=== PATIENT | male | born 1945 | race Caucasian/White ===

== ENCOUNTER 2016-09-03 12:14 | Inpatient (IN) | payer MEDICARE ==
[~2016-09-03] VITALS: Ht 185.4 cm; Wt 96.7 kg
--- NOTE | ~2016-09-03 | CON ---
[place], [place] REPORT OF CONSULTATION NAME: JOHAN SETH UNIT #: [id number] ROOM: 410 DOCTOR: KALPANA STRONG MD BIRTHDATE: [birth year] DOS: 09/04/2016 This is a consultation note on this patient. HISTORY OF PRESENT ILLNESS: The patient had a takedown colostomy in month of July actually and he was last seen in my office almost 2 weeks ago or 3 weeks ago and that time, he had no symptoms whatsoever. However, he was followed by Dr. Rivera who is his primary physician and he did some lab workup there was a dropped in his hemoglobin and hematocrit and that is why he is admitted. He already had 1 unit of transfusion packed cells. He denies any upper GI bleed, lower GI bleed or any blood in the urine or any sputum or any abdominal pain, any nausea or vomiting. He is eating okay. He is making urine and he is having good bowel movement without any obvious blood or anything. He has multiple medical issues on multiple medications and has history of atrial fibrillation. PHYSICAL EXAMINATION: GENERAL: He is absolutely symptomless actually, in the artificial light cannot determine whether he is anemic or not, but he looks pale otherwise. ABDOMEN: Soft, nontender. Incision is healed up very well. There are no signs of erythema, ecchymosis, any hematoma, any hernia or any hepatosplenomegaly. EXTREMITIES: Show no pedal edema. Pulsation 4+ equal bilaterally. There is no pedal edema, no tenderness. There is no sign of any blood anywhere. RECTAL: Not done. LABORATORY DATA: His urine looks clear. His hemoglobin was 5.2 last night and after transfusion it is up to 6.5. IMPRESSION: Obvious microcytic anemia, etiology at this time is unknown at least grossly speaking radiologically, with CAT scan and clinically there is no sign of any obvious bleeding from or orifice or any retroperitoneum hematoma or any epistaxis or anything else. Status post takedown colostomy. Surgically speaking, there is no sign of any problem that I should be healing with. I will sign off on him and if needed for anything, I could be consulted again and I did talk to the patient and explained the same fact and he agrees. Kalpana Strong MD CM:CONSTR:REPORT OF CONSULTATION 1043 09/05/16 0007 interface
[~2016-09-03 12:14] MED LIST: ACETAMINOPHEN-H1 TA2 PO; ACYCLOVIR800 MG PO; ADALAT PO; AMLODIPINE BESYL5 MG PO; ANUSOL-HC25 MG R; ASPIR LOW81 MG PO; ASPIR-LOW81 MG PO; ASPIRIN FOR AR325 MG PO; ASPIRIN325 MG PO; ATOXIMETIN-B1 CAP PO; BACTRIM DS 8001 TA1 PO; CENTRUM1 TAB PO; CIPRO250 MG PO; CIPRO500 MG PO; COUMADIN10 M1 PO; COUMADIN5 M2 PO; COUMADIN5 MG PO; COUMADIN7.5 M1 PO; DAYPRO600 M1 PO; EES400 MG PO; EPA/GLA1 SGL; EPA1000 MG PO; FISH OIL; FISH OIL EC 1,1 EACH PO; FISH OIL1 IU PO; FLAGYL500 MG PO; HYDR12.5C PO; HYDR25T PO; IBU-8800 MG PO; K-TAB20 MEQ PO; KEFLEX500 MG PO; LEVOFLOXACIN500 MG PO; LIDEX 0.05% CRE15 GM T; LISINOPRIL20 MG PO; LISINOPRIL40 MG PO; LOPRESSOR25 MG PO; LOVAZA1 GM PO; METOPROLOL TART50 M1 PO; MOBIC15 MG PO; NIFEDIPINE10 MG PO; ORPHENADRINE100 MG PO; PLAVIX75 MG PO; PREVACID15 MG PO; PROCARDIA10 MG PO; SIMVASTATIN80 MG PO; STOOL SOFTENER100 M1; TOPROL XL100 MG PO; VIBRAMYCIN100 MG PO; VICODIN 5/500 505 MG PO; VITAMIN D; VITAMIN D31000 IU PO; VITAMIN D32000 I1 PO; VOLTAREN50 M1 PO; ZITHROMAX Z PA250 MG PO
[2016-09-03 12:26] LABS: HEMATOCRIT 22.9 % (42.0-52.0); HEMOGLOBIN 6.4 g/dl (14.0-18.0)
[2016-09-03 12:42] LABS: IRON 13 ug/dL (65-175); IRON SATURATION 3 %; UIBC 355 ug/dL (110-410)
[2016-09-03 19:10] VITALS: BP 147/73
[2016-09-03 19:12] VITALS: BP 147/73
[2016-09-03] MEDS ORDERED: COUMADIN10 M1 PO (20:05)
[2016-09-03] MEDS ORDERED: COUMADIN7.5 M1 PO (20:06)
[2016-09-03 20:44] LABS: HEMATOCRIT 20.7 % (42.0-52.0); MEAN CELL VOLUME 72.1 fl (80.0-94.0); MEAN CORPUSCULAR HGB 20.6 pg (27.0-31.0); MEAN CORPUSCULAR HGB CONC 28.5 g/dl (33.0-37.0); MEAN PLATELET VOLUME 9.1 fl (9.6-12.3); PLATELET COUNT AUTOMATED 239 10*3/uL (130-400); RED BLOOD COUNT 2.87 10*6/uL (4.50-5.90); RED CELL DISTRI WIDTH 17.7 % (0-14.5); WHITE BLOOD COUNT 6.3 10*3/uL (4.8-10.8)
[2016-09-03 20:48] LABS: HEMOGLOBIN 5.9 g/dl (14.0-18.0)
[2016-09-03 20:56] LABS: INTERNATIONAL NORM RATIO 1.6 (2.0-3.5); PROTHROMBIN TIME 17.2 SECONDS (9.0-12.4)
[2016-09-03 21:00] LABS: ALBUMIN 2.9 gm/dl (3.1-4.5); BILIRUBIN, TOTAL 0.2 mg/dl (0.2-1.0); POTASSIUM 3.8 mmol/L (3.5-5.1); TOTAL PROTEIN 6.6 gm/dL (6.4-8.2)
[2016-09-03 21:11] LABS: EOSINOPHIL # 0.3 10*3/uL (0-0.4); EOSINOPHILS 4 % (1-4); LYMPHOCYTE # 2.1 10*3/uL (1.3-4.4); MONOCYTE # 0.3 10*3/uL (0.1-1.0); NEUTROPHIL # 3.6 10*3/uL (2.3-7.9); NEUTROPHILS 57 % (47-73); PLATELET SUFFICIENCY NORMAL (NORMAL); POLYCHROMASIA SLIGHT; TOTAL CELLS COUNTED 100 #CELLS
[2016-09-03 21:13] LABS: BURR CELLS FEW; HYPOCHROMIA MODERATE; OVALOCYTES FEW
[2016-09-03 21:14] LABS: TARGET CELLS FEW
[2016-09-03 21:17] LABS: MICROCYTOSIS MODERATE
[2016-09-04] VITALS (23 sets, daily range): BP systolic 139–170; BP diastolic 53–92
[2016-09-04 00:35] LABS: CKMB 0.9 ng/ml (0.5-3.6); CPK 49 U/L (39-308); TROPONIN I < 0.015 ng/ml (<0.5)
[2016-09-04 01:39] LABS: BILIRUBIN NEGATIVE (NEGATIVE); BLOOD NEGATIVE (NEGATIVE); CLARITY CLEAR (CLEAR); COLOR YELLOW (YELLOW); GLUCOSE NEGATIVE (NEGATIVE); KETONE NEGATIVE (NEGATIVE); LEUKO ESTERASE NEGATIVE (NEGATIVE); NITRITE NEGATIVE (NEGATIVE); PROTEIN NEGATIVE (NEGATIVE); UROBILINOGEN 0.2 E.U./dl (0.2-1.0)
[2016-09-04 01:49] LABS: RBC 0-2 rbc/hpf (0-2)
[2016-09-04 03:51] LABS: HEMATOCRIT 25.7 % (42.0-52.0); HEMOGLOBIN 7.3 g/dl (14.0-18.0)
[2016-09-04 06:36] LABS: CKMB 0.6 ng/ml (0.5-3.6); CPK 44 U/L (39-308)
[2016-09-04 06:40] LABS: HEMOGLOBIN A1c 5.7 % (4.8-5.6)
[2016-09-04 06:41] LABS: TROPONIN I < 0.015 ng/ml (<0.5)
[2016-09-04 06:52] LABS: INTERNATIONAL NORM RATIO 1.5 (2.0-3.5); PROTHROMBIN TIME 16.6 SECONDS (9.0-12.4)
[2016-09-04 07:15] LABS: ALKALINE PHOSPHATASE 74 U/L (45-117); BILIRUBIN, TOTAL 0.9 mg/dl (0.2-1.0); BUN 16 mg/dl (7-24); CARBON DIOXIDE 28 mmol/L (21-32); CHLORIDE 106 mmol/L (98-107); CHOLESTEROL 128 mg/dL (<200); EST GLOM FILT AFRICAN AMERICAN > 60 ml/min; FREE T4 0.93 ng/dl (0.76-1.46); GLUCOSE 90 mg/dL (65-99); HDL CHOLESTEROL 37 mg/dl (40-60); LDL CHOLESTEROL 79 mg/dL (9-159); MAGNESIUM 2.2 mg/dL (1.5-2.1); PHOSPHOROUS 2.7 mg/dL (2.5-4.9); POTASSIUM 3.5 mmol/L (3.5-5.1); SGOT/AST 14 IU/L (3-35); SGPT/ALT 18 U/L (12-78); SODIUM 142 mmol/L (136-145); TOTAL PROTEIN 6.7 gm/dL (6.4-8.2); TRIGLYCERIDES 60 mg/dl (<150); VLDL CHOLESTEROL 12 mg/dL (6-40)
[2016-09-04 07:20] LABS: FOLIC ACID 19.44 ng/mL (>5.38)
[2016-09-04 07:26] LABS: BASO % 0.3 % (0.0-1.0); EOS # 0.2 10*3/uL (0.0-0.4); EOS % 2.5 % (1.0-4.0); HEMATOCRIT 25.5 % (42.0-52.0); HEMOGLOBIN 7.4 g/dl (14.0-18.0); LYMPH # 1.7 10*3/uL (1.3-4.4); LYMPH % 24.6 % (27.0-41.0); MEAN CELL VOLUME 73.5 fl (80.0-94.0); MEAN CORPUSCULAR HGB 21.3 pg (27.0-31.0); MONO # 0.6 10*3/uL (0.1-1.0); MONO % 8.2 % (3.0-9.0); NEUT # 4.4 10*3/uL (2.3-7.9); NEUT % 64.1 % (47.0-73.0); PLATELET COUNT AUTOMATED 269 10*3/uL (130-400); RED BLOOD COUNT 3.47 10*6/uL (4.50-5.90); RED CELL DISTRI WIDTH 18.7 % (0-14.5); WHITE BLOOD COUNT 6.8 10*3/uL (4.8-10.8)
[2016-09-04 12:07] LABS: HEMATOCRIT 27.5 % (42.0-52.0); HEMOGLOBIN 8.2 g/dl (14.0-18.0)
[2016-09-04 12:25] LABS: CPK 44 U/L (39-308)
[2016-09-04 12:26] LABS: CKMB < 0.5 ng/ml (0.5-3.6); TROPONIN I < 0.015 ng/ml (<0.5)
[2016-09-05] VITALS: BP 148/88
[2016-09-05 06:07] LABS: BASO % 0.2 % (0.0-1.0); EOS # 0.2 10*3/uL (0.0-0.4); EOS % 2.8 % (1.0-4.0); HEMOGLOBIN 9.4 g/dl (14.0-18.0); LYMPH # 2.6 10*3/uL (1.3-4.4); LYMPH % 30.8 % (27.0-41.0); MEAN CELL VOLUME 74.9 fl (80.0-94.0); MEAN CORPUSCULAR HGB 22.7 pg (27.0-31.0); MEAN CORPUSCULAR HGB CONC 30.3 g/dl (33.0-37.0); MEAN PLATELET VOLUME 10.4 fl (9.6-12.3); MONO # 0.8 10*3/uL (0.1-1.0); MONO % 9.8 % (3.0-9.0); NEUT # 4.8 10*3/uL (2.3-7.9); NUCLEATED RED BLOOD CELL 0.2 % (0.0-0.0); PLATELET COUNT AUTOMATED 300 10*3/uL (130-400); RED BLOOD COUNT 4.14 10*6/uL (4.50-5.90); RED CELL DISTRI WIDTH 19.8 % (0-14.5); WHITE BLOOD COUNT 8.5 10*3/uL (4.8-10.8)
[2016-09-05 06:52] LABS: INTERNATIONAL NORM RATIO 1.7 (2.0-3.5); PROTHROMBIN TIME 18.1 SECONDS (9.0-12.4)
[2016-09-05 08:00] VITALS: BP 160/80
[2016-09-05 12:00] VITALS: BP 153/78
[2016-09-05] MEDS ORDERED: FEROSUL325 MG PO (15:21)
== END 2016-09-05 15:42 | disposition home or self-care (01) | DRG 811 ==
LOC: ZRVPINT2 12:14 → 4E 18:48
PROVIDERS: Internal Medicine; Student in an Organized Health Care Education/Training Program
PROC: 30233N1 Transfusion of Nonautologous Red Blood Cells into Peripheral Vein, Percutaneous Approach (ICD-10-PCS; principal; 2016-09-03)
DX: D50.9 Iron deficiency anemia, unspecified (principal); N17.0 Acute kidney failure with tubular necrosis; E44.0 Moderate protein-calorie malnutrition; D68.59 Other primary thrombophilia; E83.51 Hypocalcemia; N30.90 Cystitis, unspecified without hematuria; I48.91 Unspecified atrial fibrillation; I10 Essential (primary) hypertension; E78.5 Hyperlipidemia, unspecified; R00.0 Tachycardia, unspecified; R73.9 Hyperglycemia, unspecified; I25.10 Atherosclerotic heart disease of native coronary artery without angina pectoris; M45.9 Ankylosing spondylitis of unspecified sites in spine; K57.90 Diverticulosis of intestine, part unspecified, without perforation or abscess without bleeding; Z79.01 Long term (current) use of anticoagulants; Z68.28 Body mass index [BMI] 28.0-28.9, adult

== ENCOUNTER → 2016-09-07 | Outpatient (CLI) | payer MEDICARE ==
[~2016-09-07] MED LIST changes: +FEROSUL325 MG PO; +NORVASC10 MG PO
[2016-09-07 10:58] LABS: BASO % 0.3 % (0.0-1.0); EOS # 0.1 10*3/uL (0.0-0.4); HEMATOCRIT 33.9 % (42.0-52.0); LYMPH # 1.7 10*3/uL (1.3-4.4); LYMPH % 23.8 % (27.0-41.0); MEAN CELL VOLUME 76.7 fl (80.0-94.0); MEAN CORPUSCULAR HGB 22.6 pg (27.0-31.0); MEAN CORPUSCULAR HGB CONC 29.5 g/dl (33.0-37.0); MEAN PLATELET VOLUME 9.7 fl (9.6-12.3); MONO # 0.5 10*3/uL (0.1-1.0); MONO % 6.7 % (3.0-9.0); NEUT # 4.7 10*3/uL (2.3-7.9); NEUT % 66.8 % (47.0-73.0); PLATELET COUNT AUTOMATED 300 10*3/uL (130-400); RED BLOOD COUNT 4.42 10*6/uL (4.50-5.90)
[2016-09-07 11:27] LABS: INTERNATIONAL NORM RATIO 1.9 (2.0-3.5); PROTHROMBIN TIME 21.1 SECONDS (9.0-12.4)
== END | disposition home or self-care (01) ==
LOC: LAB 10:03
PROVIDERS: Internal Medicine
DX: D50.9 Iron deficiency anemia, unspecified (principal)

== ENCOUNTER 2016-10-30 20:03 | Inpatient (IN) | payer MEDICARE ==
[~2016-10-30] VITALS: Ht 185.4 cm; Wt 91.3 kg
--- NOTE | ~2016-10-30 | PR ---
[place], [place] PROGRESS NOTE NAME: JOHAN SETH UNIT #: [id number] ROOM: 411 DOCTOR: MELISSA EPSTEIN MD BIRTHDATE: [birth year] DOS: 11/01/2016 CARDIOLOGY PROGRESS NOTE REASON FOR VISIT: Atrial fibrillation, coronary artery disease. HISTORY OF PRESENT ILLNESS: The patient is feeling better. Denies any chest pain or shortness of breath. His abdominal discomfort is almost resolved. No nausea, no vomiting. Denies any palpitations or dizziness, no fever, no chills. No orthopnea. REVIEW OF SYSTEMS: Review of the 8 systems negative except as mentioned above. RHYTHM STRIPS: The patient is in atrial fibrillation. PHYSICAL EXAMINATION: VITAL SIGNS: Blood pressure 177/92, pulse 73, respiratory rate was 14. GENERAL: Alert, comfortable, in no acute distress. HEENT: Pupils are round. No jaundice. Tongue was moist and pharynx was clear. NECK: Supple, no distended neck veins, no carotid bruit. CHEST: Symmetrical, nontender. LUNGS: Clear to auscultation bilaterally. HEART: Irregularly irregular. No S3. ABDOMEN: Bowel sounds normal, nontender. EXTREMITIES: Showed no edema. Distal pulses are palpable. MEDICATIONS: medications reviewed. LABORATORY DATA: Reviewed. IMPRESSION: 1. Chronic atrial fibrillation. 2. Coronary artery disease, status post stents about 10 years ago. 3. Hypertension. 4. Small-bowel obstruction, currently improving. RECOMMENDATIONS: 1. Denies any chest pain or shortness of breath. His cardiac medications and blood pressure medications are resumed today. 2. We will resume Coumadin tomorrow if he is stable. 3. No further cardiac testing. 4. Discussed with Dr. Bowers about resuming Coumadin tomorrow unless he needs surgical intervention. [place], [place] PROGRESS NOTE NAME: JOHAN SETH [place] UNIT #: [id number] ROOM: 411 DOCTOR: MELISSA EPSTEIN MD BIRTHDATE: [birth year] MELISSA EPSTEIN MD CM:ERASMOTRANS [id number] MELISSA EPSTEIN MD 11/02/16 0039 interface
--- NOTE | ~2016-10-30 | PR ---
[place], [place] PROGRESS NOTE NAME: JOHAN SETH UNIT #: [id number] ROOM: 411 DOCTOR: MELISSA EPSTEIN MD BIRTHDATE: [birth year] DOS: 11/03/2016 CARDIOLOGY PROGRESS NOTE REASON FOR VISIT: Atrial fibrillation and coronary artery disease. SUBJECTIVE: The patient is feeling better. He is tolerating his diet and p.o. medications. No abdominal pain. He is ambulating without any discomfort. He is anticipating discharge today. No chest pain or shortness of breath. No PND. No orthopnea. No edema. REVIEW OF SYSTEMS: Review of the 8 systems is negative. PHYSICAL EXAMINATION: VITAL SIGNS: Blood pressure 137/77, pulse 56, respiratory rate 18. GENERAL: Alert, comfortable, in no acute distress. NECK: Supple. No distended neck veins. No carotid bruit. CHEST: Symmetrical, nontender. LUNGS: Clear to auscultation bilaterally. HEART: Slightly irregular. No S3. ABDOMEN: Nontender. Bowel sounds normal. EXTREMITIES: Showed no edema. Distal pulses are palpable. DIAGNOSTIC TESTS: Review of the diagnostic test, INR is 1.4. IMPRESSION: 1. Chronic atrial fibrillation. 2. Coronary artery disease, status post stents long time ago. 3. Small bowel obstruction, resolved. 4. Hypertension, much better than yesterday. RECOMMENDATIONS: 1. Continue current medications. 2. Keep the INR 2 to 3. 3. If he goes home today, he needs to have his INR checked within a couple of days as well as early next week. 4. He will follow up with Dr. Painter in 2-3 weeks after discharge. [place], [place] PROGRESS NOTE NAME: JOHAN SETH UNIT #: [id number] ROOM: 411 DOCTOR: MELISSA EPSTEIN MD BIRTHDATE: [birth year] MELISSA EPSTEIN MD CM:PNTRANS [id number] 6 MELISSA EPSTEIN MD 11/05/16 05 interface
--- NOTE | ~2016-10-30 | PR ---
[place], [place] PROGRESS NOTE NAME: JOHAN SETH UNIT #: [id number] ROOM: 411 DOCTOR: MELISSA EPSTEIN MD BIRTHDATE: [birth year] DOS: 11/02/2016 REASON FOR VISIT: Atrial fibrillation and coronary artery disease. HISTORY OF PRESENT ILLNESS: The patient is feeling better and he is tolerating p.o. diet and medications. His abdominal discomfort has resolved. No chest pain, dizziness or palpitations. No nausea, no PND, no orthopnea. REVIEW OF SYSTEMS: Eight systems negative. RHYTHM STRIPS: The patient was in atrial fibrillation. PHYSICAL EXAMINATION: VITAL SIGNS: Blood pressure 170/98, pulse 69 and respiratory rate of 20. GENERAL: Alert, comfortable, in no acute distress. HEAD AND NECK: Neck is supple. No distended neck veins. No carotid bruits. CHEST: Symmetrical, nontender. LUNGS: Clear to auscultation bilaterally. HEART: Irregularly irregular, grade 1/6 systolic murmur. No S3, no palpable thrills. ABDOMEN: Benign, nontender. Bowel sounds normal. EXTREMITIES: Showed no edema. Distal pulses are palpable. SKIN: Warm and dry. No cyanosis, no clubbing. MEDICATIONS: Reviewed. IMPRESSION: 1. Chronic atrial fibrillation, rate controlled. 2. Coronary artery disease, status post stents over 10 years ago. 3. Hypertension, needs better control. 4. Small-bowel obstruction, currently resolving. RECOMMENDATIONS: 1. His blood pressure medications resumed. 2. Continue to watch his blood pressure and heart rates. 3. We will resume the Coumadin today and monitor his INR. 4. If he is stable, possible discharge tomorrow and he will get his protime done at Dr. Rivera's office. 5. Follow up with Dr. Painter in 2-3 weeks after discharge. [place], [place] PROGRESS NOTE NAME: ROLOJOHAN Batool UNIT #: [id number] ROOM: 411 DOCTOR: MELISSA EPSTEIN MD BIRTHDATE: [birth year] MELISSA EPSTEIN MD CM:PNTRANS [id number] MELISSA EPSTEIN MD 11/04/16 0120 interface
--- NOTE | ~2016-10-30 | CON ---
[place], [place] REPORT OF CONSULTATION NAME: JOHAN SETH UNIT #: [id number] ROOM: 411 DOCTOR: MELISSA EPSTEIN MD BIRTHDATE: [birth year] DOS: 10/31/2016 CARDIOLOGY CONSULTATION REPORT REASONS FOR CONSULTATION: Cardiac clearance for surgery and also coronary artery disease and atrial fibrillation. HISTORY OF PRESENT ILLNESS: The patient is a 71-year-old gentleman, known to Dr. Painter for his coronary artery disease and atrial fibrillation. He was admitted with abdominal discomfort and for small bowel obstruction and was admitted to the hospital and Dr. Bowers was consulted and he may require possible abdominal surgery and Cardiology was consulted for cardiac clearance for the surgery. He denied any chest pain, shortness of breath or palpitations. No dizziness, no edema, no orthopnea, no headache and no syncopal attacks. Only his complaint is abdominal pain with 1 episode of vomiting at home. History of multiple bowel surgeries in the past. REVIEW OF SYSTEMS: Review of the 8 systems negative, except as mentioned above. PAST MEDICAL HISTORY: 1. Coronary artery disease, status post history of stents over 10 years ago. 2. Chronic atrial fibrillation, on anticoagulation. 3. Dyslipidemia. 4. Hypertension. 5. History of transient ischemic attack about 20 years ago. 6. Arthritis. 7. Diverticulosis. 8. Ankylosing spondylitis. PAST SURGICAL HISTORY: 1. History of cholecystectomy. 2. History of colostomy. 3. Cardiac stents. 4. Colostomy, which is reversed. SOCIAL HISTORY: The patient does not drink or use illicit drugs and does not smoke. FAMILY HISTORY: 1. Father at the age of 65 from myocardial infarction, had hypertension. 2. Mother at the age around 60 years from aneurysm. 3. Sister has breast cancer. ALLERGIES: THE PATIENT IS ALLERGIC TO PENICILLIN, CAUSES HIVES AND REDNESS. HOME MEDICATIONS: Reviewed. PHYSICAL EXAMINATION: GENERAL: The patient is alert and oriented, in no acute distress. [place], [place] REPORT OF CONSULTATION NAME: JOHAN SETH UNIT #: [id number] ROOM: 411 DOCTOR: MELISSA EPSTEIN MD BIRTHDATE: [birth year] VITAL SIGNS: Blood pressure is 160/88, pulse 71 and respiratory rate is 14. HEAD AND NECK: Pupils are round and equal. No jaundice. Tongue was moist and pharynx was clear. Neck was supple. No distended veins and no carotid bruit. Thyroid not palpable. CHEST: Symmetrical, nontender. LUNGS: Clear to auscultation with good air entry. HEART: Irregular. Grade 1/6 systolic murmur. No S3 and no palpable thrills. ABDOMEN: Showed diminished bowel sounds, nontender. No palpable aorta. Previous scar from surgery. EXTREMITIES: Showed no edema. Distal pulses are palpable. SKIN: Warm and dry. No cyanosis and no clubbing. PSYCHIATRIC: The patient is alert, oriented. No focal neurologic deficits. GENITOURINARY: Examination deferred. RECTAL: Examination deferred. REVIEW OF THE DIAGNOSTIC TESTS: EKG showed atrial fibrillation with some inferolateral ST changes, nondiagnostic. CBC, chemistry and pertinent labs reviewed. CURRENT MEDICATIONS: Reviewed. IMPRESSION: 1. Small bowel obstruction. 2. History of chronic atrial fibrillation, rate is controlled. 3. Coronary artery disease, status post previous stents over 10 years ago. 4. Hypertension. 5. History of dyslipidemia. 6. History of multiple abdominal surgeries. 7. History of transient ischemic attack over 20 years ago. RECOMMENDATIONS: 1. Currently, he is n.p.o. 2. Denies any chest pain or shortness of breath at home. 3. Clinically, there are no signs of heart failure. 4. He will be cleared for his surgical procedure. From the cardiac-standpoint, has moderate cardiac risks and the patient is aware of the risks and is agreeable to proceed with the abdominal surgery if required. 5. Continue Lovenox while he is off Coumadin and Lovenox will be held prior to surgery and resumed postoperatively and also resume his Coumadin and aspirin postoperatively. 6. When he tolerates p.o. medications, resume his beta-blockers and statins. 7. There is no family at the bedside. The above treatment plan discussed with the patient and all questions answered. CONSULTING PHYSICIAN: Anne Moore DO. PRIMARY CARE PHYSICIAN: Colleen Rivera DO. [place], [place] REPORT OF CONSULTATION NAME: JOHAN SETH UNIT #: [id number] ROOM: 411 DOCTOR: TETE LINDER,MELISSA BIRTHDATE: [birth year] MELISSA EPSTEIN MD CM:CONSTR:REPORT OF CONSULTATION 1607 10/31/16 2357 interface
[~2016-10-30 20:03] MED LIST changes: -NORVASC10 MG PO
[2016-10-30 20:22] VITALS: BP 169/93
[2016-10-30 21:59] LABS: BASO % 0.2 % (0.0-1.0); EOS % 0.1 % (1.0-4.0); HEMATOCRIT 45.7 % (42.0-52.0); IG # 0.1 10*3/uL (0.0-0.1); LYMPH # 1.2 10*3/uL (1.3-4.4); LYMPH % 7.4 % (27.0-41.0); MEAN CELL VOLUME 80.2 fl (80.0-94.0); MEAN CORPUSCULAR HGB 26.3 pg (27.0-31.0); MEAN CORPUSCULAR HGB CONC 32.8 g/dl (33.0-37.0); MEAN PLATELET VOLUME 9.2 fl (9.6-12.3); MONO # 0.9 10*3/uL (0.1-1.0); MONO % 5.4 % (3.0-9.0); NEUT # 14.4 10*3/uL (2.3-7.9); NEUT % 86.5 % (47.0-73.0); PLATELET COUNT AUTOMATED 290 10*3/uL (130-400); RED CELL DISTRI WIDTH 20.3 % (0-14.5); WHITE BLOOD COUNT 16.6 10*3/uL (4.8-10.8)
[2016-10-30 22:20] LABS: ALBUMIN 3.8 gm/dl (3.1-4.5); ALKALINE PHOSPHATASE 88 U/L (45-117); BILIRUBIN, DIRECT 0.1 mg/dL (0.0-0.2); BILIRUBIN, TOTAL 0.5 mg/dl (0.2-1.0); BUN 19 mg/dl (7-24); CARBON DIOXIDE 27 mmol/L (21-32); CHLORIDE 102 mmol/L (98-107); EST GLOM FILT AFRICAN AMERICAN > 60 ml/min; GLUCOSE 140 mg/dL (65-99); POTASSIUM 3.4 mmol/L (3.5-5.1); SGOT/AST 29 IU/L (3-35); SGPT/ALT 41 U/L (12-78); SODIUM 141 mmol/L (136-145); TOTAL PROTEIN 8.3 gm/dL (6.4-8.2)
[2016-10-31 01:37] VITALS: BP 167/95
[2016-10-31 02:39] LABS: BILIRUBIN NEGATIVE (NEGATIVE); BLOOD NEGATIVE (NEGATIVE); CLARITY CLEAR (CLEAR); COLOR YELLOW (YELLOW); GLUCOSE NEGATIVE (NEGATIVE); KETONE NEGATIVE (NEGATIVE); LEUKO ESTERASE NEGATIVE (NEGATIVE); NITRITE NEGATIVE (NEGATIVE); PROTEIN 1+ (NEGATIVE); SPECIFIC GRAVITY 1.015 (1.005-1.030); UROBILINOGEN 0.2 E.U./dl (0.2-1.0)
[2016-10-31 02:45] VITALS: BP 157/77
[2016-10-31 03:07] LABS: URINE REFLEX COMMENT NO (NO)
[2016-10-31 06:40] LABS: BASO % 0.2 % (0.0-1.0); EOS # 0.1 10*3/uL (0.0-0.4); EOS % 0.4 % (1.0-4.0); HEMOGLOBIN 13.3 g/dl (14.0-18.0); LYMPH % 17.4 % (27.0-41.0); MEAN CELL VOLUME 81.6 fl (80.0-94.0); MEAN CORPUSCULAR HGB 25.8 pg (27.0-31.0); MEAN CORPUSCULAR HGB CONC 31.7 g/dl (33.0-37.0); MEAN PLATELET VOLUME 9.4 fl (9.6-12.3); MONO # 0.7 10*3/uL (0.1-1.0); MONO % 5.8 % (3.0-9.0); NEUT # 8.9 10*3/uL (2.3-7.9); NEUT % 75.9 % (47.0-73.0); PLATELET COUNT AUTOMATED 270 10*3/uL (130-400); RED BLOOD COUNT 5.15 10*6/uL (4.50-5.90); RED CELL DISTRI WIDTH 20.3 % (0-14.5); WHITE BLOOD COUNT 11.7 10*3/uL (4.8-10.8)
[2016-10-31 07:02] LABS: HEMOGLOBIN A1c 5.2 % (4.8-5.6)
[2016-10-31 07:11] LABS: BUN 18 mg/dl (7-24); CARBON DIOXIDE 31 mmol/L (21-32); CHLORIDE 104 mmol/L (98-107); CHOLESTEROL 159 mg/dL (<200); EST GLOM FILT AFRICAN AMERICAN > 60 ml/min; GLUCOSE 115 mg/dL (65-99); INTERNATIONAL NORM RATIO 1.9 (2.0-3.5); MAGNESIUM 2.5 mg/dL (1.5-2.1); POTASSIUM 3.6 mmol/L (3.5-5.1); PROTHROMBIN TIME 20.8 SECONDS (9.0-12.4); SODIUM 143 mmol/L (136-145)
[2016-10-31 07:23] LABS: HDL CHOLESTEROL 32 mg/dl (40-60); LDL CHOLESTEROL 104 mg/dL (9-159); PHOSPHOROUS 3.4 mg/dL (2.5-4.9); TRIGLYCERIDES 117 mg/dl (<150); VLDL CHOLESTEROL 23 mg/dL (6-40)
[2016-10-31 07:35] LABS: VITAMIN D, 25-HYDROXY 30.4 ng/mL (30-100)
[2016-10-31 07:43] LABS: FOLIC ACID > 24.00 ng/mL (>5.38)
[2016-10-31 08:00] VITALS: BP 162/86
[2016-10-31 12:00] VITALS: BP 168/84
[2016-10-31 16:00] VITALS: BP 164/78
[2016-10-31 20:00] VITALS: BP 148/74
[2016-11-01] VITALS: BP 160/80
[2016-11-01 06:14] LABS: BASO % 0.2 % (0.0-1.0); EOS # 0.1 10*3/uL (0.0-0.4); EOS % 0.6 % (1.0-4.0); HEMOGLOBIN 13.1 g/dl (14.0-18.0); LYMPH # 2.4 10*3/uL (1.3-4.4); LYMPH % 22.6 % (27.0-41.0); MEAN CELL VOLUME 81.8 fl (80.0-94.0); MEAN CORPUSCULAR HGB 26.1 pg (27.0-31.0); MONO # 0.8 10*3/uL (0.1-1.0); NEUT # 7.5 10*3/uL (2.3-7.9); NEUT % 69.4 % (47.0-73.0); PLATELET COUNT AUTOMATED 232 10*3/uL (130-400); RED BLOOD COUNT 5.01 10*6/uL (4.50-5.90); RED CELL DISTRI WIDTH 20.1 % (0-14.5); WHITE BLOOD COUNT 10.8 10*3/uL (4.8-10.8)
[2016-11-01 06:50] LABS: PROTHROMBIN TIME 22.1 SECONDS (9.0-12.4)
[2016-11-01 08:00] VITALS: BP 177/92
[2016-11-01 10:30] VITALS: BP 160/80
[2016-11-01 12:00] VITALS: BP 158/89
[2016-11-01 16:00] VITALS: BP 150/77
[2016-11-01 20:00] VITALS: BP 154/85
[2016-11-02] VITALS: BP 150/68
[2016-11-02 06:21] LABS: INTERNATIONAL NORM RATIO 1.7 (2.0-3.5); PROTHROMBIN TIME 18.2 SECONDS (9.0-12.4)
[2016-11-02 08:00] VITALS: BP 170/98
[2016-11-02 12:00] VITALS: BP 134/66
[2016-11-02 16:00] VITALS: BP 156/71
[2016-11-02 20:00] VITALS: BP 161/78
[2016-11-03] VITALS: BP 157/77
[2016-11-03 07:15] LABS: INTERNATIONAL NORM RATIO 1.4 (2.0-3.5)
[2016-11-03 08:00] VITALS: BP 178/92
[2016-11-03] MEDS ORDERED: NORVASC10 MG PO (09:54)
== END 2016-11-03 12:17 | disposition home or self-care (01) | DRG 389 ==
LOC: ED 20:03 → EDHOLD 23:41 → 4E 23:41
PROVIDERS: Emergency Medicine; Internal Medicine; Internal Medicine Hospice and Palliative Medicine
DX: K56.5 Intestinal adhesions [bands] with obstruction (postinfection) (principal); D68.59 Other primary thrombophilia; I48.2 Chronic atrial fibrillation; R73.9 Hyperglycemia, unspecified; I25.10 Atherosclerotic heart disease of native coronary artery without angina pectoris; M45.9 Ankylosing spondylitis of unspecified sites in spine; E87.6 Hypokalemia; M15.9 Polyosteoarthritis, unspecified; E78.5 Hyperlipidemia, unspecified; I10 Essential (primary) hypertension; Z86.73 Personal history of transient ischemic attack (TIA), and cerebral infarction without residual deficits; Z90.49 Acquired absence of other specified parts of digestive tract; Z95.5 Presence of coronary angioplasty implant and graft; Z93.3 Colostomy status; Z82.49 Family history of ischemic heart disease and other diseases of the circulatory system; Z80.3 Family history of malignant neoplasm of breast; Z88.0 Allergy status to penicillin; Z79.82 Long term (current) use of aspirin; Z79.01 Long term (current) use of anticoagulants; Z79.899 Other long term (current) drug therapy

== ENCOUNTER 2016-11-30 19:11 | Inpatient (IN) | payer MEDICARE ==
[~2016-11-30] VITALS: Ht 185.4 cm; Wt 94.9 kg
[~2016-11-30 19:11] MED LIST changes: +NORVASC10 MG PO
[2016-11-30 19:27] VITALS: BP 154/82
[2016-11-30 20:25] LABS: BASO % 0.2 % (0.0-1.0); EOS # 0.1 10*3/uL (0.0-0.4); EOS % 1.5 % (1.0-4.0); HEMATOCRIT 41.6 % (42.0-52.0); HEMOGLOBIN 13.9 g/dl (14.0-18.0); LYMPH % 23.5 % (27.0-41.0); MEAN CELL VOLUME 81.6 fl (80.0-94.0); MEAN CORPUSCULAR HGB 27.3 pg (27.0-31.0); MEAN CORPUSCULAR HGB CONC 33.4 g/dl (33.0-37.0); MEAN PLATELET VOLUME 9.7 fl (9.6-12.3); MONO # 0.7 10*3/uL (0.1-1.0); MONO % 7.5 % (3.0-9.0); NEUT # 5.8 10*3/uL (2.3-7.9); NEUT % 67.1 % (47.0-73.0); PLATELET COUNT AUTOMATED 231 10*3/uL (130-400); RED CELL DISTRI WIDTH 17.3 % (0-14.5); WHITE BLOOD COUNT 8.6 10*3/uL (4.8-10.8)
[2016-11-30 20:34] LABS: BILIRUBIN NEGATIVE (NEGATIVE); BLOOD TRACE-INTACT (NEGATIVE); CLARITY SL CLOUDY (CLEAR); COLOR YELLOW (YELLOW); GLUCOSE NEGATIVE (NEGATIVE); KETONE NEGATIVE (NEGATIVE); LEUKO ESTERASE NEGATIVE (NEGATIVE); NITRITE NEGATIVE (NEGATIVE); PH 6.5 (5.0-9.0); PROTEIN NEGATIVE (NEGATIVE); UROBILINOGEN 0.2 E.U./dl (0.2-1.0)
[2016-11-30 20:41] LABS: ALBUMIN 3.7 gm/dl (3.1-4.5); ALKALINE PHOSPHATASE 83 U/L (45-117); BILIRUBIN, TOTAL 0.4 mg/dl (0.2-1.0); BUN 16 mg/dl (7-24); C-REACTIVE PROTEIN 0.68 MG/DL (0-0.3); CARBON DIOXIDE 33 mmol/L (21-32); CHLORIDE 102 mmol/L (98-107); EST GLOM FILT AFRICAN AMERICAN > 60 ml/min; GLUCOSE 108 mg/dL (65-99); POTASSIUM 3.2 mmol/L (3.5-5.1); SGOT/AST 19 IU/L (3-35); SGPT/ALT 31 U/L (12-78); SODIUM 142 mmol/L (136-145); TOTAL PROTEIN 7.8 gm/dL (6.4-8.2)
[2016-11-30 20:47] LABS: BACTERIA 1+; EPITHELIAL CELLS 0-2; RBC 0-2 rbc/hpf (0-2); URINE REFLEX COMMENT NO (NO)
[2016-12-01] VITALS: BP 188/86
[2016-12-01 01:00] VITALS: BP 188/86
[2016-12-01 06:17] LABS: BASO % 0.1 % (0.0-1.0); EOS # 0.1 10*3/uL (0.0-0.4); EOS % 1.2 % (1.0-4.0); HEMATOCRIT 41.3 % (42.0-52.0); HEMOGLOBIN 13.4 g/dl (14.0-18.0); LYMPH % 21.9 % (27.0-41.0); MEAN CELL VOLUME 82.6 fl (80.0-94.0); MEAN CORPUSCULAR HGB 26.8 pg (27.0-31.0); MEAN CORPUSCULAR HGB CONC 32.4 g/dl (33.0-37.0); MONO # 0.8 10*3/uL (0.1-1.0); MONO % 8.3 % (3.0-9.0); NEUT # 6.4 10*3/uL (2.3-7.9); NEUT % 68.3 % (47.0-73.0); PLATELET COUNT AUTOMATED 243 10*3/uL (130-400); RED CELL DISTRI WIDTH 17.6 % (0-14.5); WHITE BLOOD COUNT 9.3 10*3/uL (4.8-10.8)
[2016-12-01 06:35] LABS: CKMB 0.6 ng/ml (0.5-3.6); CPK 60 U/L (39-308)
[2016-12-01 06:48] LABS: TROPONIN I < 0.015 ng/ml (<0.045)
[2016-12-01 06:59] LABS: CHLORIDE 103 mmol/L (98-107); POTASSIUM 3.4 mmol/L (3.5-5.1); SODIUM 142 mmol/L (136-145)
[2016-12-01 07:10] LABS: VITAMIN D, 25-HYDROXY 29.7 ng/mL (30-100)
[2016-12-01 07:12] LABS: FOLIC ACID > 24.00 ng/mL (>5.38)
[2016-12-01 07:13] LABS: ALBUMIN 3.4 gm/dl (3.1-4.5); ALKALINE PHOSPHATASE 90 U/L (45-117); BILIRUBIN, TOTAL 0.5 mg/dl (0.2-1.0); BUN 13 mg/dl (7-24); CARBON DIOXIDE 29 mmol/L (21-32); EST GLOM FILT AFRICAN AMERICAN > 60 ml/min; FREE T4 0.81 ng/dl (0.76-1.46); GLUCOSE 115 mg/dL (65-99); MAGNESIUM 2.3 mg/dL (1.5-2.1); PHOSPHOROUS 2.8 mg/dL (2.5-4.9); SGOT/AST 155 IU/L (3-35); SGPT/ALT 116 U/L (12-78); TOTAL PROTEIN 7.5 gm/dL (6.4-8.2)
[2016-12-01 07:15] LABS: PROTHROMBIN TIME 22.1 SECONDS (9.0-12.4)
[2016-12-01 08:00] VITALS: BP 146/64
[2016-12-01 12:00] VITALS: BP 140/64
[2016-12-01 12:09] LABS: CPK 63 U/L (39-308)
[2016-12-01 12:10] LABS: CKMB 0.6 ng/ml (0.5-3.6)
[2016-12-01 12:11] LABS: TROPONIN I < 0.015 ng/ml (<0.045)
[2016-12-01 16:00] VITALS: BP 155/73
[2016-12-01 18:27] LABS: CPK 66 U/L (39-308)
[2016-12-01 18:28] LABS: CKMB < 0.5 ng/ml (0.5-3.6); TROPONIN I < 0.015 ng/ml (<0.045)
[2016-12-01 20:00] VITALS: BP 172/86
[2016-12-02] VITALS: BP 153/59
[2016-12-02 07:28] LABS: INTERNATIONAL NORM RATIO 2.1 (2.0-3.5); PROTHROMBIN TIME 23.4 SECONDS (9.0-12.4)
[2016-12-02 07:30] LABS: ALBUMIN 3.4 gm/dl (3.1-4.5); ALKALINE PHOSPHATASE 86 U/L (45-117); BILIRUBIN, TOTAL 0.4 mg/dl (0.2-1.0); BUN 14 mg/dl (7-24); CARBON DIOXIDE 29 mmol/L (21-32); CHLORIDE 106 mmol/L (98-107); EST GLOM FILT AFRICAN AMERICAN > 60 ml/min; GLUCOSE 95 mg/dL (65-99); POTASSIUM 3.7 mmol/L (3.5-5.1); SGOT/AST 44 IU/L (3-35); SGPT/ALT 69 U/L (12-78); SODIUM 145 mmol/L (136-145)
[2016-12-02 08:00] VITALS: BP 120/86
[2016-12-02] MEDS ORDERED: NAPROXEN375 MG PO (09:34)
== END 2016-12-02 10:46 | disposition home or self-care (01) | DRG 372 ==
LOC: ED 19:11 → 4E 23:35 → EDHOLD 23:35 → 4E 23:42
PROVIDERS: Emergency Medicine Emergency Medical Services; Internal Medicine; Internal Medicine Hospice and Palliative Medicine
DX: A04.9 Bacterial intestinal infection, unspecified (principal); K56.60 Unspecified intestinal obstruction; E44.0 Moderate protein-calorie malnutrition; D68.59 Other primary thrombophilia; I48.2 Chronic atrial fibrillation; D64.9 Anemia, unspecified; I10 Essential (primary) hypertension; E78.5 Hyperlipidemia, unspecified; E87.6 Hypokalemia; R31.29 Other microscopic hematuria; R82.71 Bacteriuria; R73.9 Hyperglycemia, unspecified; I25.10 Atherosclerotic heart disease of native coronary artery without angina pectoris; M19.90 Unspecified osteoarthritis, unspecified site; M45.9 Ankylosing spondylitis of unspecified sites in spine; R74.0 Nonspecific elevation of levels of transaminase and lactic acid dehydrogenase [LDH]; K57.90 Diverticulosis of intestine, part unspecified, without perforation or abscess without bleeding; Z86.73 Personal history of transient ischemic attack (TIA), and cerebral infarction without residual deficits; Z68.29 Body mass index [BMI] 29.0-29.9, adult; Z90.49 Acquired absence of other specified parts of digestive tract; Z82.49 Family history of ischemic heart disease and other diseases of the circulatory system; Z80.3 Family history of malignant neoplasm of breast; Z84.89 Family history of other specified conditions; Z95.818 Presence of other cardiac implants and grafts; Z88.0 Allergy status to penicillin; Z79.82 Long term (current) use of aspirin; Z79.899 Other long term (current) drug therapy

== ENCOUNTER 2016-12-19 16:05 | Emergency (ER) | payer MEDICARE ==
[~2016-12-19] VITALS: Ht 185.4 cm; Wt 97.5 kg
--- NOTE | ~2016-12-19 | EKG ---
[place], [place] ELECTROCARDIOGRAM REPORT NAME: JOHAN SETH UNIT #: [id number] ROOM: DOCTOR: RODRIGUE ANTUNEZ MD BIRTHDATE: [birth year] DOS: 12/19/2016 TIME: 1755 hours. Atrial fibrillation with slow ventricular response. Abnormal electrocardiogram. RODRIGUE ANTUNEZ MD CM:EKGRPT:ELECTROCARDIOGRAM REPORT 1224 1614 RODRIGUE ANTUNEZ MD
[~2016-12-19 16:05] MED LIST changes: +NAPROXEN375 MG PO
[2016-12-19 17:15] LABS: BASO % 0.2 % (0.0-1.0); EOS % 0.4 % (1.0-4.0); HEMATOCRIT 33.5 % (42.0-52.0); HEMOGLOBIN 11.1 g/dl (14.0-18.0); LYMPH % 20.3 % (27.0-41.0); MEAN CELL VOLUME 84.4 fl (80.0-94.0); MEAN CORPUSCULAR HGB CONC 33.1 g/dl (33.0-37.0); MONO # 0.5 10*3/uL (0.1-1.0); MONO % 4.9 % (3.0-9.0); NEUT # 7.4 10*3/uL (2.3-7.9); NEUT % 73.9 % (47.0-73.0); PLATELET COUNT AUTOMATED 236 10*3/uL (130-400); RED BLOOD COUNT 3.97 10*6/uL (4.50-5.90); RED CELL DISTRI WIDTH 16.6 % (0-14.5)
[2016-12-19 17:31] LABS: ALBUMIN 3.3 gm/dl (3.1-4.5); ALKALINE PHOSPHATASE 69 U/L (45-117); BILIRUBIN, TOTAL 0.3 mg/dl (0.2-1.0); BUN 21 mg/dl (7-24); CARBON DIOXIDE 27 mmol/L (21-32); CHLORIDE 102 mmol/L (98-107); EST GLOM FILT AFRICAN AMERICAN > 60 ml/min; GLUCOSE 112 mg/dL (65-99); POTASSIUM 3.8 mmol/L (3.5-5.1); SGOT/AST 26 IU/L (3-35); SGPT/ALT 31 U/L (12-78); SODIUM 137 mmol/L (136-145); TOTAL PROTEIN 6.7 gm/dL (6.4-8.2)
[2016-12-19 17:35] LABS: INTERNATIONAL NORM RATIO 2.6 (2.0-3.5)
[2016-12-19 20:23] VITALS: BP 120/78
== END 2016-12-19 20:47 | disposition other institution (70) ==
LOC: ED 16:05
PROVIDERS: Emergency Medicine
DX: K92.2 Gastrointestinal hemorrhage, unspecified (principal); R10.32 Left lower quadrant pain; I48.91 Unspecified atrial fibrillation; I25.10 Atherosclerotic heart disease of native coronary artery without angina pectoris; E78.5 Hyperlipidemia, unspecified; D64.9 Anemia, unspecified; M19.90 Unspecified osteoarthritis, unspecified site; Z86.73 Personal history of transient ischemic attack (TIA), and cerebral infarction without residual deficits; Z90.49 Acquired absence of other specified parts of digestive tract; Z95.5 Presence of coronary angioplasty implant and graft; Z79.82 Long term (current) use of aspirin; Z79.01 Long term (current) use of anticoagulants; Z88.0 Allergy status to penicillin

== ENCOUNTER → 2017-06-09 | Outpatient (CLI) | payer MEDICARE | END | disposition home or self-care (01) | LOC: RAD 11:13 | DX: M25.511 Pain in right shoulder (principal) ==

== ENCOUNTER 2017-08-28 17:36 | Inpatient (IN) | payer MEDICARE ==
[~2017-08-28] VITALS: Ht 185.4 cm; Wt 106.4 kg
[2017-08-28] VITALS (9 sets, daily range): BP systolic 121–159; BP diastolic 64–83
--- NOTE | ~2017-08-28 | O ---
[place], [place] OPERATIVE NOTE NAME: JOHAN SETH UNIT #: [id number] ROOM: 521 DOCTOR: CHARLES LINDERZULEMA BIRTHDATE: [birth year] DOS: 08/29/2017 INDICATIONS: The patient has presented with lower GI bleed. The patient has been on aspirin and Coumadin. The patient continues to have bleeding after 3 units of packed cells and fresh frozen plasma and vitamin K. PROCEDURE: Today's procedure part of investigation is panendoscopy and colonoscopy. PREMEDICATION: Versed and Diprivan. SCOPE: Olympus forward-viewing gastroscope Q10 video. REPORT: After putting the patient in left lateral position and application of lubricant to the scope, the scope was introduced; thereafter, under direct visualization, advanced through the length of esophagus without difficulty. Gastric pouch was entered. Duodenal bulb, second and third part within normal limits. Mild gastritis seen. The patient extubated, tolerated procedure well. IMPRESSION: Mild gastritis. No GI bleed activity. No upper GI tract. We are going to proceed with colonoscopy. GASTROENDOSCOPIC REPORT The patient has presented with GI bleed on Sandostatin and status post transfusions, undergoing investigation. PROCEDURE: Today's procedure part of investigation is colonoscopy. PREMEDICATION: Versed and Diprivan. SCOPE: Olympus folding colonoscope 10L video. REPORT: After putting the patient in left lateral position and application of lubricant to the scope, the scope was introduced. Thereafter, under direct visualization, advanced through the length of colon with difficulty. Colon is full of fresh and old blood, 100 cm of the scope was introduced. No point of the colon can be observed clearly due to the presence of blood and debris. The patient extubated, tolerated procedure well. IMPRESSION: Lower gastrointestinal bleed, source unknown. PLAN AND DISCUSSION: I am going to organize a bleeding scan in the morning. I am going to give him one 6-pack units of platelets also, in case there is thrombocytopathy secondary to aspirin on board as well fresh frozen plasma and vitamin K has been already given, reassessment of CBC and blood counts in the morning and hopefully if spontaneously the bleeding is going to respond stopped, otherwise, we are investigating with a bleeding scan in a.m. anyways. We are going to keep him n.p.o. otherwise clinical reassessment. [place], [place] OPERATIVE NOTE NAME: JOHAN SETH UNIT #: [id number] ROOM: 521 DOCTOR: CHARLES LINDER,ZULEMA BIRTHDATE: [birth year] ZULEMA SOTO MD CM:OPRECORD:OPERATIVE NOTE 184 20 ZULEMA SOTO MD 08/29/171919 interface
--- NOTE | ~2017-08-28 | CON ---
[place], [place] REPORT OF CONSULTATION NAME: JOHAN SETH UNIT #: [id number] ROOM: 521 DOCTOR: ZULEMA SOTO MD BIRTHDATE: [birth year] DOS: 08/29/2017 HISTORY OF PRESENT ILLNESS: The patient is a 72-year-old, who has presented with active GI bleed. He has been transfused and he continues to have bloody BM. His latest H and H is 9 and 28 after 3 units of packed cell transfusion. His admitting H and H was 13.5 and 39. The patient has been on aspirin and Coumadin, both on hold. His platelet count is 252. Urinalysis is unremarkable. INR was 3.6, PT of 41 and PTT of 41. He received fresh frozen plasma and vitamin K and his latest H and H today in the morning was 1.9 and PT/PTT of 21 and 32. His troponin was negative. His comprehensive metabolic panel balanced, phosphorus and magnesium within normal limit. Liver function test normal. Tricyclic 158. PAST MEDICAL HISTORY: Associated with atrial fibrillation, diverticulosis, ankylosing spondylitis, osteoarthritis, hypertension, hypercoagulable state history. PAST SURGICAL HISTORY: Colostomy and reversal due to past bleeding, cholecystectomy. SOCIAL HISTORY: Social alcohol consumer, nonsmoker. FAMILY HISTORY: Noncontributory. ALLERGIES: PENICILLIN. MEDICATIONS: List has been reviewed including ferrous sulfate, aspirin, omega, fish oil and warfarin. All are going to be placed on hold for the next few days. REVIEW OF SYSTEMS: HEENT: Denies double vision, blurred vision. RESPIRATORY: Denies acute shortness of breath. CARDIOVASCULAR: Denies acute chest pain. DIGESTIVE SYSTEM: Melanotic stool and hematochezia. PHYSICAL EXAMINATION: VITAL SIGNS: Stable. HEENT: Head is normocephalic, nontraumatic. Eyes, pupils round and reactive. Sclerae nonicteric. Conjunctivae pink. Nose nonobstructed, nondeviated. Mouth free of aphthae ulcer or thrush. NECK: Supple. No thyromegaly. No cervical lymphadenopathy. CHEST: Symmetric anatomy, equal expansion. No wheeze, no rhonchi. HEART: No gallop. No murmur. ABDOMEN: Soft. No hepato-organomegaly. Bowel sounds present. EXTREMITIES: No cyanosis. 1+ pedal edema noticed. NEUROLOGIC: Alert and oriented to time, place, person. IMPRESSION: Gastrointestinal bleed, on aspirin; Coumadin; and fish oil. [place], [place] REPORT OF CONSULTATION NAME: JOHAN SETH UNIT #: [id number] ROOM: 521 DOCTOR: CHARLES LINDER,ZULEMA BIRTHDATE: [birth year] (The report ends at this point). ADDENDUM IMPRESSION: Gastrointestinal bleed. The patient on aspirin, Coumadin, and fish oil. We are going to have all 3 on hold. Reversal of anticoagulation has been done. INR has been partially corrected. The patient continued with GI bleed despite 3 units of packed cells and 2 units of fresh frozen plasma and vitamin K and therefore warrants an urgent endoscopy of upper and lower GI tract. Arrangement has been made to the operating room. His labs and records have been reviewed. His CT scan shows wall thickening descending colon, suspected to be secondary to colitis. Otherwise, his initial H and H was 13 and 39. His last H and H post-transfusion of 3 units, 9, 8 and 28 and continues with active bleeding. Labs reviewed, records reviewed. Consult dictated. ZULEMA SOTO MD CM:CONSTR:REPORT OF CONSULTATION 1825 08/30/17 8187 interface
--- NOTE | ~2017-08-28 | CON ---
[place], [place] REPORT OF CONSULTATION NAME: JOHAN SETH UNIT #: [id number] ROOM: 521 DOCTOR: CHARLES LINDERZULEMA BIRTHDATE: [birth year] DOS: 08/31/2017 HISTORY OF PRESENT ILLNESS: The patient has presented with chief complaint of GI bleed. The patient endoscopically was assessed, was found to have gastritis and lower GI tract and colonoscopy was performed. Colon was full of fresh blood. Very difficult to assess. The patient was sent for a bleeding scan. Of course, this was done a day and half later after the order was given and obviously the patient was on Sandostatin prior to that and the bleeding had stopped and did not show leaking site. The patient has been status post multi-transfusion, the last H and H 10 and 29. His basic metabolic panel was potassium of 3.1. Potassium is going to be supplemented. PAST MEDICAL HISTORY: Hypercoagulable state, hypertension, TIA, coronary artery disease, atrial fibrillation, diverticulosis, which could be the cause of his lower GI bleed as diverticular bleed. REVIEW OF SYSTEMS: No hematemesis, no hematochezia anymore. He has not had bowel movements for past 2 days, signifying the bleeding has stopped. RESPIRATORY: No shortness of breath. CARDIOVASCULAR: No chest pain. DIGESTIVE SYSTEM: As above. Not nauseated. PHYSICAL EXAMINATION: GENERAL: Comfortable. VITAL SIGNS: Stable. HEENT: Head normocephalic, nontraumatic. Mouth and buccal mucosa benign. NECK: Supple, no thyromegaly, no cervical lymphadenopathy. CHEST: Symmetric anatomy, equal expansion. No wheeze, no rhonchi. HEART: Normal sinus rhythm, no gallop, no murmur. ABDOMEN: Soft. No hepato-organomegaly. Bowel sounds present, not hyperactive. EXTREMITIES: Benign. NEUROLOGIC: Alert and oriented. IMPRESSION: Lower gastrointestinal bleed, most likely diverticular bleed, status post Sandostatin therapy. PLAN AND DISCUSSION: We are going to proceed with feeding the patient and evaluating H and H tomorrow. Potassium has already been supplemented. Workup in progress. Sandostatin is going to be tapered down to 25 mcg per hour from 50 mcg and clinical reassessment. [place], [place] REPORT OF CONSULTATION NAME: JOHAN SETH UNIT #: [id number] ROOM: 521 DOCTOR: CHARLES LINDER,ZULEMA BIRTHDATE: [birth year] ZULEMA SOTO MD CM:CONSTR:REPORT OF CONSULTATION 1905 09/01/17 0330 interface
--- NOTE | ~2017-08-28 | CON ---
[place], [place] REPORT OF CONSULTATION NAME: JOHAN SETH UNIT #: [id number] ROOM: 521 DOCTOR: CHARLES LINDER,ZULEMA BIRTHDATE: [birth year] DOS: 08/29/2017 ADDENDUM IMPRESSION: Gastrointestinal bleed. The patient on aspirin, Coumadin, and fish oil. We are going to have all 3 on hold. Reversal of anticoagulation has been done. INR has been partially corrected. The patient continued with GI bleed despite 3 units of packed cells and 2 units of fresh frozen plasma and vitamin K and therefore warrants an urgent endoscopy of upper and lower GI tract. Arrangement has been made to the operating room. His labs and records have been reviewed. His CT scan shows wall thickening descending colon, suspected to be secondary to colitis. Otherwise, his initial H and H was 13 and 39. His last H and H post-transfusion of 3 units, 9, 8 and 28 and continues with active bleeding. Labs reviewed, records reviewed. Consult dictated. The patient has presented to Emergency Room with GI bleed. PAST MEDICAL HISTORY: Atrial fibrillation, coronary artery disease and stent, diverticulosis, hypercoagulable state, hypertension, TIA. PAST SURGICAL HISTORY: Cholecystectomy, colostomy reversal. SOCIAL HISTORY: Alcohol consumer, nonsmoker. FAMILY HISTORY: Noncontributory. ALLERGIES: PENICILLIN. MEDICATIONS: List has been reviewed. REVIEW OF SYSTEMS: No hematemesis, no shortness of breath, no chest pain. DIGESTIVE SYSTEM: Hematochezia. PHYSICAL EXAMINATION: VITAL SIGNS: Stable. HEENT: Benign. NECK: Supple. LUNGS: Vesicular. No wheeze, no rhonchi. HEART: Normal sinus rhythm, no gallop, no murmur. ABDOMEN: Soft. No hepato-organomegaly. Bowel sounds present. EXTREMITIES: No cyanosis, pedal edema 1+. NEUROLOGIC: Alert, oriented to time, place, and person. IMPRESSION AND PLAN: 1. Gastrointestinal bleed, source unknown. Endoscopy of upper and lower tract urgently is going to be organized 2. Atrial fibrillation history and warfarin and coronary artery stents ____. TRANSCRIBE THIS AGAIN IN CASE THE FIRST PART DID NOT GO THROUGH IN THE FIRST DICTATION [place], [place] REPORT OF CONSULTATION NAME: JOHAN SETH UNIT #: [id number] ROOM: 521 DOCTOR: ZULEMA SOTO MD BIRTHDATE: [birth year] ZULEMA SOTO MD CM:CONSTR:REPORT OF CONSULTATION 1829 08/30/17 1739 interface
[2017-08-28 18:07] LABS: BILIRUBIN NEGATIVE (NEGATIVE); BLOOD TRACE-INTACT (NEGATIVE); CLARITY CLEAR (CLEAR); COLOR YELLOW (YELLOW); GLUCOSE NEGATIVE (NEGATIVE); KETONE NEGATIVE (NEGATIVE); LEUKO ESTERASE NEGATIVE (NEGATIVE); NITRITE NEGATIVE (NEGATIVE); PH 5.5 (5.0-9.0); SPECIFIC GRAVITY <= 1.005 (1.005-1.030); UROBILINOGEN 0.2 E.U./dl (0.2-1.0)
[2017-08-28 18:08] LABS: BASO % 0.2 % (0.0-1.0); EOS # 0.1 10*3/uL (0.0-0.4); EOS % 1.4 % (1.0-4.0); HEMATOCRIT 39.5 % (42.0-52.0); HEMOGLOBIN 13.5 g/dl (14.0-18.0); LYMPH # 3.2 10*3/uL (1.3-4.4); LYMPH % 32.9 % (27.0-41.0); MEAN CELL VOLUME 87.4 fl (80.0-94.0); MEAN CORPUSCULAR HGB 29.9 pg (27.0-31.0); MEAN CORPUSCULAR HGB CONC 34.2 g/dl (33.0-37.0); MEAN PLATELET VOLUME 10.3 fl (9.6-12.3); MONO # 0.7 10*3/uL (0.1-1.0); MONO % 6.8 % (3.0-9.0); NEUT # 5.6 10*3/uL (2.3-7.9); NEUT % 58.1 % (47.0-73.0); PLATELET COUNT AUTOMATED 252 10*3/uL (130-400); RED BLOOD COUNT 4.52 10*6/uL (4.50-5.90); RED CELL DISTRI WIDTH 14.5 % (0-14.5); WHITE BLOOD COUNT 9.6 10*3/uL (4.8-10.8)
[2017-08-28 18:12] LABS: BACTERIA TRACE; EPITHELIAL CELLS 0-2; WBC 0-2 wbc/hpf (0-5)
[2017-08-28 18:19] LABS: ACT PARTIAL THROMBO TIME 41.9 SECONDS (20.8-31.5); INTERNATIONAL NORM RATIO 3.6 (2.0-3.5)
[2017-08-28 18:26] LABS: ALBUMIN 3.7 gm/dl (3.1-4.5); ALKALINE PHOSPHATASE 88 U/L (45-117); BUN 18 mg/dl (7-24); CHLORIDE 98 mmol/L (98-107); CREATININE 1.14 mg/dL (0.70-1.30); POTASSIUM 3.6 mmol/L (3.5-5.1); SGOT/AST 29 IU/L (3-35); SGPT/ALT 40 U/L (12-78); SODIUM 139 mmol/L (136-145); TOTAL PROTEIN 7.8 gm/dL (6.4-8.2)
[2017-08-28 18:27] LABS: TROPONIN I < 0.015 ng/ml (<0.045)
[2017-08-28 21:23] LABS: BASO % 0.4 % (0.0-1.0); EOS # 0.1 10*3/uL (0.0-0.4); EOS % 1.7 % (1.0-4.0); HEMATOCRIT 32.1 % (42.0-52.0); HEMOGLOBIN 10.9 g/dl (14.0-18.0); LYMPH # 2.8 10*3/uL (1.3-4.4); LYMPH % 33.9 % (27.0-41.0); MEAN CELL VOLUME 87.9 fl (80.0-94.0); MEAN CORPUSCULAR HGB 29.9 pg (27.0-31.0); MEAN PLATELET VOLUME 10.3 fl (9.6-12.3); MONO # 0.7 10*3/uL (0.1-1.0); MONO % 8.2 % (3.0-9.0); NEUT # 4.5 10*3/uL (2.3-7.9); NEUT % 55.3 % (47.0-73.0); PLATELET COUNT AUTOMATED 221 10*3/uL (130-400); RED BLOOD COUNT 3.65 10*6/uL (4.50-5.90); RED CELL DISTRI WIDTH 14.6 % (0-14.5); WHITE BLOOD COUNT 8.1 10*3/uL (4.8-10.8)
[2017-08-29] VITALS (24 sets, daily range): BP systolic 114–152; BP diastolic 62–86
[2017-08-29 00:05] LABS: BASO % 0.2 % (0.0-1.0); EOS # 0.1 10*3/uL (0.0-0.4); EOS % 0.8 % (1.0-4.0); HEMATOCRIT 29.1 % (42.0-52.0); HEMOGLOBIN 9.9 g/dl (14.0-18.0); LYMPH % 17.7 % (27.0-41.0); MEAN CELL VOLUME 88.7 fl (80.0-94.0); MEAN CORPUSCULAR HGB 30.2 pg (27.0-31.0); MEAN PLATELET VOLUME 10.6 fl (9.6-12.3); MONO # 0.5 10*3/uL (0.1-1.0); MONO % 4.7 % (3.0-9.0); NEUT # 8.6 10*3/uL (2.3-7.9); PLATELET COUNT AUTOMATED 209 10*3/uL (130-400); RED BLOOD COUNT 3.28 10*6/uL (4.50-5.90); RED CELL DISTRI WIDTH 14.6 % (0-14.5); WHITE BLOOD COUNT 11.4 10*3/uL (4.8-10.8)
[2017-08-29 06:40] LABS: BASO % 0.3 % (0.0-1.0); EOS % 0.2 % (1.0-4.0); HEMATOCRIT 29.7 % (42.0-52.0); HEMOGLOBIN 10.4 g/dl (14.0-18.0); LYMPH # 1.9 10*3/uL (1.3-4.4); LYMPH % 17.2 % (27.0-41.0); MEAN CELL VOLUME 87.6 fl (80.0-94.0); MEAN CORPUSCULAR HGB 30.7 pg (27.0-31.0); MEAN PLATELET VOLUME 10.3 fl (9.6-12.3); MONO # 0.5 10*3/uL (0.1-1.0); MONO % 4.7 % (3.0-9.0); NEUT # 8.3 10*3/uL (2.3-7.9); NEUT % 77.1 % (47.0-73.0); PLATELET COUNT AUTOMATED 192 10*3/uL (130-400); RED BLOOD COUNT 3.39 10*6/uL (4.50-5.90); RED CELL DISTRI WIDTH 14.4 % (0-14.5); WHITE BLOOD COUNT 10.8 10*3/uL (4.8-10.8)
[2017-08-29 06:51] LABS: ACT PARTIAL THROMBO TIME 32.3 SECONDS (20.8-31.5); INTERNATIONAL NORM RATIO 1.9 (2.0-3.5)
[2017-08-29 07:11] LABS: ALBUMIN 2.8 gm/dl (3.1-4.5); ALKALINE PHOSPHATASE 58 U/L (45-117); BUN 19 mg/dl (7-24); CHLORIDE 106 mmol/L (98-107); CHOLESTEROL 129 mg/dL (<200); CREATININE 1.03 mg/dL (0.70-1.30); FREE T4 0.77 ng/dl (0.76-1.46); HDL CHOLESTEROL 21 mg/dl (40-60); LDL CHOLESTEROL 76 mg/dL (9-159); PHOSPHOROUS 2.8 mg/dL (2.5-4.9); POTASSIUM 3.8 mmol/L (3.5-5.1); SGOT/AST 22 IU/L (3-35); SGPT/ALT 27 U/L (12-78); SODIUM 142 mmol/L (136-145); TOTAL PROTEIN 5.5 gm/dL (6.4-8.2); TRIGLYCERIDES 158 mg/dl (<150); VLDL CHOLESTEROL 32 mg/dL (6-40)
[2017-08-29 08:08] LABS: VITAMIN D, 25-HYDROXY 23.8 ng/mL (30-100)
[2017-08-29 11:58] LABS: HEMOGLOBIN 9.8 g/dl (14.0-18.0)
[2017-08-30] VITALS (11 sets, daily range): BP systolic 124–164; BP diastolic 68–85
[2017-08-30 07:13] LABS: BASO % 0.3 % (0.0-1.0); EOS # 0.1 10*3/uL (0.0-0.4); EOS % 2.1 % (1.0-4.0); HEMATOCRIT 22.4 % (42.0-52.0); HEMOGLOBIN 7.9 g/dl (14.0-18.0); LYMPH # 2.7 10*3/uL (1.3-4.4); LYMPH % 39.1 % (27.0-41.0); MEAN CELL VOLUME 89.6 fl (80.0-94.0); MEAN CORPUSCULAR HGB 31.6 pg (27.0-31.0); MEAN CORPUSCULAR HGB CONC 35.3 g/dl (33.0-37.0); MEAN PLATELET VOLUME 10.4 fl (9.6-12.3); MONO # 0.6 10*3/uL (0.1-1.0); MONO % 8.1 % (3.0-9.0); NEUT # 3.4 10*3/uL (2.3-7.9); PLATELET COUNT AUTOMATED 206 10*3/uL (130-400); RED CELL DISTRI WIDTH 15.3 % (0-14.5); WHITE BLOOD COUNT 6.8 10*3/uL (4.8-10.8)
[2017-08-30 07:29] LABS: ALBUMIN 2.9 gm/dl (3.1-4.5); BUN 19 mg/dl (7-24); CHLORIDE 107 mmol/L (98-107); CREATININE 1.19 mg/dL (0.70-1.30); INTERNATIONAL NORM RATIO 1.2 (2.0-3.5); POTASSIUM 3.3 mmol/L (3.5-5.1); SGOT/AST 31 IU/L (3-35); SODIUM 143 mmol/L (136-145); TOTAL PROTEIN 5.8 gm/dL (6.4-8.2)
[2017-08-30 07:30] LABS: ALKALINE PHOSPHATASE 58 U/L (45-117); SGPT/ALT 37 U/L (12-78)
[2017-08-31] VITALS: BP 152/82
[2017-08-31 07:52] LABS: BASO % 0.4 % (0.0-1.0); EOS # 0.2 10*3/uL (0.0-0.4); EOS % 2.7 % (1.0-4.0); LYMPH # 2.6 10*3/uL (1.3-4.4); LYMPH % 34.6 % (27.0-41.0); MEAN CELL VOLUME 89.8 fl (80.0-94.0); MEAN CORPUSCULAR HGB 30.8 pg (27.0-31.0); MEAN CORPUSCULAR HGB CONC 34.2 g/dl (33.0-37.0); MEAN PLATELET VOLUME 9.9 fl (9.6-12.3); MONO # 0.6 10*3/uL (0.1-1.0); MONO % 8.3 % (3.0-9.0); NEUT % 52.7 % (47.0-73.0); NUCLEATED RED BLOOD CELL 0.5 % (0.0-0.0); PLATELET COUNT AUTOMATED 241 10*3/uL (130-400); RED BLOOD COUNT 3.25 10*6/uL (4.50-5.90); RED CELL DISTRI WIDTH 15.6 % (0-14.5); WHITE BLOOD COUNT 7.5 10*3/uL (4.8-10.8)
[2017-08-31 08:00] VITALS: BP 150/64
[2017-08-31 08:02] LABS: HEMATOCRIT 29.2 % (42.0-52.0)
[2017-08-31 08:18] LABS: BUN 10 mg/dl (7-24); CHLORIDE 103 mmol/L (98-107); CREATININE 1.12 mg/dL (0.70-1.30); POTASSIUM 3.1 mmol/L (3.5-5.1); SODIUM 141 mmol/L (136-145)
[2017-08-31 12:00] VITALS: BP 156/82
[2017-08-31 16:00] VITALS: BP 129/70
[2017-08-31 20:00] VITALS: BP 150/74
[2017-09-01] VITALS: BP 141/84
[2017-09-01 07:04] LABS: BASO % 0.3 % (0.0-1.0); EOS # 0.1 10*3/uL (0.0-0.4); EOS % 2.2 % (1.0-4.0); HEMATOCRIT 27.3 % (42.0-52.0); HEMOGLOBIN 9.4 g/dl (14.0-18.0); LYMPH # 2.1 10*3/uL (1.3-4.4); LYMPH % 32.3 % (27.0-41.0); MEAN CELL VOLUME 89.5 fl (80.0-94.0); MEAN CORPUSCULAR HGB 30.8 pg (27.0-31.0); MEAN CORPUSCULAR HGB CONC 34.4 g/dl (33.0-37.0); MEAN PLATELET VOLUME 10.1 fl (9.6-12.3); MONO # 0.5 10*3/uL (0.1-1.0); NEUT # 3.6 10*3/uL (2.3-7.9); NEUT % 56.3 % (47.0-73.0); NUCLEATED RED BLOOD CELL 0.5 % (0.0-0.0); PLATELET COUNT AUTOMATED 225 10*3/uL (130-400); RED BLOOD COUNT 3.05 10*6/uL (4.50-5.90); RED CELL DISTRI WIDTH 15.4 % (0-14.5); WHITE BLOOD COUNT 6.4 10*3/uL (4.8-10.8)
[2017-09-01 07:20] LABS: ALBUMIN 3.4 gm/dl (3.1-4.5); ALKALINE PHOSPHATASE 63 U/L (45-117); BUN 11 mg/dl (7-24); CHLORIDE 104 mmol/L (98-107); CREATININE 1.14 mg/dL (0.70-1.30); SGOT/AST 37 IU/L (3-35); SGPT/ALT 42 U/L (12-78); SODIUM 141 mmol/L (136-145); TOTAL PROTEIN 6.7 gm/dL (6.4-8.2)
[2017-09-01 08:00] VITALS: BP 154/78
[2017-09-01 12:00] VITALS: BP 152/70
[2017-09-01 16:00] VITALS: BP 146/78
[2017-09-01 16:24] LABS: HEMATOCRIT 27.7 % (42.0-52.0); HEMOGLOBIN 9.5 g/dl (14.0-18.0)
[2017-09-01 20:00] VITALS: BP 129/57
[2017-09-02] VITALS: BP 123/71
[2017-09-02 06:49] LABS: BASO % 0.3 % (0.0-1.0); EOS # 0.2 10*3/uL (0.0-0.4); EOS % 2.7 % (1.0-4.0); HEMOGLOBIN 9.9 g/dl (14.0-18.0); LYMPH # 2.2 10*3/uL (1.3-4.4); MEAN CELL VOLUME 90.9 fl (80.0-94.0); MEAN CORPUSCULAR HGB CONC 34.1 g/dl (33.0-37.0); MONO # 0.5 10*3/uL (0.1-1.0); MONO % 7.5 % (3.0-9.0); NEUT # 3.5 10*3/uL (2.3-7.9); PLATELET COUNT AUTOMATED 246 10*3/uL (130-400); RED BLOOD COUNT 3.19 10*6/uL (4.50-5.90); RED CELL DISTRI WIDTH 15.8 % (0-14.5); WHITE BLOOD COUNT 6.4 10*3/uL (4.8-10.8)
[2017-09-02 07:12] LABS: BUN 13 mg/dl (7-24); CHLORIDE 104 mmol/L (98-107); CREATININE 1.09 mg/dL (0.70-1.30); POTASSIUM 3.3 mmol/L (3.5-5.1); SODIUM 140 mmol/L (136-145)
[2017-09-02 08:00] VITALS: BP 132/76
[2017-09-02 12:00] VITALS: BP 130/72
[2017-09-02 16:00] VITALS: BP 107/53
[2017-09-02 20:00] VITALS: BP 141/71
[2017-09-03] VITALS: BP 107/59
[2017-09-03 07:22] LABS: BASO % 0.4 % (0.0-1.0); EOS # 0.2 10*3/uL (0.0-0.4); EOS % 2.5 % (1.0-4.0); HEMATOCRIT 28.3 % (42.0-52.0); HEMOGLOBIN 9.5 g/dl (14.0-18.0); LYMPH # 2.2 10*3/uL (1.3-4.4); LYMPH % 29.9 % (27.0-41.0); MEAN CORPUSCULAR HGB 30.5 pg (27.0-31.0); MEAN CORPUSCULAR HGB CONC 33.6 g/dl (33.0-37.0); MEAN PLATELET VOLUME 10.2 fl (9.6-12.3); MONO # 0.5 10*3/uL (0.1-1.0); MONO % 7.3 % (3.0-9.0); NEUT # 4.3 10*3/uL (2.3-7.9); NEUT % 59.2 % (47.0-73.0); PLATELET COUNT AUTOMATED 256 10*3/uL (130-400); RED BLOOD COUNT 3.11 10*6/uL (4.50-5.90); RED CELL DISTRI WIDTH 16.2 % (0-14.5); WHITE BLOOD COUNT 7.3 10*3/uL (4.8-10.8)
[2017-09-03 07:51] LABS: BUN 17 mg/dl (7-24); CHLORIDE 105 mmol/L (98-107); CREATININE 1.12 mg/dL (0.70-1.30); POTASSIUM 3.5 mmol/L (3.5-5.1); SODIUM 142 mmol/L (136-145)
[2017-09-03 08:00] VITALS: BP 132/68
[2017-09-03 12:00] VITALS: BP 120/68
[2017-09-03 16:00] VITALS: BP 135/73
[2017-09-03] MEDS ORDERED: COUMADIN7.5 M1 PO (16:37)
[2017-09-03] MEDS ORDERED: PROTONIX40 MG PO (16:55)
== END 2017-09-03 18:26 | disposition home or self-care (01) | DRG 377 ==
LOC: ED 17:36 → EDHOLD 18:38 → 5E 18:38
PROVIDERS: Emergency Medicine; Hospitalist; Internal Medicine; Internal Medicine Gastroenterology; Internal Medicine Hospice and Palliative Medicine; Nurse Practitioner Family
PROC: 0DJD8ZZ Inspection of Lower Intestinal Tract, Via Natural or Artificial Opening Endoscopic (ICD-10-PCS; principal; 2017-08-29)
PROC: 30233R1 Transfusion of Nonautologous Platelets into Peripheral Vein, Percutaneous Approach (ICD-10-PCS; principal; 2017-08-29)
PROC: 0DJ08ZZ Inspection of Upper Intestinal Tract, Via Natural or Artificial Opening Endoscopic (ICD-10-PCS; principal; 2017-08-29)
PROC: 30233N1 Transfusion of Nonautologous Red Blood Cells into Peripheral Vein, Percutaneous Approach (ICD-10-PCS; principal; 2017-08-29)
PROC: 5A09357 Assistance with Respiratory Ventilation, Less than 24 Consecutive Hours, Continuous Positive Airway Pressure (ICD-10-PCS; 2017-09-01)
PROC: 5A09357 Assistance with Respiratory Ventilation, Less than 24 Consecutive Hours, Continuous Positive Airway Pressure (ICD-10-PCS; 2017-09-03)
DX: K29.71 Gastritis, unspecified, with bleeding (principal); E43 Unspecified severe protein-calorie malnutrition; J90 Pleural effusion, not elsewhere classified; D68.59 Other primary thrombophilia; D68.9 Coagulation defect, unspecified; I48.2 Chronic atrial fibrillation; D62 Acute posthemorrhagic anemia; K57.31 Diverticulosis of large intestine without perforation or abscess with bleeding; M45.9 Ankylosing spondylitis of unspecified sites in spine; K52.9 Noninfective gastroenteritis and colitis, unspecified; M19.011 Primary osteoarthritis, right shoulder; I25.10 Atherosclerotic heart disease of native coronary artery without angina pectoris; E78.5 Hyperlipidemia, unspecified; I10 Essential (primary) hypertension; R73.9 Hyperglycemia, unspecified; R31.29 Other microscopic hematuria; E80.6 Other disorders of bilirubin metabolism; E55.9 Vitamin D deficiency, unspecified; T45.515A Adverse effect of anticoagulants, initial encounter; D72.810 Lymphocytopenia; R00.1 Bradycardia, unspecified; Z88.0 Allergy status to penicillin; Z79.899 Other long term (current) drug therapy; Z79.82 Long term (current) use of aspirin; Z79.01 Long term (current) use of anticoagulants; Z86.73 Personal history of transient ischemic attack (TIA), and cerebral infarction without residual deficits; Z90.49 Acquired absence of other specified parts of digestive tract; Z98.61 Coronary angioplasty status; Z93.3 Colostomy status; Z82.49 Family history of ischemic heart disease and other diseases of the circulatory system; Z83.3 Family history of diabetes mellitus; Z83.6 Family history of other diseases of the respiratory system; Y92.89 Other specified places as the place of occurrence of the external cause; Z68.30 Body mass index [BMI] 30.0-30.9, adult

== ENCOUNTER → 2017-09-06 | Outpatient (CLI) | payer MEDICARE ==
[~2017-09-06] MED LIST changes: +PROTONIX40 MG PO
[2017-09-06 11:09] LABS: INTERNATIONAL NORM RATIO 1.1 (2.0-3.5)
== END | disposition home or self-care (01) ==
LOC: LAB 09:56
PROVIDERS: Internal Medicine Hospice and Palliative Medicine
DX: K92.2 Gastrointestinal hemorrhage, unspecified (principal); R79.1 Abnormal coagulation profile

== ENCOUNTER → 2017-09-08 | Day surgery (SDC) | payer MEDICARE ==
[~2017-09-08] VITALS: Ht 185.4 cm; Wt 108.9 kg
--- NOTE | ~2017-09-08 | O ---
[place], [place] OPERATIVE NOTE NAME: JOHAN SETH UNIT #: [id number] ROOM: DOCTOR: ZULEMA SOTO MD BIRTHDATE: [birth year] DOS: 09/08/2017 GASTROENDOSCOPIC REPORT HISTORY OF PRESENT ILLNESS: A 72-year-old patient who has presented with chief complaint of history of colonic bleed. The patient has been on aspirin and Coumadin, both have been placed on hold, undergoing investigation. ALLERGIES: PENICILLIN. PAST MEDICAL HISTORY: Associated hypertension, diabetes mellitus, hypercholesterolemia, and previous GI bleed. PAST SURGICAL HISTORY: Cardiac stents, cholecystectomy, partial sigmoid colectomy resection. PROCEDURE: Today's procedure part of investigation is colonoscopy plus snare polypectomy. PREMEDICATION: Versed and Diprivan. SCOPE: Olympus folding colonoscope 10L video. REPORT: After putting the patient in left lateral position and application of lubricant to the scope, the scope was introduced. Thereafter, under direct visualization, I advanced through the length of colon without difficulty. Base of the cecum explored, appendiceal orifice identified, and ileocecal valve was defined. Severe diverticulosis was identified. Scope was withdrawn back to the sigmoid colon ____ site of anastomosis was inspected. A polypoid lesion in this area with a snare was polypectomized. Sample recovered. Site was coagulated. The patient extubated and tolerated procedure well. IMPRESSION: Diverticulosis, colonic polyp, status post snare polypectomy. PLAN AND DISCUSSION: Withholding aspirin and Plavix for another 3 days and high fiber diet. Most likely the source of his GI bleed has been secondary to diverticular bleed. This is retrospectively addressed. As identified above, follow up as outpatient in GI clinic in 2 weeks. [place], [place] OPERATIVE NOTE NAME: JOHAN SETH UNIT #: [id number] ROOM: DOCTOR: ZULEMA SOTO MD BIRTHDATE: [birth year] ZULEMA SOTO MD CM:OPRECORD:OPERATIVE NOTE [id number] ZULEMA SOTO MD 09/08/17 7331 interface
[2017-09-08 11:15] VITALS: BP 132/71
[2017-09-08 12:58] VITALS: BP 116/68
[2017-09-08 13:13] VITALS: BP 120/63
[2017-09-08 13:26] VITALS: BP 135/77
== END ==
LOC: SDC 09-07 12:30
DX: K62.1 Rectal polyp (principal); K57.30 Diverticulosis of large intestine without perforation or abscess without bleeding; I10 Essential (primary) hypertension; I25.10 Atherosclerotic heart disease of native coronary artery without angina pectoris; M19.90 Unspecified osteoarthritis, unspecified site; E78.00 Pure hypercholesterolemia, unspecified; I48.0 Paroxysmal atrial fibrillation; E11.9 Type 2 diabetes mellitus without complications; Z88.0 Allergy status to penicillin; Z90.49 Acquired absence of other specified parts of digestive tract; F17.200 Nicotine dependence, unspecified, uncomplicated; Z95.5 Presence of coronary angioplasty implant and graft; Z79.899 Other long term (current) drug therapy; Z82.49 Family history of ischemic heart disease and other diseases of the circulatory system

== ENCOUNTER → 2017-10-08 | Day surgery (SDC) | payer MEDICARE ==
[~2017-10-08] VITALS: Ht 185.4 cm; Wt 108.9 kg
--- NOTE | ~2017-10-08 | O ---
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 The patient is status post reversal colostomy for previous diverticular bleed with segmental resection in the past. ALLERGIES: PENICILLIN. SOCIAL HISTORY: Past records have been reviewed. PROCEDURE: Today's procedure part of investigation is colonoscopy plus biopsy. PREMEDICATION: Versed and Diprivan. SCOPE: Olympus forward-viewing colonoscope 10L video. REPORT: After putting the patient in left lateral position and application of lubricant to the scope, the scope was introduced. Thereafter, under direct visualization advanced through the length of colon without difficulty. Anastomotic site at sigmoid colon was identified which is irritated and small ulceration of the site was seen. Therefore, biopsied. Rectal pouch was targeted and carefully scanned and multiple biopsy from proximal rectal pouch and distal rectal pouch was obtained. Attention was paid to assure that if there is any irregularity in the pattern of the tissue that area was biopsied. No gross pathology identified. The patient extubated and tolerated the procedure well. IMPRESSION: Status post reversal colostomy with irritation of anastomotic site, status post biopsy, status post multiple rectal pouch biopsies then diverticulosis. PLAN AND DISCUSSION: Resumption of all orders and anticoagulants and clinical reassessment as an outpatient. Awaiting second set of biopsy results. Thank you very much. [place], [place] OPERATIVE NOTE NAME: JOHAN SETH UNIT #: [id number] ROOM: DOCTOR: ZULEMA SOTO MD BIRTHDATE: [birth year] ZULEMA SOTO MD CM:OPRECORD:OPERATIVE NOTE [id number] SHARA LEVIN MD 10/08/17 1440 interface
[2017-10-08 10:52] VITALS: BP 136/85
[2017-10-08 12:11] VITALS: BP 144/71
[2017-10-08 12:25] VITALS: BP 170/89
[2017-10-08 12:41] VITALS: BP 160/91
== END | disposition home or self-care (01) ==
LOC: SDC 10-07 10:15
DX: K62.1 Rectal polyp (principal); K57.30 Diverticulosis of large intestine without perforation or abscess without bleeding; F17.210 Nicotine dependence, cigarettes, uncomplicated; I10 Essential (primary) hypertension; I25.10 Atherosclerotic heart disease of native coronary artery without angina pectoris; M19.90 Unspecified osteoarthritis, unspecified site; Z86.73 Personal history of transient ischemic attack (TIA), and cerebral infarction without residual deficits; E78.00 Pure hypercholesterolemia, unspecified; I48.91 Unspecified atrial fibrillation; Z88.0 Allergy status to penicillin; Z98.890 Other specified postprocedural states; Z90.49 Acquired absence of other specified parts of digestive tract; Z82.49 Family history of ischemic heart disease and other diseases of the circulatory system

== ENCOUNTER → 2017-10-12 | Outpatient (CLI) | payer MEDICARE | END | disposition home or self-care (01) | LOC: LAB 09:37 | DX: C18.9 Malignant neoplasm of colon, unspecified (principal) ==

== ENCOUNTER → 2018-01-04 | Outpatient (CLI) | payer MEDICARE ==
[2018-01-04 10:58] LABS: INTERNATIONAL NORM RATIO 1.5 (2.0-3.5)
== END | disposition home or self-care (01) ==
LOC: LAB 10:00
PROVIDERS: Internal Medicine
DX: I48.0 Paroxysmal atrial fibrillation (principal)

== ENCOUNTER 2018-02-18 16:24 | Emergency (ER) | payer MEDICARE ==
[~2018-02-18] VITALS: Ht 185.4 cm; Wt 108.9 kg
[2018-02-18 16:28] VITALS: BP 153/76
[2018-02-18] MEDS ORDERED: CLINDAMYCIN HC300 MG PO (18:30)
[2018-02-19] MEDS ORDERED: Bactroban Oint22 GM T (10:36)
== END 2018-02-18 18:35 | disposition home or self-care (01) ==
LOC: ED 16:24
DX: S61.212A Laceration without foreign body of right middle finger without damage to nail, initial encounter (principal); I48.91 Unspecified atrial fibrillation; I25.10 Atherosclerotic heart disease of native coronary artery without angina pectoris; I10 Essential (primary) hypertension; M19.90 Unspecified osteoarthritis, unspecified site; Z88.0 Allergy status to penicillin; Z79.899 Other long term (current) drug therapy; Z79.82 Long term (current) use of aspirin; Z86.73 Personal history of transient ischemic attack (TIA), and cerebral infarction without residual deficits; W45.8XXA Other foreign body or object entering through skin, initial encounter; Y93.01 Activity, walking, marching and hiking; Y92.89 Other specified places as the place of occurrence of the external cause; Y99.8 Other external cause status

== ENCOUNTER 2018-02-19 10:19 | Emergency (ER) | payer MEDICARE ==
[~2018-02-19] VITALS: Ht 185.4 cm; Wt 108.9 kg
[~2018-02-19 10:19] MED LIST changes: +CLINDAMYCIN HC300 MG PO
[2018-02-19 10:22] VITALS: BP 107/77
[2018-02-19] MEDS ORDERED: Bactroban Oint22 GM T (10:36)
== END 2018-02-19 10:48 | disposition home or self-care (01) ==
LOC: ED 10:19
DX: T81.31XA Disruption of external operation (surgical) wound, not elsewhere classified, initial encounter (principal); F17.200 Nicotine dependence, unspecified, uncomplicated; Z90.49 Acquired absence of other specified parts of digestive tract; Z95.5 Presence of coronary angioplasty implant and graft; Z93.3 Colostomy status; Z79.899 Other long term (current) drug therapy; Z79.82 Long term (current) use of aspirin; Z79.01 Long term (current) use of anticoagulants; Z88.0 Allergy status to penicillin; Y92.9 Unspecified place or not applicable

== ENCOUNTER → 2018-05-12 | Outpatient (CLI) | payer MEDICARE ==
[~2018-05-12] MED LIST changes: +Bactroban Oint22 GM T
[2018-05-12 12:21] LABS: BASO % 0.3 % (0.0-1.0); EOS # 0.1 10*3/uL (0.0-0.4); EOS % 1.2 % (1.0-4.0); HEMOGLOBIN 14.1 g/dl (14.0-18.0); LYMPH # 2.5 10*3/uL (1.3-4.4); LYMPH % 32.7 % (27.0-41.0); MEAN CELL VOLUME 87.9 fl (80.0-94.0); MEAN CORPUSCULAR HGB 29.5 pg (27.0-31.0); MEAN CORPUSCULAR HGB CONC 33.6 g/dl (33.0-37.0); MEAN PLATELET VOLUME 10.4 fl (9.6-12.3); MONO # 0.6 10*3/uL (0.1-1.0); MONO % 7.3 % (3.0-9.0); NEUT # 4.5 10*3/uL (2.3-7.9); NEUT % 58.1 % (47.0-73.0); PLATELET COUNT AUTOMATED 242 10*3/uL (130-400); RED BLOOD COUNT 4.78 10*6/uL (4.50-5.90); RED CELL DISTRI WIDTH 15.4 % (0-14.5); WHITE BLOOD COUNT 7.8 10*3/uL (4.8-10.8)
[2018-05-12 12:44] LABS: ALBUMIN 3.7 gm/dl (3.1-4.5); ALKALINE PHOSPHATASE 73 U/L (45-117); BUN 17 mg/dl (7-24); CHLORIDE 100 mmol/L (98-107); CHOLESTEROL 163 mg/dL (<200); HDL CHOLESTEROL 27 mg/dl (40-60); LDL CHOLESTEROL 94 mg/dL (9-159); POTASSIUM 3.5 mmol/L (3.5-5.1); SGOT/AST 39 IU/L (3-35); SGPT/ALT 56 U/L (12-78); SODIUM 136 mmol/L (136-145); TRIGLYCERIDES 208 mg/dl (<150); VLDL CHOLESTEROL 42 mg/dL (6-40)
== END | disposition home or self-care (01) ==
LOC: LAB 10:49
PROVIDERS: Nurse Practitioner Family
DX: I48.0 Paroxysmal atrial fibrillation (principal); I10 Essential (primary) hypertension; D50.8 Other iron deficiency anemias; E78.00 Pure hypercholesterolemia, unspecified; M25.511 Pain in right shoulder

== ENCOUNTER → 2018-05-31 | Outpatient (CLI) | payer MEDICARE | END | disposition home or self-care (01) | LOC: ORTHO 01:02 | DX: M25.511 Pain in right shoulder (principal) ==

== ENCOUNTER → 2018-06-06 | Outpatient (CLI) | payer MEDICARE | END | disposition home or self-care (01) | LOC: RAD 15:28 | DX: R06.2 Wheezing (principal); R05 Cough; I10 Essential (primary) hypertension; Z95.5 Presence of coronary angioplasty implant and graft ==

== ENCOUNTER → 2018-08-22 | Outpatient (CLI) | payer MEDICARE ==
[~2018-08-22] MED LIST changes: +COUMADIN1 M1 PO; +COUMADIN4 M2 PO; +ZOFRAN4 MG PO
== END | disposition home or self-care (01) ==
LOC: MRI 10:43
DX: M75.101 Unspecified rotator cuff tear or rupture of right shoulder, not specified as traumatic (principal); M25.511 Pain in right shoulder

== ENCOUNTER 2018-10-07 15:27 | Inpatient (IN) | payer MEDICARE ==
[~2018-10-07] VITALS: Ht 185.4 cm; Wt 106.8 kg
--- NOTE | ~2018-10-07 | EKG ---
[place], [place] ELECTROCARDIOGRAM REPORT NAME: JOHAN SETH UNIT #: [id number] ROOM: 511 DOCTOR: HANNAH DRAFT REPORT BIRTHDATE: [birth year] [facility] Test Date: 2018-10-07 Test Time: 16:29:13 Pat Name: JOHAN SETH Department: Room: 511 Gender: M Rest Room Maid: Mita Alarcon : 1945 Requested By: KHUSHBU CHRISTIAN Order Number: [id number] Reading MD: Louise Fernandez MD Measurements Intervals [place] Rate: 82 P: [place]: QRS: 13 QRSD: 104 T: -7 QT: 423 QTc: 494 Interpretive Statements Atrial fibrillation Borderline repolarization abnormality Borderline prolonged QT interval Baseline wander in lead(s) II,aVF No previous ECG available for comparison Electronically Signed On 10-08-2018 12:02:24 PST by Louise Fernandez MD CM:EKGRPT:ELECTROCARDIOGRAM REPORT [id number] KHUSHBU YOUNG DRAFT REPORT KHUSHBU CHRISTIAN MD
[~2018-10-07 15:27] MED LIST changes: -COUMADIN1 M1 PO; -COUMADIN4 M2 PO; -ZOFRAN4 MG PO
[2018-10-07 15:29] VITALS: BP 131/74
[2018-10-07 16:30] VITALS: BP 128/72
[2018-10-07 16:41] LABS: BASO % 0.3 % (0.0-1.0); EOS # 0.1 10*3/uL (0.0-0.4); EOS % 1.3 % (1.0-4.0); HEMATOCRIT 48.2 % (42.0-52.0); HEMOGLOBIN 16.4 g/dl (14.0-18.0); LYMPH % 27.2 % (27.0-41.0); MEAN CELL VOLUME 88.6 fl (80.0-94.0); MEAN CORPUSCULAR HGB 30.1 pg (27.0-31.0); MEAN PLATELET VOLUME 9.9 fl (9.6-12.3); MONO # 0.9 10*3/uL (0.1-1.0); MONO % 7.9 % (3.0-9.0); NEUT # 6.9 10*3/uL (2.3-7.9); NEUT % 62.8 % (47.0-73.0); PLATELET COUNT AUTOMATED 288 10*3/uL (130-400); RED BLOOD COUNT 5.44 10*6/uL (4.50-5.90); RED CELL DISTRI WIDTH 14.1 % (0-14.5); WHITE BLOOD COUNT 10.9 10*3/uL (4.8-10.8)
[2018-10-07 16:50] LABS: ACT PARTIAL THROMBO TIME 26.4 SECONDS (20.8-31.5); INTERNATIONAL NORM RATIO 1.5 (2.0-3.5)
[2018-10-07 17:13] LABS: ALBUMIN 3.8 gm/dl (3.1-4.5); ALKALINE PHOSPHATASE 83 U/L (45-117); BUN 28 mg/dl (7-24); CHLORIDE 98 mmol/L (98-107); CREATININE 1.62 mg/dL (0.70-1.30); LIPASE 123 U/L (73-393); SGOT/AST 50 IU/L (3-35); SGPT/ALT 81 U/L (12-78); SODIUM 136 mmol/L (136-145); TOTAL PROTEIN 8.7 gm/dL (6.4-8.2)
[2018-10-07 17:20] LABS: TROPONIN I < 0.015 ng/ml (<0.045)
[2018-10-07] MEDS ORDERED: ZOFRAN4 MG PO (18:21)
[2018-10-07 18:52] VITALS: BP 138/71
[2018-10-07 19:48] LABS: BILIRUBIN NEGATIVE (NEGATIVE); BLOOD NEGATIVE (NEGATIVE); CLARITY CLEAR (CLEAR); COLOR YELLOW (YELLOW); GLUCOSE NEGATIVE (NEGATIVE); KETONE NEGATIVE (NEGATIVE); LEUKO ESTERASE NEGATIVE (NEGATIVE); NITRITE NEGATIVE (NEGATIVE); PH 5.5 (5.0-9.0); SPECIFIC GRAVITY <= 1.005 (1.005-1.030); UROBILINOGEN 0.2 E.U./dl (0.2-1.0)
[2018-10-07 19:56] LABS: BACTERIA TRACE; EPITHELIAL CELLS 0-2; WBC 0-2 wbc/hpf (0-5)
[2018-10-07 20:08] VITALS: BP 141/73
--- NOTE | 2018-10-07 20:08 | NUR ---
A 73, admitted to 5E, under the services of JUANITO Billings DO with a diagnosis of TEJAL PARTIAL BOWEL OBSTRUCTION. Chief complaint is NAUSEA. Patient arrived via stretcher from ER. Monitor applied. Initial assessment completed. Vital signs taken and recorded. JUANITO BILLINGS DO notified of admission to the unit. Orders received. See assessment for past medical history, medications and allergies. Patient and/or family oriented to unit. [facility] FLO[facility] visitation policy reviewed. Clothing/patient valuable form completed. LARON OSORIO
[2018-10-07] MEDS ORDERED: COUMADIN7.5 M1 PO (20:38)
[2018-10-07] MEDS ORDERED: COUMADIN4 M2 PO (20:41)
[2018-10-08] VITALS: BP 119/76
[2018-10-08 06:42] LABS: BASO % 0.3 % (0.0-1.0); EOS # 0.1 10*3/uL (0.0-0.4); EOS % 1.3 % (1.0-4.0); HEMATOCRIT 44.5 % (42.0-52.0); HEMOGLOBIN 15.1 g/dl (14.0-18.0); LYMPH # 1.9 10*3/uL (1.3-4.4); LYMPH % 21.5 % (27.0-41.0); MEAN CELL VOLUME 88.6 fl (80.0-94.0); MEAN CORPUSCULAR HGB 30.1 pg (27.0-31.0); MEAN CORPUSCULAR HGB CONC 33.9 g/dl (33.0-37.0); MEAN PLATELET VOLUME 10.4 fl (9.6-12.3); MONO # 0.8 10*3/uL (0.1-1.0); MONO % 9.2 % (3.0-9.0); NEUT # 5.8 10*3/uL (2.3-7.9); NEUT % 67.1 % (47.0-73.0); PLATELET COUNT AUTOMATED 244 10*3/uL (130-400); RED BLOOD COUNT 5.02 10*6/uL (4.50-5.90); RED CELL DISTRI WIDTH 14.1 % (0-14.5); WHITE BLOOD COUNT 8.6 10*3/uL (4.8-10.8)
[2018-10-08 07:07] LABS: ALBUMIN 3.5 gm/dl (3.1-4.5); ALKALINE PHOSPHATASE 82 U/L (45-117); BUN 22 mg/dl (7-24); CHLORIDE 104 mmol/L (98-107); CHOLESTEROL 157 mg/dL (<200); CREATININE 1.28 mg/dL (0.70-1.30); FREE T4 0.96 ng/dl (0.76-1.46); HDL CHOLESTEROL 23 mg/dl (40-60); LDL CHOLESTEROL 96 mg/dL (9-159); PHOSPHOROUS 2.9 mg/dL (2.5-4.9); POTASSIUM 3.1 mmol/L (3.5-5.1); SGOT/AST 41 IU/L (3-35); SGPT/ALT 71 U/L (12-78); SODIUM 141 mmol/L (136-145); TOTAL PROTEIN 7.9 gm/dL (6.4-8.2); TRIGLYCERIDES 192 mg/dl (<150); VLDL CHOLESTEROL 38 mg/dL (6-40)
[2018-10-08 07:10] LABS: INTERNATIONAL NORM RATIO 1.4 (2.0-3.5)
[2018-10-08 07:59] LABS: VITAMIN D, 25-HYDROXY 25.1 ng/mL (30-100)
[2018-10-08 08:00] VITALS: BP 128/92
[2018-10-08 12:00] VITALS: BP 135/72
[2018-10-08 16:00] VITALS: BP 126/75
[2018-10-08 20:00] VITALS: BP 116/57
[2018-10-09] VITALS: BP 116/57
--- NOTE | 2018-10-09 05:37 | NUR ---
LYING AWAKE IN BED FOLLOWING MORNING LABS. TOLERATED PO MED WELL. CALL LIGHT IN REACH. NO COMPLAINTS AT THIS TIME.
[2018-10-09 06:50] LABS: INTERNATIONAL NORM RATIO 1.3 (2.0-3.5)
[2018-10-09 08:00] VITALS: BP 122/72
[2018-10-09 12:00] VITALS: BP 106/56; BP 124/70
[2018-10-09 12:16] LABS: ALBUMIN 3.6 gm/dl (3.1-4.5); CREATININE 1.42 mg/dL (0.70-1.30); POTASSIUM 3.5 mmol/L (3.5-5.1); TOTAL PROTEIN 8.1 gm/dL (6.4-8.2)
[2018-10-09 16:00] VITALS: BP 118/50
[2018-10-09 20:00] VITALS: BP 118/68
--- NOTE | 2018-10-09 23:29 | NUR ---
24HR CHART CHECK COMPLETED.
[2018-10-10] VITALS: BP 122/82
[2018-10-10 06:44] LABS: INTERNATIONAL NORM RATIO 1.6 (2.0-3.5)
--- NOTE | 2018-10-10 07:10 | NUR ---
BEDSIDE REPORT OOBTAINED FROM BEATRICE-RN. PATIENT IS AWAKE & ALERT, VOICED NO COMPLAINTS. NO S&S OF DISTRESS NOTED, RESP ARE ERND ON ROOM AIR. PATIENT IS SITTING UP IN RECLINER, LOCKED, RESTING COMFORTABLY. CALL LIGHT LEFT WITHIN REACH.
--- NOTE | 2018-10-10 07:43 | NUR ---
VITALS STABLE, HR 70 APPLICATION DEVELOPMENT PROJECT MANAGER, NO PAIN AT TIME OF ASSESSMENT, A&OX3 HEART SOUNDS IRREGULAR DUE TO A-FIB, LUNG SOUNDS CLEAR BILATERALLY, BOWELS SOUNDS ACTIVE X4, NONDISTENDED, SLIGHT TEMDERNESS, COLOSTOMY INTACT WITH GREENISH/BROWN SOFT STOOL, NO EDEMA NOTED, CAP REFILL <3 SECONDS, +PEDAL PULSES, SKIN INTACT P/W/D. LASHAE NEALCC
[2018-10-10 07:55] VITALS: BP 120/68
[2018-10-10 08:03] VITALS: BP 120/68
[2018-10-10] MEDS ORDERED: COUMADIN1 M1 PO (10:40)
--- NOTE | 2018-10-10 11:02 | NUR ---
24 HR chart check completed.
--- NOTE | 2018-10-10 11:05 | NUR ---
Discharge instructions reviewed with patient/family. Patient receptive and verbalizes understanding. Follow-up care arranged. Written instructions given to patient/family. HEP LOCK AND MONITOR REMOVED, REVIEWED MEDICATION LIST WITH HIM, DISCHARGED VIA WHEELCHAIR, CONDITION STABLE. LASHAE ROGEL COMPA PALMER
--- NOTE | 2018-10-10 12:06 | NUR ---
[employer] Advanced Operator Maintainer in to talk to patient. Patient states lives at HOME with . There are 10 steps in the home. Physician: Toi PEGUERO Pharmacy: [facility] [place] health services: NONE Patient's level of ADLs: INDEPENDENT Patient has working utilities: YES DME: C PAP Follow-up physician's appointment after d/c: WILL BE MADE BY HOSPITALIST NURSE DIRECTOR ON DISCHARGE Does patient want to access PORTAL?: NO Discharge plan PT STATES HE LIVES AT HOME WITH HIS AND IS INDEPENDENT IN CARE. DENIES ANY HOME NEEDS AT THIS TIME. WILL CONTINUE TO FOLLOW. PT STATES HE DROVE HIMSELF TO APPOINTMENT AT DR HERNANDEZ OFFICE AND WAS VOMITING SO SHE WANTED HIM TO GET CHECKED OUT BEFORE SCHEDULED SHOULDER SURGERY. PT STATES HE WILL DRIVE HIMSELF HOME ON DISCHARGE.. KALYANI VAUGHAN
[2018-10-27] MEDS ORDERED: FISH OIL CONC1000 M1 PO (10:44)
[2018-10-27] MEDS ORDERED: LOPRESSOR50 M1 PO (10:45)
[2018-11-03] MEDS ORDERED: ZOFRAN4 MG PO (08:54)
[2018-11-03] MEDS ORDERED: NORCO 5-325 TA1 EACH PO (08:55)
== END 2018-10-10 11:05 | disposition home or self-care (01) | DRG 388 ==
LOC: ED 15:27 → EDHOLD 18:42 → 5E 19:59
PROVIDERS: Emergency Medicine; Internal Medicine; Internal Medicine Nephrology; ADMIT Emergency Medicine
DX: K56.600 Partial intestinal obstruction, unspecified as to cause (principal); N17.0 Acute kidney failure with tubular necrosis; J90 Pleural effusion, not elsewhere classified; E87.6 Hypokalemia; D72.828 Other elevated white blood cell count; E83.41 Hypermagnesemia; R79.1 Abnormal coagulation profile; E86.0 Dehydration; I25.10 Atherosclerotic heart disease of native coronary artery without angina pectoris; E78.5 Hyperlipidemia, unspecified; K57.90 Diverticulosis of intestine, part unspecified, without perforation or abscess without bleeding; M19.90 Unspecified osteoarthritis, unspecified site; I48.2 Chronic atrial fibrillation; R74.0 Nonspecific elevation of levels of transaminase and lactic acid dehydrogenase [LDH]; Z93.3 Colostomy status; Z72.0 Tobacco use; Z71.6 Tobacco abuse counseling; Z79.01 Long term (current) use of anticoagulants; Z90.49 Acquired absence of other specified parts of digestive tract; Z88.0 Allergy status to penicillin; Z86.73 Personal history of transient ischemic attack (TIA), and cerebral infarction without residual deficits; Z95.5 Presence of coronary angioplasty implant and graft; Z82.49 Family history of ischemic heart disease and other diseases of the circulatory system; Z80.3 Family history of malignant neoplasm of breast; Z80.1 Family history of malignant neoplasm of trachea, bronchus and lung; Z83.3 Family history of diabetes mellitus; Z82.5 Family history of asthma and other chronic lower respiratory diseases; Z79.82 Long term (current) use of aspirin; Z79.899 Other long term (current) drug therapy

== ENCOUNTER → 2018-11-03 | Day surgery (SDC) | payer MEDICARE ==
[2018-10-27 10:43] VITALS: BP 127/66
[~2018-11-03] VITALS: Ht 185.4 cm; Wt 108.9 kg
[~2018-11-03] MED LIST changes: +COUMADIN1 M1 PO; +COUMADIN4 M2 PO; +FISH OIL CONC1000 M1 PO; +LOPRESSOR50 M1 PO; +NORCO 5-325 TA1 EACH PO; +ZOFRAN4 MG PO
[2018-11-03 07:10] VITALS: BP 136/76
[2018-11-03 07:11] LABS: INTERNATIONAL NORM RATIO 1.2 (2.0-3.5)
[2018-11-03 09:02] VITALS: BP 145/95
[2018-11-03 09:17] VITALS: BP 143/86
[2018-11-03 09:32] VITALS: BP 147/85
[2018-11-03 09:47] VITALS: BP 145/87
[2018-11-03 10:02] VITALS: BP 140/80
== END | disposition home or self-care (01) ==
LOC: SDC 10-27 10:15
PROVIDERS: Orthopaedic Surgery
DX: M19.011 Primary osteoarthritis, right shoulder (principal); I10 Essential (primary) hypertension; I25.10 Atherosclerotic heart disease of native coronary artery without angina pectoris; M19.90 Unspecified osteoarthritis, unspecified site; E78.00 Pure hypercholesterolemia, unspecified; I48.91 Unspecified atrial fibrillation; Z98.890 Other specified postprocedural states; Z86.73 Personal history of transient ischemic attack (TIA), and cerebral infarction without residual deficits; Z79.899 Other long term (current) drug therapy; Z83.3 Family history of diabetes mellitus; Z82.49 Family history of ischemic heart disease and other diseases of the circulatory system; Z90.49 Acquired absence of other specified parts of digestive tract; Z79.01 Long term (current) use of anticoagulants

== ENCOUNTER → 2018-11-09 | Outpatient (CLI) | payer MEDICARE | END | disposition home or self-care (01) | LOC: RAD 15:12 | DX: I48.0 Paroxysmal atrial fibrillation (principal); J15.9 Unspecified bacterial pneumonia; R53.83 Other fatigue; R05 Cough; J90 Pleural effusion, not elsewhere classified; I10 Essential (primary) hypertension; I25.10 Atherosclerotic heart disease of native coronary artery without angina pectoris ==

== ENCOUNTER → 2019-05-01 | Outpatient (CLI) | payer MEDICARE ==
[~2019-05-01] MED LIST changes: +DOXYCYCLINE100 M3 PO
[2019-05-01 08:50] LABS: BASO % 0.2 % (0.0-1.0); EOS # 0.1 10*3/uL (0.0-0.4); EOS % 1.5 % (1.0-4.0); HEMATOCRIT 44.2 % (42.0-52.0); HEMOGLOBIN 14.8 g/dl (14.0-18.0); LYMPH % 36.1 % (27.0-41.0); MEAN CELL VOLUME 87.7 fl (80.0-94.0); MEAN CORPUSCULAR HGB 29.4 pg (27.0-31.0); MEAN CORPUSCULAR HGB CONC 33.5 g/dl (33.0-37.0); MEAN PLATELET VOLUME 10.6 fl (9.6-12.3); MONO # 0.6 10*3/uL (0.1-1.0); MONO % 7.3 % (3.0-9.0); NEUT # 4.5 10*3/uL (2.3-7.9); NEUT % 54.7 % (47.0-73.0); PLATELET COUNT AUTOMATED 256 10*3/uL (130-400); RED BLOOD COUNT 5.04 10*6/uL (4.50-5.90); RED CELL DISTRI WIDTH 14.7 % (0-14.5); WHITE BLOOD COUNT 8.2 10*3/uL (4.8-10.8)
[2019-05-01 09:21] LABS: ALBUMIN 3.7 gm/dl (3.1-4.5); BUN 14 mg/dl (7-24); CHLORIDE 102 mmol/L (98-107); CHOLESTEROL 175 mg/dL (<200); CREATININE 1.13 mg/dL (0.70-1.30); POTASSIUM 3.4 mmol/L (3.5-5.1); SGOT/AST 36 IU/L (3-35); SGPT/ALT 52 U/L (12-78); SODIUM 137 mmol/L (136-145); TRIGLYCERIDES 250 mg/dl (<150); VLDL CHOLESTEROL 50 mg/dL (6-40)
[2019-05-01 09:23] LABS: ALKALINE PHOSPHATASE 90 U/L (45-117); HDL CHOLESTEROL 27 mg/dl (40-60); LDL CHOLESTEROL 98 mg/dL (9-159); TOTAL PROTEIN 8.1 gm/dL (6.4-8.2)
== END | disposition home or self-care (01) ==
LOC: LAB 07:56
PROVIDERS: Nurse Practitioner Family
DX: I48.0 Paroxysmal atrial fibrillation (principal); J15.9 Unspecified bacterial pneumonia; I10 Essential (primary) hypertension; E78.00 Pure hypercholesterolemia, unspecified; R05 Cough

== ENCOUNTER 2019-05-13 11:08 | Emergency (ER) | payer MEDICARE ==
[~2019-05-13] VITALS: Ht 185.4 cm; Wt 104.3 kg
[2019-05-13 12:10] LABS: BASO % 0.3 % (0.0-1.0); EOS # 0.1 10*3/uL (0.0-0.4); EOS % 1.1 % (1.0-4.0); HEMATOCRIT 41.8 % (42.0-52.0); HEMOGLOBIN 13.9 g/dl (14.0-18.0); LYMPH # 2.2 10*3/uL (1.3-4.4); LYMPH % 31.6 % (27.0-41.0); MEAN CELL VOLUME 88.4 fl (80.0-94.0); MEAN CORPUSCULAR HGB 29.4 pg (27.0-31.0); MEAN CORPUSCULAR HGB CONC 33.3 g/dl (33.0-37.0); MEAN PLATELET VOLUME 10.3 fl (9.6-12.3); MONO # 0.6 10*3/uL (0.1-1.0); MONO % 8.6 % (3.0-9.0); NEUT # 4.1 10*3/uL (2.3-7.9); NEUT % 58.1 % (47.0-73.0); PLATELET COUNT AUTOMATED 217 10*3/uL (130-400); RED BLOOD COUNT 4.73 10*6/uL (4.50-5.90); RED CELL DISTRI WIDTH 14.7 % (0-14.5)
[2019-05-13 12:26] LABS: ALBUMIN 3.3 gm/dl (3.1-4.5); CREATININE 1.47 mg/dL (0.70-1.30); POTASSIUM 3.6 mmol/L (3.5-5.1); TOTAL PROTEIN 7.3 gm/dL (6.4-8.2)
[2019-05-13 13:55] LABS: ACT PARTIAL THROMBO TIME 41.2 SECONDS (20.0-32.1); INTERNATIONAL NORM RATIO 1.8 (2.0-3.5)
[2019-05-13 15:00] VITALS: BP 126/71
== END 2019-05-13 15:01 | disposition home or self-care (01) ==
LOC: ED 11:08
PROVIDERS: Physician Assistant
DX: R23.3 Spontaneous ecchymoses (principal); F17.220 Nicotine dependence, chewing tobacco, uncomplicated; Z79.899 Other long term (current) drug therapy; Z98.2 Presence of cerebrospinal fluid drainage device; Z79.01 Long term (current) use of anticoagulants; Z88.0 Allergy status to penicillin

== ENCOUNTER → 2019-05-29 | Outpatient (CLI) | payer MEDICARE ==
[~2019-05-29] MED LIST changes: +CLEOCIN HCL300 MG PO
== END | disposition home or self-care (01) ==
LOC: RAD 09:08
DX: J15.9 Unspecified bacterial pneumonia (principal); I77.6 Arteritis, unspecified; D68.9 Coagulation defect, unspecified; I48.91 Unspecified atrial fibrillation

== ENCOUNTER → 2019-06-14 | Outpatient (CLI) | payer MEDICARE ==
[2019-06-14 15:06] LABS: CREATININE 1.18 mg/dL (0.70-1.30)
== END | disposition home or self-care (01) ==
LOC: LAB 14:21 → CT 15:00
PROVIDERS: Internal Medicine Critical Care Medicine
DX: J90 Pleural effusion, not elsewhere classified (principal); R91.8 Other nonspecific abnormal finding of lung field

== ENCOUNTER 2019-06-27 09:37 | Emergency (ER) | payer MEDICARE ==
[~2019-06-27] VITALS: Ht 185.4 cm; Wt 110.7 kg
[~2019-06-27 09:37] MED LIST changes: -CLEOCIN HCL300 MG PO
[2019-06-27 10:55] VITALS: BP 142/89
== END 2019-06-27 11:30 | disposition home or self-care (01) ==
LOC: ED 09:37
DX: S60.222A Contusion of left hand, initial encounter (principal); I10 Essential (primary) hypertension; I25.10 Atherosclerotic heart disease of native coronary artery without angina pectoris; E78.00 Pure hypercholesterolemia, unspecified; I48.91 Unspecified atrial fibrillation; F17.220 Nicotine dependence, chewing tobacco, uncomplicated; Z86.73 Personal history of transient ischemic attack (TIA), and cerebral infarction without residual deficits; Z79.01 Long term (current) use of anticoagulants; Z88.0 Allergy status to penicillin; Z79.899 Other long term (current) drug therapy; Z79.2 Long term (current) use of antibiotics; Z79.82 Long term (current) use of aspirin; W22.09XA Striking against other stationary object, initial encounter; Y93.K1 Activity, walking an animal; Y92.89 Other specified places as the place of occurrence of the external cause; Y99.8 Other external cause status

== ENCOUNTER 2019-07-04 08:05 | Emergency (ER) | payer MEDICARE ==
[~2019-07-04] VITALS: Ht 185.4 cm; Wt 108.9 kg
[2019-07-04 08:06] VITALS: BP 185/75
[2019-07-04] MEDS ORDERED: CLEOCIN HCL300 MG PO (08:44)
== END 2019-07-04 08:55 | disposition home or self-care (01) ==
LOC: ED 08:05
DX: L02.522 Furuncle left hand (principal); I48.91 Unspecified atrial fibrillation; I10 Essential (primary) hypertension; E78.00 Pure hypercholesterolemia, unspecified; I25.10 Atherosclerotic heart disease of native coronary artery without angina pectoris; E78.1 Pure hyperglyceridemia; Z88.0 Allergy status to penicillin; Z79.899 Other long term (current) drug therapy; Z79.2 Long term (current) use of antibiotics; Z79.82 Long term (current) use of aspirin; Z79.01 Long term (current) use of anticoagulants; Z86.73 Personal history of transient ischemic attack (TIA), and cerebral infarction without residual deficits

== ENCOUNTER 2019-07-14 09:20 | Inpatient (IN) | payer MEDICARE ==
[~2019-07-14] VITALS: Ht 185.4 cm; Wt 108.5 kg
[~2019-07-14 09:20] MED LIST changes: +CLEOCIN HCL300 MG PO
[2019-07-14 09:21] VITALS: BP 150/94
[2019-07-14 10:04] LABS: BASO % 0.4 % (0.0-1.0); EOS # 0.1 10*3/uL (0.0-0.4); EOS % 1.3 % (1.0-4.0); HEMATOCRIT 44.2 % (42.0-52.0); HEMOGLOBIN 14.7 g/dl (14.0-18.0); LYMPH # 2.2 10*3/uL (1.3-4.4); LYMPH % 31.4 % (27.0-41.0); MEAN CELL VOLUME 88.8 fl (80.0-94.0); MEAN CORPUSCULAR HGB 29.5 pg (27.0-31.0); MEAN CORPUSCULAR HGB CONC 33.3 g/dl (33.0-37.0); MEAN PLATELET VOLUME 10.3 fl (9.6-12.3); MONO # 0.4 10*3/uL (0.1-1.0); MONO % 5.9 % (3.0-9.0); NEUT # 4.3 10*3/uL (2.3-7.9); NEUT % 60.7 % (47.0-73.0); PLATELET COUNT AUTOMATED 243 10*3/uL (130-400); RED BLOOD COUNT 4.98 10*6/uL (4.50-5.90); RED CELL DISTRI WIDTH 14.7 % (0-14.5); WHITE BLOOD COUNT 7.1 10*3/uL (4.8-10.8)
[2019-07-14 10:14] LABS: ACT PARTIAL THROMBO TIME 40.2 SECONDS (20.0-32.1); INTERNATIONAL NORM RATIO 1.4 (2.0-3.5)
[2019-07-14 10:21] LABS: ALBUMIN 3.8 gm/dl (3.1-4.5); ALKALINE PHOSPHATASE 85 U/L (45-117); BUN 13 mg/dl (7-24); CHLORIDE 104 mmol/L (98-107); CREATININE 1.25 mg/dL (0.70-1.30); POTASSIUM 3.6 mmol/L (3.5-5.1); SGOT/AST 48 IU/L (3-35); SGPT/ALT 53 U/L (12-78); SODIUM 136 mmol/L (136-145); TOTAL PROTEIN 8.1 gm/dL (6.4-8.2)
[2019-07-14 10:21] LABS: BILIRUBIN NEGATIVE (NEGATIVE); BLOOD NEGATIVE (NEGATIVE); CLARITY CLEAR (CLEAR); COLOR YELLOW (YELLOW); GLUCOSE NEGATIVE (NEGATIVE); KETONE NEGATIVE (NEGATIVE); LEUKO ESTERASE NEGATIVE (NEGATIVE); NITRITE NEGATIVE (NEGATIVE); UROBILINOGEN 0.2 E.U./dl (0.2-1.0)
[2019-07-14 10:38] LABS: TROPONIN I < 0.015 ng/ml (<0.045)
[2019-07-14 10:50] LABS: BACTERIA TRACE; EPITHELIAL CELLS 0-2; WBC 0-2 wbc/hpf (0-5)
--- NOTE | 2019-07-14 11:00 | NUR ---
The assessment has been completed. MARIANO OWEN
--- NOTE | 2019-07-14 14:30 | NUR ---
DR. [place]ARA ANSWERING SERVICE NOTIFIED OF CONSULT.
--- NOTE | 2019-07-14 14:32 | NUR ---
DR. ALEMAN HERE AND HAS SEEN PATIENT.
--- NOTE | 2019-07-14 14:42 | NUR ---
MEDICATED WITH PRN NORCO PER ORDER AND REQUEST FOR L HAND PAIN.
--- NOTE | 2019-07-14 15:20 | NUR ---
Time: 1100 A 73 year old male admitted to 5E under services of MIKE GRACE DO, Pt. arrived via stretcher from ER. Chief complaint: left hand abcess. MARIANO OWEN
[2019-07-14 16:00] VITALS: BP 119/61
[2019-07-14 20:00] VITALS: BP 129/76
[2019-07-15] VITALS: BP 129/72
--- NOTE | 2019-07-15 03:50 | NUR ---
Shift chart check completed.
[2019-07-15 06:41] LABS: BASO % 0.4 % (0.0-1.0); EOS # 0.2 10*3/uL (0.0-0.4); EOS % 2.9 % (1.0-4.0); HEMATOCRIT 43.4 % (42.0-52.0); HEMOGLOBIN 14.3 g/dl (14.0-18.0); LYMPH % 28.3 % (27.0-41.0); MEAN CELL VOLUME 89.3 fl (80.0-94.0); MEAN CORPUSCULAR HGB 29.4 pg (27.0-31.0); MEAN CORPUSCULAR HGB CONC 32.9 g/dl (33.0-37.0); MEAN PLATELET VOLUME 10.6 fl (9.6-12.3); MONO # 0.6 10*3/uL (0.1-1.0); MONO % 8.8 % (3.0-9.0); NEUT # 4.1 10*3/uL (2.3-7.9); NEUT % 59.3 % (47.0-73.0); PLATELET COUNT AUTOMATED 247 10*3/uL (130-400); RED BLOOD COUNT 4.86 10*6/uL (4.50-5.90); RED CELL DISTRI WIDTH 14.7 % (0-14.5); WHITE BLOOD COUNT 6.9 10*3/uL (4.8-10.8)
[2019-07-15 06:57] LABS: BUN 12 mg/dl (7-24); CHLORIDE 108 mmol/L (98-107); CREATININE 1.24 mg/dL (0.70-1.30); PHOSPHOROUS 3.2 mg/dL (2.5-4.9); POTASSIUM 3.5 mmol/L (3.5-5.1); SODIUM 141 mmol/L (136-145)
[2019-07-15 07:25] LABS: INTERNATIONAL NORM RATIO 1.4 (2.0-3.5)
[2019-07-15 08:00] VITALS: BP 153/83
[2019-07-15 08:56] LABS: VITAMIN D, 25-HYDROXY 33.8 ng/mL (30-100)
--- NOTE | 2019-07-15 09:44 | NUR ---
DR ALEMAN ROUNDED AND SEEN PT. WOUND CULTURE COLLECTED AND DRESSING CHANGE COMPLETED BY DR ALEMAN.
--- NOTE | 2019-07-15 10:33 | NUR ---
NORCO 58/325 GIVEN FOR C/O LEFT HAND WOUND PAIN,01/23.
[2019-07-15 12:00] VITALS: BP 135/64
--- NOTE | 2019-07-15 14:24 | NUR ---
DR DINH ROUNDED AND ASSESSED PT.PT HAS BEEN CLEARED FOR D/C AND DR MARTINEZ NOTIFIED.
[2019-07-15] MEDS ORDERED: OMNICEF300 MG PO (14:27)
[2019-07-15] MEDS ORDERED: DOXYCYCLINE100 M3 PO (14:27)
[2019-07-15] MEDS ORDERED: COUMADIN7.5 M1 PO (14:53)
--- NOTE | 2019-07-15 15:20 | NUR ---
PT REFUSES D/C PHOTOS TO RIGHT HAND D/T ALREADY HAVING DRESSING APPLIED TWICE ALREADY TODAY.HEPLOCK D/C AT THIS TIME.
--- NOTE | 2019-07-15 15:45 | NUR ---
SPOKE TO PHARMACIST ,BALJINDER, REGARDING D/C MEDICATIONS. PHARMACY CLOSED AND UNABLE TO FILL ANTIBIOTICS. PER PT REQUEST ABX SENT TO [facility]. PT WILL RETURN WEDNESDAY DURING NORMAL BUSINESS HRS AND JAVA FRONT END WEB DEVELOPER COUMADIN AT [facility].
--- NOTE | 2019-07-15 15:55 | NUR ---
Discharge instructions reviewed with patient/family. Patient receptive and verbalizes understanding. Follow-up care arranged. Written instructions given to patient/family. PAULIE CHEEMA
== END 2019-07-15 16:01 | disposition home or self-care (01) | DRG 603 ==
LOC: ED 09:20 → EDHOLD 10:40 → 5E 10:54
PROVIDERS: Internal Medicine; Nurse Practitioner Family; ADMIT Internal Medicine
PROC: 0X9K0ZZ Drainage of Left Hand, Open Approach (ICD-10-PCS; principal; 2019-07-14)
DX: L03.114 Cellulitis of left upper limb (principal); L02.512 Cutaneous abscess of left hand; R73.9 Hyperglycemia, unspecified; I48.0 Paroxysmal atrial fibrillation; I10 Essential (primary) hypertension; E83.41 Hypermagnesemia; E78.5 Hyperlipidemia, unspecified; K57.90 Diverticulosis of intestine, part unspecified, without perforation or abscess without bleeding; I25.10 Atherosclerotic heart disease of native coronary artery without angina pectoris; M19.90 Unspecified osteoarthritis, unspecified site; G47.33 Obstructive sleep apnea (adult) (pediatric); S60.222A Contusion of left hand, initial encounter; X58.XXXA Exposure to other specified factors, initial encounter; Y92.89 Other specified places as the place of occurrence of the external cause; Y99.8 Other external cause status; Z79.01 Long term (current) use of anticoagulants; Y93.89 Activity, other specified; Z86.73 Personal history of transient ischemic attack (TIA), and cerebral infarction without residual deficits; Z95.5 Presence of coronary angioplasty implant and graft; Z88.0 Allergy status to penicillin; Z90.49 Acquired absence of other specified parts of digestive tract; Z82.49 Family history of ischemic heart disease and other diseases of the circulatory system; Z80.3 Family history of malignant neoplasm of breast; Z80.1 Family history of malignant neoplasm of trachea, bronchus and lung; Z83.3 Family history of diabetes mellitus; Z79.899 Other long term (current) drug therapy; Z79.82 Long term (current) use of aspirin

== ENCOUNTER → 2019-09-29 | Outpatient (CLI) | payer MEDICARE ==
[~2019-09-29] MED LIST changes: +OMNICEF300 MG PO
== END | disposition home or self-care (01) ==
LOC: CT 12:52
DX: J90 Pleural effusion, not elsewhere classified (principal); R91.8 Other nonspecific abnormal finding of lung field; J92.9 Pleural plaque without asbestos

== ENCOUNTER → 2019-10-06 | Outpatient (CLI) | payer MEDICARE ==
[2019-10-06 09:32] LABS: BASO % 0.4 % (0.0-1.0); EOS # 0.1 10*3/uL (0.0-0.4); EOS % 1.4 % (1.0-4.0); HEMATOCRIT 45.9 % (42.0-52.0); HEMOGLOBIN 14.7 g/dl (14.0-18.0); LYMPH # 2.2 10*3/uL (1.3-4.4); LYMPH % 25.9 % (27.0-41.0); MEAN CELL VOLUME 88.4 fl (80.0-94.0); MEAN CORPUSCULAR HGB 28.3 pg (27.0-31.0); MEAN PLATELET VOLUME 9.9 fl (9.6-12.3); MONO # 0.6 10*3/uL (0.1-1.0); MONO % 7.4 % (3.0-9.0); NEUT # 5.4 10*3/uL (2.3-7.9); NEUT % 64.7 % (47.0-73.0); PLATELET COUNT AUTOMATED 289 10*3/uL (130-400); RED BLOOD COUNT 5.19 10*6/uL (4.50-5.90); RED CELL DISTRI WIDTH 14.5 % (0-14.5); WHITE BLOOD COUNT 8.3 10*3/uL (4.8-10.8)
[2019-10-06 10:03] LABS: ALBUMIN 3.7 gm/dl (3.1-4.5); ALKALINE PHOSPHATASE 101 U/L (45-117); BUN 15 mg/dl (7-24); CHLORIDE 100 mmol/L (98-107); CREATININE 1.21 mg/dL (0.70-1.30); POTASSIUM 3.7 mmol/L (3.5-5.1); SGOT/AST 29 IU/L (3-35); SGPT/ALT 38 U/L (12-78); SODIUM 136 mmol/L (136-145); TOTAL PROTEIN 8.6 gm/dL (6.4-8.2)
[2019-10-07 08:07] LABS: PROSTATE SPECIFIC AG FREE 1.03 ng/mL; PROSTATE SPECIFIC AG, SERUM 7.5 ng/mL (0.0-4.0)
== END | disposition home or self-care (01) ==
LOC: LAB 09:03
PROVIDERS: Nurse Practitioner Family
DX: I10 Essential (primary) hypertension (principal); R97.20 Elevated prostate specific antigen [PSA]

== ENCOUNTER → 2019-10-12 | Outpatient (CLI) | payer MEDICARE | END | disposition home or self-care (01) | LOC: CT 13:00 | DX: M16.0 Bilateral primary osteoarthritis of hip (principal); K83.1 Obstruction of bile duct; J94.8 Other specified pleural conditions; Z90.49 Acquired absence of other specified parts of digestive tract ==

== ENCOUNTER → 2019-10-27 | Outpatient (CLI) | payer MEDICARE ==
[2019-10-27 07:58] LABS: BASO % 0.5 % (0.0-1.0); EOS # 0.2 10*3/uL (0.0-0.4); HEMATOCRIT 45.2 % (42.0-52.0); HEMOGLOBIN 14.6 g/dl (14.0-18.0); LYMPH # 2.5 10*3/uL (1.3-4.4); LYMPH % 28.5 % (27.0-41.0); MEAN CELL VOLUME 87.9 fl (80.0-94.0); MEAN CORPUSCULAR HGB 28.4 pg (27.0-31.0); MEAN CORPUSCULAR HGB CONC 32.3 g/dl (33.0-37.0); MEAN PLATELET VOLUME 10.4 fl (9.6-12.3); MONO # 0.7 10*3/uL (0.1-1.0); MONO % 7.8 % (3.0-9.0); NEUT # 5.3 10*3/uL (2.3-7.9); NEUT % 60.9 % (47.0-73.0); PLATELET COUNT AUTOMATED 268 10*3/uL (130-400); RED BLOOD COUNT 5.14 10*6/uL (4.50-5.90); RED CELL DISTRI WIDTH 14.9 % (0-14.5); WHITE BLOOD COUNT 8.7 10*3/uL (4.8-10.8)
[2019-10-27 08:16] LABS: ALBUMIN 3.5 gm/dl (3.1-4.5); ALKALINE PHOSPHATASE 87 U/L (45-117); BUN 14 mg/dl (7-24); CHLORIDE 104 mmol/L (98-107); CHOLESTEROL 173 mg/dL (<200); CREATININE 1.04 mg/dL (0.70-1.30); HDL CHOLESTEROL 27 mg/dl (40-60); LDL CHOLESTEROL 110 mg/dL (9-159); POTASSIUM 3.6 mmol/L (3.5-5.1); SGOT/AST 28 IU/L (3-35); SGPT/ALT 41 U/L (12-78); SODIUM 139 mmol/L (136-145); TRIGLYCERIDES 179 mg/dl (<150); VLDL CHOLESTEROL 36 mg/dL (6-40)
== END | disposition home or self-care (01) ==
LOC: LAB 07:09
PROVIDERS: Nurse Practitioner Family
DX: I25.10 Atherosclerotic heart disease of native coronary artery without angina pectoris (principal); I10 Essential (primary) hypertension; D64.9 Anemia, unspecified; Z79.899 Other long term (current) drug therapy

== ENCOUNTER 2019-12-14 11:39 | Emergency (ER) | payer MEDICARE ==
[~2019-12-14] VITALS: Ht 185.4 cm; Wt 104.3 kg
[2019-12-14 11:45] VITALS: BP 157/85
[2019-12-14] MEDS ORDERED: CLINDAMYCIN HC300 MG PO (12:03)
== END 2019-12-14 12:18 | disposition home or self-care (01) ==
LOC: ED 11:39
DX: S80.812A Abrasion, left lower leg, initial encounter (principal); E11.9 Type 2 diabetes mellitus without complications; I10 Essential (primary) hypertension; I25.10 Atherosclerotic heart disease of native coronary artery without angina pectoris; M19.90 Unspecified osteoarthritis, unspecified site; E78.00 Pure hypercholesterolemia, unspecified; I48.91 Unspecified atrial fibrillation; Z88.0 Allergy status to penicillin; Z79.899 Other long term (current) drug therapy; Z79.01 Long term (current) use of anticoagulants; Z79.2 Long term (current) use of antibiotics; Z79.82 Long term (current) use of aspirin; Z90.49 Acquired absence of other specified parts of digestive tract; Z86.73 Personal history of transient ischemic attack (TIA), and cerebral infarction without residual deficits; Z98.61 Coronary angioplasty status; W01.0XXA Fall on same level from slipping, tripping and stumbling without subsequent striking against object, initial encounter; Y93.01 Activity, walking, marching and hiking; Y92.89 Other specified places as the place of occurrence of the external cause; Y99.8 Other external cause status

== ENCOUNTER 2019-12-25 10:26 | Observation (INO) | payer MEDICARE ==
[~2019-12-25] VITALS: Ht 185.4 cm; Wt 103.9 kg
[2019-12-25 10:38] VITALS: BP 166/92
[2019-12-25 10:43] LABS: BASO % 0.3 % (0.0-1.0); EOS # 0.1 10*3/uL (0.0-0.4); HEMATOCRIT 45.5 % (42.0-52.0); LYMPH # 2.1 10*3/uL (1.3-4.4); LYMPH % 22.2 % (27.0-41.0); MEAN CELL VOLUME 85.8 fl (80.0-94.0); MEAN CORPUSCULAR HGB 27.7 pg (27.0-31.0); MEAN CORPUSCULAR HGB CONC 32.3 g/dl (33.0-37.0); MEAN PLATELET VOLUME 9.6 fl (9.6-12.3); MONO # 0.6 10*3/uL (0.1-1.0); MONO % 6.9 % (3.0-9.0); NEUT # 6.4 10*3/uL (2.3-7.9); NEUT % 69.3 % (47.0-73.0); PLATELET COUNT AUTOMATED 313 10*3/uL (130-400); RED CELL DISTRI WIDTH 15.2 % (0-14.5); WHITE BLOOD COUNT 9.2 10*3/uL (4.8-10.8)
[2019-12-25 10:53] LABS: ACT PARTIAL THROMBO TIME 43.3 SECONDS (20.0-32.1); INTERNATIONAL NORM RATIO 1.8 (2.0-3.5)
[2019-12-25 11:02] LABS: ALBUMIN 3.9 gm/dl (3.1-4.5); ALKALINE PHOSPHATASE 120 U/L (45-117); BUN 13 mg/dl (7-24); CHLORIDE 102 mmol/L (98-107); POTASSIUM 3.5 mmol/L (3.5-5.1); SGOT/AST 38 IU/L (3-35); SGPT/ALT 58 U/L (12-78); SODIUM 138 mmol/L (136-145)
[2019-12-25 11:03] LABS: TROPONIN I < 0.015 ng/ml (<0.045)
[2019-12-25 11:11] VITALS: BP 149/79
[2019-12-25 12:45] VITALS: BP 160/78
--- NOTE | 2019-12-25 12:45 | NUR ---
A 74 YO MALE, admitted to , under the services of NEIL Kaiser DO with a diagnosis of CHEST PAIN W/HIGH RISK ETIOLOGY. Chief complaint is CHEST HEAVINESS AND TIGHTNESS FOR PAST FEW DAYS. Patient arrived via stretcher from ER. Monitor applied. Initial assessment completed. Vital signs taken and recorded. NEIL KAISER DO notified of admission to the unit. Orders received. See assessment for past medical history, medications and allergies. Patient and/or family oriented to unit. [facility]. Clothing/patient valuable form completed. ETTA LEE
[2019-12-25] MEDS ORDERED: VALSARTAN80 MG PO (13:23)
--- NOTE | 2019-12-25 13:24 | NUR ---
MED REC UPDATED/CORRECTED USING INFORMATION PROVIDED BY [facility].
--- NOTE | 2019-12-25 13:46 | NUR ---
[facility] NOTIFIED OF CONSULT RE: CHEST PAIN.
[2019-12-25 16:00] VITALS: BP 155/77
--- NOTE | 2019-12-25 19:34 | NUR ---
PATIENT RESTING IN BED WATCHING TV. STATES HE IS HAVING SOME CHEST HEAVINESS BUT NOTHING MORE THAN HE HAS BEEN, STATES IT HAS EASED UP SOME. DENIES SHORTNESS OF BREATH AT REST. REMINDED OF STRESS TEST IN THE MORNING. BED IN LOWEST POSITION, CALL LIGHT IN REACH
[2019-12-25 20:00] VITALS: BP 126/72
--- NOTE | 2019-12-25 22:34 | NUR ---
BELL STAFF CALLED. PATIENT'S HEART RATE IN THE 40'S AT TIMES. 60'S NOW. PATIENT IS SLEEPING, ARROUSES EASILY. DENIES ANY NEEDS.
--- NOTE | 2019-12-25 23:27 | NUR ---
PATIENT RESTING IN BED WITH NO NEEDS MADE. DENIES CHEST PAIN AT THIS TIME. BED IN LOWEST POSITION, CALL LIGHT IN REACH
[2019-12-26] VITALS: BP 111/64
--- NOTE | 2019-12-26 03:04 | NUR ---
PATIENT RESTING IN BED WITH EYES CLOSED. ARROUSES EASILY. DENIES CHEST PAIN OR SHORTNESS OF BREATH. BED IN LOWEST POSITION,CALL LIGHT IN REACH
[2019-12-26 04:00] VITALS: BP 125/66
[2019-12-26 06:02] LABS: BASO % 0.3 % (0.0-1.0); EOS # 0.2 10*3/uL (0.0-0.4); HEMATOCRIT 40.2 % (42.0-52.0); LYMPH # 2.2 10*3/uL (1.3-4.4); LYMPH % 27.5 % (27.0-41.0); MEAN CELL VOLUME 86.1 fl (80.0-94.0); MEAN CORPUSCULAR HGB 27.2 pg (27.0-31.0); MEAN CORPUSCULAR HGB CONC 31.6 g/dl (33.0-37.0); MEAN PLATELET VOLUME 10.3 fl (9.6-12.3); MONO # 0.7 10*3/uL (0.1-1.0); MONO % 8.2 % (3.0-9.0); NEUT # 4.9 10*3/uL (2.3-7.9); NEUT % 61.9 % (47.0-73.0); PLATELET COUNT AUTOMATED 268 10*3/uL (130-400); RED BLOOD COUNT 4.67 10*6/uL (4.50-5.90); RED CELL DISTRI WIDTH 15.1 % (0-14.5); WHITE BLOOD COUNT 7.9 10*3/uL (4.8-10.8)
[2019-12-26 06:10] LABS: ALBUMIN 3.2 gm/dl (3.1-4.5); ALKALINE PHOSPHATASE 96 U/L (45-117); BUN 19 mg/dl (7-24); CHLORIDE 101 mmol/L (98-107); CHOLESTEROL 160 mg/dL (<200); CREATININE 1.23 mg/dL (0.70-1.30); HDL CHOLESTEROL 24 mg/dl (40-60); LDL CHOLESTEROL 109 mg/dL (9-159); POTASSIUM 3.4 mmol/L (3.5-5.1); SGOT/AST 25 IU/L (3-35); SGPT/ALT 41 U/L (12-78); SODIUM 138 mmol/L (136-145); TOTAL PROTEIN 7.2 gm/dL (6.4-8.2); TRIGLYCERIDES 135 mg/dl (<150); VLDL CHOLESTEROL 27 mg/dL (6-40)
[2019-12-26 06:21] LABS: INTERNATIONAL NORM RATIO 1.8 (2.0-3.5)
--- NOTE | 2019-12-26 10:05 | NUR ---
INFORMED CONSENT SIGNED FOR LEXISCAN STRESS TEST WITH DR. EPSTEIN. RESTING EKG AFIB, HR 67, BP 140/68. PULSE OX 94% AND LUNGS CLEAR BILATERALLY. COMPLETED ONE MINUTE OF LEXISCAN PROTOCOL RECEIVNG LEXISCAN 0.4MG OVER [address] CHANGES NOTED WITH NO ARRHYTHMIAS. PT C/O FUNNY FEELING IN CHEST. LAST RECOVERY HR 88, BP 132/64. WAITING NUCLEAR SCANNING IN STABLE CONDITION.
--- NOTE | 2019-12-26 11:10 | NUR ---
PHYSICAL THERAPY Pt admitted from home with c/o chest pain with pleural effusion and subtheraputic INR. PT forrest received attempted to see pt, upon entering room pt was up ambulating independently. Further discussion with pt he feels that he is at his baseline has been up amb in room going to with no issues or LOB. Pt states he is fine and "does not need or want any therapy at this time" for possible discharge today to home. Pt at baseline no issues no skilled PT needed at this time will discontinue order. Louann Greco PT
--- NOTE | 2019-12-26 12:32 | NUR ---
Brick Kiln Burner in to talk to patient. Patient states lives at HOME with AND SON. There are 14 steps in the home. Physician: Toi PEGUERO Pharmacy: [facility] Home health services: NONE Patient's level of ADLs: INDEPENDENT Patient has working utilities: YES DME: NONE Follow-up physician's appointment after d/c: WILL BE MADE BY HOSPITALIST NURSE DIRECTOR ON DISCHARGE Does patient want to access PORTAL?: NO Discharge plan PT LIVES AT HOME WITH AND SON, DENIES HE HAS NEEDS AFTER DISCHARGE. PLANS TO RETURN HOME WHEN MEDICALLY STABLE. WILL CONTINUE TO FOLLOW. STATES HE DROVE HIMSELF HERE AND HIS CAR IS IN PARKING LOT.. KALYANI VAUGHAN
[2019-12-26] MEDS ORDERED: XARELTO20 M1 PO (14:11)
--- NOTE | 2019-12-26 14:31 | NUR ---
Discharge instructions reviewed with patient/family. Patient receptive and verbalizes understanding. Follow-up care arranged. Written instructions given to patient/family. JANE ORONA
== END 2019-12-26 14:31 | disposition home or self-care (01) ==
LOC: ED 10:26 → 4E 11:15 → EDHOLD 11:15 → 4E 11:46
PROVIDERS: Emergency Medicine; Student in an Organized Health Care Education/Training Program; ADMIT Family Medicine
DX: R07.89 Other chest pain (principal); R79.1 Abnormal coagulation profile; E83.41 Hypermagnesemia; R73.9 Hyperglycemia, unspecified; J90 Pleural effusion, not elsewhere classified; I48.91 Unspecified atrial fibrillation; I25.10 Atherosclerotic heart disease of native coronary artery without angina pectoris; I10 Essential (primary) hypertension; E78.5 Hyperlipidemia, unspecified; E55.9 Vitamin D deficiency, unspecified; M54.9 Dorsalgia, unspecified; M19.90 Unspecified osteoarthritis, unspecified site; E66.9 Obesity, unspecified

== ENCOUNTER 2020-02-06 15:38 | Inpatient (IN) | payer MEDICARE ==
[~2020-02-06] VITALS: Ht 185.4 cm; Wt 99.4 kg
[~2020-02-06 15:38] MED LIST changes: +VALSARTAN80 MG PO; +XARELTO20 M1 PO
[2020-02-06 15:45] VITALS: BP 130/82
[2020-02-06 16:42] LABS: BASO % 0.3 % (0.0-1.0); EOS # 0.1 10*3/uL (0.0-0.4); EOS % 0.8 % (1.0-4.0); HEMATOCRIT 43.3 % (42.0-52.0); LYMPH # 1.5 10*3/uL (1.3-4.4); LYMPH % 20.3 % (27.0-41.0); MEAN CELL VOLUME 83.9 fl (80.0-94.0); MEAN CORPUSCULAR HGB 27.1 pg (27.0-31.0); MEAN CORPUSCULAR HGB CONC 32.3 g/dl (33.0-37.0); MEAN PLATELET VOLUME 10.3 fl (9.6-12.3); MONO # 0.9 10*3/uL (0.1-1.0); MONO % 12.2 % (3.0-9.0); NEUT # 4.7 10*3/uL (2.3-7.9); NEUT % 66.1 % (47.0-73.0); PLATELET COUNT AUTOMATED 243 10*3/uL (130-400); RED BLOOD COUNT 5.16 10*6/uL (4.50-5.90); RED CELL DISTRI WIDTH 15.1 % (0-14.5); WHITE BLOOD COUNT 7.1 10*3/uL (4.8-10.8)
[2020-02-06 16:58] LABS: ALBUMIN 3.7 gm/dl (3.1-4.5); CREATININE 2.45 mg/dL (0.70-1.30); POTASSIUM 3.3 mmol/L (3.5-5.1); TOTAL PROTEIN 8.5 gm/dL (6.4-8.2)
[2020-02-06 19:55] VITALS: BP 116/92; BP 116/96
[2020-02-07] VITALS: BP 128/74
[2020-02-07 06:37] LABS: BASO % 0.3 % (0.0-1.0); EOS # 0.1 10*3/uL (0.0-0.4); EOS % 1.6 % (1.0-4.0); HEMATOCRIT 44.4 % (42.0-52.0); LYMPH # 1.3 10*3/uL (1.3-4.4); LYMPH % 22.2 % (27.0-41.0); MEAN CELL VOLUME 83.9 fl (80.0-94.0); MEAN CORPUSCULAR HGB CONC 32.2 g/dl (33.0-37.0); MEAN PLATELET VOLUME 10.8 fl (9.6-12.3); MONO # 0.9 10*3/uL (0.1-1.0); MONO % 14.9 % (3.0-9.0); NEUT # 3.5 10*3/uL (2.3-7.9); NEUT % 60.7 % (47.0-73.0); PLATELET COUNT AUTOMATED 264 10*3/uL (130-400); RED BLOOD COUNT 5.29 10*6/uL (4.50-5.90); WHITE BLOOD COUNT 5.7 10*3/uL (4.8-10.8)
[2020-02-07 07:09] LABS: ALBUMIN 3.5 gm/dl (3.1-4.5); CREATININE 1.79 mg/dL (0.70-1.30); POTASSIUM 3.1 mmol/L (3.5-5.1); TOTAL PROTEIN 8.1 gm/dL (6.4-8.2)
[2020-02-07 08:00] VITALS: BP 132/76
[2020-02-07 12:00] VITALS: BP 133/79
[2020-02-07 16:00] VITALS: BP 116/71
[2020-02-07 20:00] VITALS: BP 126/70
[2020-02-08] VITALS: BP 123/73
[2020-02-08 06:15] LABS: BASO % 0.3 % (0.0-1.0); EOS # 0.1 10*3/uL (0.0-0.4); EOS % 1.4 % (1.0-4.0); LYMPH % 30.7 % (27.0-41.0); MEAN CELL VOLUME 83.5 fl (80.0-94.0); MEAN CORPUSCULAR HGB 26.8 pg (27.0-31.0); MEAN PLATELET VOLUME 10.7 fl (9.6-12.3); NEUT # 3.4 10*3/uL (2.3-7.9); NEUT % 51.3 % (47.0-73.0); PLATELET COUNT AUTOMATED 295 10*3/uL (130-400); RED BLOOD COUNT 5.27 10*6/uL (4.50-5.90); RED CELL DISTRI WIDTH 15.3 % (0-14.5); WHITE BLOOD COUNT 6.5 10*3/uL (4.8-10.8)
[2020-02-08 06:33] LABS: ALBUMIN 3.5 gm/dl (3.1-4.5); CREATININE 2.95 mg/dL (0.70-1.30); POTASSIUM 3.6 mmol/L (3.5-5.1); TOTAL PROTEIN 8.1 gm/dL (6.4-8.2)
[2020-02-08 08:00] VITALS: BP 124/71
[2020-02-08 12:00] VITALS: BP 108/68
[2020-02-08 16:00] VITALS: BP 124/75
[2020-02-08 20:00] VITALS: BP 111/63
[2020-02-09] VITALS: BP 129/76
[2020-02-09 06:46] LABS: BASO % 0.3 % (0.0-1.0); EOS # 0.1 10*3/uL (0.0-0.4); EOS % 1.4 % (1.0-4.0); LYMPH % 24.9 % (27.0-41.0); MEAN CELL VOLUME 84.9 fl (80.0-94.0); MEAN CORPUSCULAR HGB 27.1 pg (27.0-31.0); MEAN PLATELET VOLUME 10.6 fl (9.6-12.3); MONO # 0.8 10*3/uL (0.1-1.0); MONO % 10.1 % (3.0-9.0); PLATELET COUNT AUTOMATED 238 10*3/uL (130-400); RED BLOOD COUNT 4.83 10*6/uL (4.50-5.90); RED CELL DISTRI WIDTH 15.2 % (0-14.5); WHITE BLOOD COUNT 7.9 10*3/uL (4.8-10.8)
[2020-02-09 07:12] LABS: ALBUMIN 3.2 gm/dl (3.1-4.5); CREATININE 1.49 mg/dL (0.70-1.30); POTASSIUM 3.7 mmol/L (3.5-5.1); TOTAL PROTEIN 7.3 gm/dL (6.4-8.2)
[2020-02-09 08:00] VITALS: BP 140/80
[2020-02-09] MEDS ORDERED: NORCO 5-325 TA1 EACH PO (10:38)
[2020-02-09 13:29] LABS: BILIRUBIN NEGATIVE (NEGATIVE); BLOOD NEGATIVE (NEGATIVE); CLARITY SL CLOUDY (CLEAR); COLOR YELLOW (YELLOW); GLUCOSE NEGATIVE (NEGATIVE); KETONE NEGATIVE (NEGATIVE); SPECIFIC GRAVITY 1.015 (1.005-1.030)
[2020-02-09 13:30] LABS: BACTERIA 4+; LEUKO ESTERASE NEGATIVE (NEGATIVE); NITRITE NEGATIVE (NEGATIVE); URIC ACID CRYSTALS 3+; UROBILINOGEN 0.2 E.U./dl (0.2-1.0)
== END 2020-02-09 12:25 | disposition home or self-care (01) | DRG 388 ==
LOC: ED 15:38 → EDHOLD 18:35 → 4E 18:35
PROVIDERS: Internal Medicine; Nurse Practitioner Family; ADMIT Internal Medicine
DX: K56.600 Partial intestinal obstruction, unspecified as to cause (principal); N17.0 Acute kidney failure with tubular necrosis; E44.1 Mild protein-calorie malnutrition; E87.1 Hypo-osmolality and hyponatremia; Z68.28 Body mass index [BMI] 28.0-28.9, adult; E86.0 Dehydration; R19.7 Diarrhea, unspecified; E87.6 Hypokalemia; I10 Essential (primary) hypertension; I25.10 Atherosclerotic heart disease of native coronary artery without angina pectoris; M19.91 Primary osteoarthritis, unspecified site; M45.9 Ankylosing spondylitis of unspecified sites in spine; K57.90 Diverticulosis of intestine, part unspecified, without perforation or abscess without bleeding; F17.220 Nicotine dependence, chewing tobacco, uncomplicated; G47.33 Obstructive sleep apnea (adult) (pediatric); E66.9 Obesity, unspecified; E78.1 Pure hyperglyceridemia; D64.9 Anemia, unspecified; E83.41 Hypermagnesemia; R74.0 Nonspecific elevation of levels of transaminase and lactic acid dehydrogenase [LDH]; Z71.6 Tobacco abuse counseling; I48.91 Unspecified atrial fibrillation; Z86.73 Personal history of transient ischemic attack (TIA), and cerebral infarction without residual deficits; Z90.49 Acquired absence of other specified parts of digestive tract; Z95.5 Presence of coronary angioplasty implant and graft; Z82.49 Family history of ischemic heart disease and other diseases of the circulatory system; Z80.3 Family history of malignant neoplasm of breast; Z80.1 Family history of malignant neoplasm of trachea, bronchus and lung; Z79.82 Long term (current) use of aspirin; Z79.01 Long term (current) use of anticoagulants; Z79.899 Other long term (current) drug therapy; Z88.0 Allergy status to penicillin

== ENCOUNTER → 2020-02-12 | Outpatient (CLI) | payer MEDICARE ==
[2020-02-12 10:11] LABS: ALBUMIN 3.4 gm/dl (3.1-4.5); ALKALINE PHOSPHATASE 142 U/L (45-117); BUN 14 mg/dl (7-24); CHLORIDE 104 mmol/L (98-107); CREATININE 1.09 mg/dL (0.70-1.30); POTASSIUM 3.4 mmol/L (3.5-5.1); SGOT/AST 28 IU/L (3-35); SGPT/ALT 78 U/L (12-78); SODIUM 139 mmol/L (136-145); TOTAL PROTEIN 7.8 gm/dL (6.4-8.2)
== END | disposition home or self-care (01) ==
LOC: LAB 09:15
PROVIDERS: Internal Medicine
DX: N17.0 Acute kidney failure with tubular necrosis (principal); R79.89 Other specified abnormal findings of blood chemistry

== ENCOUNTER → 2020-05-21 | Outpatient (CLI) | payer MEDICARE | END | disposition home or self-care (01) | LOC: COVID19 09:19 | PROVIDERS: ATTEND Nurse Practitioner Family | DX: R05 Cough (principal); Z20.828 Contact with and (suspected) exposure to other viral communicable diseases; R09.81 Nasal congestion; G47.33 Obstructive sleep apnea (adult) (pediatric); J15.9 Unspecified bacterial pneumonia; J98.11 Atelectasis ==

== ENCOUNTER → 2020-07-15 | Outpatient (CLI) | payer MEDICARE ==
[~2020-07-15] MED LIST changes: +COLACE100 MG PO
== END | disposition home or self-care (01) ==
LOC: RAD 13:50
PROVIDERS: ATTEND Nurse Practitioner Family
DX: M19.012 Primary osteoarthritis, left shoulder (principal); M85.622 Other cyst of bone, left upper arm; N63.0 Unspecified lump in unspecified breast; I48.0 Paroxysmal atrial fibrillation; I10 Essential (primary) hypertension; Q83.9 Congenital malformation of breast, unspecified; G47.33 Obstructive sleep apnea (adult) (pediatric)

== ENCOUNTER → 2020-07-18 | Outpatient (CLI) | payer MEDICARE | END | disposition home or self-care (01) | LOC: MAMMO 03:12 | PROVIDERS: ATTEND Nurse Practitioner Family | DX: N63.0 Unspecified lump in unspecified breast (principal); Q83.9 Congenital malformation of breast, unspecified; I48.0 Paroxysmal atrial fibrillation; I10 Essential (primary) hypertension; G47.33 Obstructive sleep apnea (adult) (pediatric); N64.89 Other specified disorders of breast ==

== ENCOUNTER → 2020-07-22 | Outpatient (CLI) | payer MEDICARE ==
[2020-07-22 15:25] LABS: BASO % 0.3 % (0.0-1.0); EOS # 0.2 10*3/uL (0.0-0.4); EOS % 1.7 % (1.0-4.0); HEMATOCRIT 41.7 % (42.0-52.0); LYMPH # 2.6 10*3/uL (1.3-4.4); LYMPH % 28.7 % (27.0-41.0); MEAN CELL VOLUME 85.3 fl (80.0-94.0); MEAN CORPUSCULAR HGB 26.4 pg (27.0-31.0); MEAN CORPUSCULAR HGB CONC 30.9 g/dl (33.0-37.0); MEAN PLATELET VOLUME 9.6 fl (9.6-12.3); MONO # 0.7 10*3/uL (0.1-1.0); NEUT # 5.6 10*3/uL (2.3-7.9); NEUT % 61.1 % (47.0-73.0); PLATELET COUNT AUTOMATED 241 10*3/uL (130-400); RED BLOOD COUNT 4.89 10*6/uL (4.50-5.90); RED CELL DISTRI WIDTH 16.2 % (0-14.5); WHITE BLOOD COUNT 9.1 10*3/uL (4.8-10.8)
[2020-07-22 15:52] LABS: ALBUMIN 3.9 gm/dl (3.1-4.5); BUN 16 mg/dl (7-24); CHLORIDE 106 mmol/L (98-107); POTASSIUM 4.1 mmol/L (3.5-5.1); SODIUM 139 mmol/L (136-145)
[2020-07-22 15:57] LABS: ALKALINE PHOSPHATASE 109 U/L (45-117); CREATININE 1.29 mg/dL (0.70-1.30); SGOT/AST 27 IU/L (3-35); SGPT/ALT 45 U/L (12-78)
== END | disposition home or self-care (01) ==
LOC: LAB 14:57
PROVIDERS: ATTEND Surgery
DX: J92.9 Pleural plaque without asbestos (principal); N63.20 Unspecified lump in the left breast, unspecified quadrant; I10 Essential (primary) hypertension

== ENCOUNTER → 2020-07-24 | Outpatient (CLI) | payer MEDICARE | LOC: COVID19 13:36 | PROVIDERS: ATTEND Surgery | DX: Z01.812 Encounter for preprocedural laboratory examination (principal); Z20.828 Contact with and (suspected) exposure to other viral communicable diseases ==

== ENCOUNTER → 2020-07-29 | Day surgery (SDC) | payer MEDICARE ==
[2020-07-25 14:17] VITALS: BP 154/88
[~2020-07-29] VITALS: Ht 185.4 cm; Wt 108.9 kg
[2020-07-29 06:55] VITALS: BP 127/79
[2020-07-29 07:09] LABS: ACT PARTIAL THROMBO TIME 32.6 SECONDS (20.0-32.1)
[2020-07-29 09:30] VITALS: BP 148/78
[2020-07-29 09:45] VITALS: BP 145/76
[2020-07-29 10:00] VITALS: BP 149/95
[2020-07-29 10:15] VITALS: BP 156/91
[2020-07-29 10:30] VITALS: BP 154/79
== END ==
LOC: SDC 07-25 13:15
PROVIDERS: Nurse Anesthetist, Certified Registered; ATTEND Surgery
DX: C50.922 Malignant neoplasm of unspecified site of left male breast (principal); N63.20 Unspecified lump in the left breast, unspecified quadrant; I10 Essential (primary) hypertension; I25.10 Atherosclerotic heart disease of native coronary artery without angina pectoris; Z86.73 Personal history of transient ischemic attack (TIA), and cerebral infarction without residual deficits; J44.9 Chronic obstructive pulmonary disease, unspecified; Z95.5 Presence of coronary angioplasty implant and graft; M19.90 Unspecified osteoarthritis, unspecified site; Z79.01 Long term (current) use of anticoagulants; Z79.899 Other long term (current) drug therapy

== ENCOUNTER → 2020-08-19 | Outpatient (CLI) | payer MEDICARE ==
[2020-08-19 16:47] LABS: CREATININE 1.09 mg/dL (0.70-1.30)
== END | disposition home or self-care (01) ==
LOC: LAB 16:03
PROVIDERS: ATTEND Nurse Practitioner
DX: K57.93 Diverticulitis of intestine, part unspecified, without perforation or abscess with bleeding (principal)

== ENCOUNTER → 2020-08-20 | Outpatient (CLI) | payer MEDICARE | END | disposition home or self-care (01) | LOC: CT 00:10 | PROVIDERS: ATTEND Surgery | DX: K40.90 Unilateral inguinal hernia, without obstruction or gangrene, not specified as recurrent (principal); M62.08 Separation of muscle (nontraumatic), other site; J90 Pleural effusion, not elsewhere classified; N63.0 Unspecified lump in unspecified breast; Z90.49 Acquired absence of other specified parts of digestive tract; Z93.3 Colostomy status ==

== ENCOUNTER → 2020-09-03 | Outpatient (CLI) | payer MEDICARE | END | disposition home or self-care (01) | LOC: CT 14:43 | PROVIDERS: ATTEND Internal Medicine Hematology & Oncology | DX: J98.11 Atelectasis (principal); J91.8 Pleural effusion in other conditions classified elsewhere; C50.022 Malignant neoplasm of nipple and areola, left male breast; R59.1 Generalized enlarged lymph nodes; Z90.12 Acquired absence of left breast and nipple ==

== ENCOUNTER 2020-09-07 12:11 | Emergency (ER) | payer MEDICARE ==
[~2020-09-07] VITALS: Wt 111.1 kg
[2020-09-07 12:26] VITALS: BP 155/80
== END 2020-09-07 14:39 | disposition home or self-care (01) ==
LOC: ED 12:11
DX: S86.812A Strain of other muscle(s) and tendon(s) at lower leg level, left leg, initial encounter (principal); Z90.49 Acquired absence of other specified parts of digestive tract; Z98.890 Other specified postprocedural states; Z79.899 Other long term (current) drug therapy; Z79.82 Long term (current) use of aspirin; Z88.0 Allergy status to penicillin; X50.1XXA Overexertion from prolonged static or awkward postures, initial encounter; Y93.01 Activity, walking, marching and hiking; Y92.098 Other place in other non-institutional residence as the place of occurrence of the external cause; Y99.9 Unspecified external cause status

== ENCOUNTER 2020-09-14 11:02 | Emergency (ER) | payer MEDICARE ==
[~2020-09-14] VITALS: Ht 185.4 cm; Wt 110.2 kg
[2020-09-14 11:10] VITALS: BP 147/53
[2020-09-14 11:40] LABS: BASO % 0.4 % (0.0-1.0); EOS # 0.2 10*3/uL (0.0-0.4); EOS % 2.3 % (1.0-4.0); LYMPH # 1.7 10*3/uL (1.3-4.4); LYMPH % 21.1 % (27.0-41.0); MEAN CELL VOLUME 85.3 fl (80.0-94.0); MEAN CORPUSCULAR HGB 26.4 pg (27.0-31.0); MEAN PLATELET VOLUME 10.1 fl (9.6-12.3); MONO # 0.8 10*3/uL (0.1-1.0); MONO % 9.1 % (3.0-9.0); NEUT # 5.5 10*3/uL (2.3-7.9); NEUT % 66.9 % (47.0-73.0); PLATELET COUNT AUTOMATED 302 10*3/uL (130-400); RED BLOOD COUNT 4.69 10*6/uL (4.50-5.90); RED CELL DISTRI WIDTH 15.8 % (0-14.5); WHITE BLOOD COUNT 8.2 10*3/uL (4.8-10.8)
[2020-09-14 11:56] LABS: ALBUMIN 3.7 gm/dl (3.1-4.5); ALKALINE PHOSPHATASE 99 U/L (45-117); BUN 16 mg/dl (7-24); CHLORIDE 107 mmol/L (98-107); CREATININE 1.33 mg/dL (0.70-1.30); POTASSIUM 4.1 mmol/L (3.5-5.1); SGOT/AST 44 IU/L (3-35); SGPT/ALT 40 U/L (12-78); SODIUM 137 mmol/L (136-145); TOTAL PROTEIN 8.2 gm/dL (6.4-8.2)
[2020-09-14] MEDS ORDERED: CLINDAMYCIN HC300 MG PO (12:04)
== END 2020-09-14 12:20 | disposition home or self-care (01) ==
LOC: ED 11:02
PROVIDERS: Nurse Practitioner Family
DX: L03.116 Cellulitis of left lower limb (principal); I10 Essential (primary) hypertension; I25.10 Atherosclerotic heart disease of native coronary artery without angina pectoris; M19.90 Unspecified osteoarthritis, unspecified site; E78.00 Pure hypercholesterolemia, unspecified; I48.91 Unspecified atrial fibrillation; Z88.0 Allergy status to penicillin; Z91.048 Other nonmedicinal substance allergy status; Z79.899 Other long term (current) drug therapy; Z79.82 Long term (current) use of aspirin; Z90.49 Acquired absence of other specified parts of digestive tract; Z95.5 Presence of coronary angioplasty implant and graft; Z86.73 Personal history of transient ischemic attack (TIA), and cerebral infarction without residual deficits

== ENCOUNTER → 2020-09-23 | Outpatient (CLI) | payer MEDICARE | END | disposition home or self-care (01) | LOC: RESCLI 00:44 | PROVIDERS: ATTEND Internal Medicine Nephrology | DX: L03.116 Cellulitis of left lower limb (principal); S80.212D Abrasion, left knee, subsequent encounter; I48.91 Unspecified atrial fibrillation; E78.5 Hyperlipidemia, unspecified; I10 Essential (primary) hypertension; D64.9 Anemia, unspecified; Z12.5 Encounter for screening for malignant neoplasm of prostate; C50.022 Malignant neoplasm of nipple and areola, left male breast; R97.20 Elevated prostate specific antigen [PSA]; G47.00 Insomnia, unspecified; Z79.899 Other long term (current) drug therapy; Z98.890 Other specified postprocedural states; Z96.89 Presence of other specified functional implants; Z17.0 Estrogen receptor positive status [ER+]; X58.XXXD Exposure to other specified factors, subsequent encounter ==

== ENCOUNTER → 2020-09-30 | Outpatient (CLI) | payer MEDICARE | END | disposition home or self-care (01) | LOC: RESCLI 01:00 | PROVIDERS: ATTEND Internal Medicine Nephrology | DX: S80.212D Abrasion, left knee, subsequent encounter (principal); I48.91 Unspecified atrial fibrillation; I10 Essential (primary) hypertension; E78.5 Hyperlipidemia, unspecified; L03.116 Cellulitis of left lower limb; J44.9 Chronic obstructive pulmonary disease, unspecified; C50.922 Malignant neoplasm of unspecified site of left male breast; Z79.82 Long term (current) use of aspirin; Z79.899 Other long term (current) drug therapy; Z98.890 Other specified postprocedural states; Z88.0 Allergy status to penicillin; X58.XXXD Exposure to other specified factors, subsequent encounter ==

== ENCOUNTER → 2020-10-15 | Outpatient (CLI) | payer MEDICARE | END | disposition home or self-care (01) | LOC: RESCLI 01:45 | PROVIDERS: ATTEND Student in an Organized Health Care Education/Training Program | DX: L03.116 Cellulitis of left lower limb (principal); I10 Essential (primary) hypertension; I48.91 Unspecified atrial fibrillation; R73.09 Other abnormal glucose; S80.212D Abrasion, left knee, subsequent encounter; F17.220 Nicotine dependence, chewing tobacco, uncomplicated; Z71.6 Tobacco abuse counseling; Z79.899 Other long term (current) drug therapy; Z79.82 Long term (current) use of aspirin; Z95.828 Presence of other vascular implants and grafts; Z98.890 Other specified postprocedural states; Z88.0 Allergy status to penicillin ==

== ENCOUNTER → 2020-10-17 | Outpatient (CLI) | payer MEDICARE ==
[2020-10-17 10:06] LABS: BASO % 0.3 % (0.0-1.0); EOS # 0.1 10*3/uL (0.0-0.4); HEMATOCRIT 44.5 % (42.0-52.0); LYMPH # 1.8 10*3/uL (1.3-4.4); LYMPH % 25.6 % (27.0-41.0); MEAN CELL VOLUME 87.6 fl (80.0-94.0); MEAN CORPUSCULAR HGB 27.2 pg (27.0-31.0); MEAN PLATELET VOLUME 10.1 fl (9.6-12.3); MONO # 0.6 10*3/uL (0.1-1.0); MONO % 7.9 % (3.0-9.0); NEUT # 4.5 10*3/uL (2.3-7.9); NEUT % 63.9 % (47.0-73.0); PLATELET COUNT AUTOMATED 228 10*3/uL (130-400); RED BLOOD COUNT 5.08 10*6/uL (4.50-5.90); RED CELL DISTRI WIDTH 15.1 % (0-14.5)
[2020-10-17 10:31] LABS: ALBUMIN 3.5 gm/dl (3.1-4.5); ALKALINE PHOSPHATASE 86 U/L (45-117); BUN 15 mg/dl (7-24); CHLORIDE 107 mmol/L (98-107); CREATININE 1.32 mg/dL (0.70-1.30); POTASSIUM 3.7 mmol/L (3.5-5.1); SGOT/AST 29 IU/L (3-35); SGPT/ALT 42 U/L (12-78); SODIUM 139 mmol/L (136-145); TOTAL PROTEIN 7.9 gm/dL (6.4-8.2)
[2020-10-17 10:35] LABS: ACT PARTIAL THROMBO TIME 41.3 SECONDS (20.0-32.1); INTERNATIONAL NORM RATIO 1.2 (2.0-3.5)
== END | disposition home or self-care (01) ==
LOC: LAB 09:40
PROVIDERS: ATTEND Urology
DX: Z01.818 Encounter for other preprocedural examination (principal); J90 Pleural effusion, not elsewhere classified; J43.9 Emphysema, unspecified; I48.91 Unspecified atrial fibrillation; Z98.890 Other specified postprocedural states; Z79.01 Long term (current) use of anticoagulants

== ENCOUNTER → 2020-11-11 | Outpatient (CLI) | payer MEDICARE | END | disposition home or self-care (01) | LOC: CT 10:59 | PROVIDERS: ATTEND Urology | DX: R31.9 Hematuria, unspecified (principal); J90 Pleural effusion, not elsewhere classified; Z85.3 Personal history of malignant neoplasm of breast ==

== ENCOUNTER → 2020-11-27 | Outpatient (CLI) | payer MEDICARE ==
[2020-11-27 15:55] LABS: BASO % 0.4 % (0.0-1.0); EOS # 0.2 10*3/uL (0.0-0.4); HEMATOCRIT 43.7 % (42.0-52.0); LYMPH % 26.7 % (27.0-41.0); MEAN CELL VOLUME 87.1 fl (80.0-94.0); MEAN CORPUSCULAR HGB 27.1 pg (27.0-31.0); MEAN CORPUSCULAR HGB CONC 31.1 g/dl (33.0-37.0); MEAN PLATELET VOLUME 10.4 fl (9.6-12.3); MONO # 0.6 10*3/uL (0.1-1.0); MONO % 8.7 % (3.0-9.0); NEUT # 4.5 10*3/uL (2.3-7.9); NEUT % 61.8 % (47.0-73.0); PLATELET COUNT AUTOMATED 231 10*3/uL (130-400); RED BLOOD COUNT 5.02 10*6/uL (4.50-5.90); RED CELL DISTRI WIDTH 15.2 % (0-14.5); WHITE BLOOD COUNT 7.3 10*3/uL (4.8-10.8)
[2020-11-27 15:59] LABS: BILIRUBIN Negative (Negative); BLOOD Negative (Negative); CLARITY Clear (Clear); COLOR Yellow (Yellow); GLUCOSE Negative (Negative); KETONE Negative (Negative); LEUKO ESTERASE Negative (Negative); NITRITE Negative (Negative); UROBILINOGEN 0.2 E.U./dl (0.0-1.0)
[2020-11-27 16:25] LABS: ALBUMIN 3.9 gm/dl (3.1-4.5); ALKALINE PHOSPHATASE 76 U/L (45-117); BUN 21 mg/dl (7-24); CHLORIDE 105 mmol/L (98-107); CREATININE 1.29 mg/dL (0.70-1.30); POTASSIUM 3.9 mmol/L (3.5-5.1); SGOT/AST 28 IU/L (3-35); SGPT/ALT 43 U/L (12-78); SODIUM 139 mmol/L (136-145); TOTAL PROTEIN 8.1 gm/dL (6.4-8.2)
[2020-11-27 16:50] LABS: EPITHELIAL CELLS 0-2; RBC 0-2 rbc/hpf (0-2); WBC 0-2 wbc/hpf (0-5)
[2020-11-28 06:07] LABS: HEP B CORE AB, IGM Negative (Negative); HEPATITIS B SURFACE AG Negative (Negative); HEPATITIS C VIRUS ANTIBODY <0.1 s/co (0.0-0.9)
[2020-11-28 11:07] LABS: CREATININE,URINE 81.8 mg/dL (Not Estab.)
== END | disposition home or self-care (01) ==
LOC: RESCLI 14:28
PROVIDERS: Internal Medicine; ATTEND Internal Medicine Nephrology
DX: L03.116 Cellulitis of left lower limb (principal); I10 Essential (primary) hypertension; D69.2 Other nonthrombocytopenic purpura; E11.9 Type 2 diabetes mellitus without complications; Z72.89 Other problems related to lifestyle; Z79.899 Other long term (current) drug therapy

== ENCOUNTER → 2020-12-04 | Outpatient (CLI) | payer MEDICARE | LOC: RESCLI 00:51 | PROVIDERS: ATTEND Student in an Organized Health Care Education/Training Program | DX: I48.0 Paroxysmal atrial fibrillation (principal); I10 Essential (primary) hypertension; E11.9 Type 2 diabetes mellitus without complications; J44.9 Chronic obstructive pulmonary disease, unspecified; R60.0 Localized edema; E78.5 Hyperlipidemia, unspecified; G89.29 Other chronic pain; E66.9 Obesity, unspecified; G47.33 Obstructive sleep apnea (adult) (pediatric); C50.922 Malignant neoplasm of unspecified site of left male breast; L03.116 Cellulitis of left lower limb; S80.212D Abrasion, left knee, subsequent encounter; F17.220 Nicotine dependence, chewing tobacco, uncomplicated; Z79.01 Long term (current) use of anticoagulants; X58.XXXD Exposure to other specified factors, subsequent encounter ==

== ENCOUNTER → 2021-01-28 | Outpatient (CLI) | payer MEDICARE | END | disposition home or self-care (01) | LOC: RESCLI 00:56 | PROVIDERS: ATTEND Family Medicine | DX: I73.9 Peripheral vascular disease, unspecified (principal); L03.116 Cellulitis of left lower limb; I10 Essential (primary) hypertension; E78.5 Hyperlipidemia, unspecified; J44.9 Chronic obstructive pulmonary disease, unspecified; I48.91 Unspecified atrial fibrillation; C50.922 Malignant neoplasm of unspecified site of left male breast; G47.30 Sleep apnea, unspecified; R97.20 Elevated prostate specific antigen [PSA]; Z79.82 Long term (current) use of aspirin; Z79.899 Other long term (current) drug therapy; Z88.0 Allergy status to penicillin; Z72.89 Other problems related to lifestyle ==

== ENCOUNTER → 2021-02-03 | Outpatient (CLI) | payer MEDICARE ==
[2021-02-04 10:07] LABS: PROSTATE SPECIFIC AG FREE 0.56 ng/mL
== END | disposition home or self-care (01) ==
LOC: US 11:32
PROVIDERS: ATTEND Urology
DX: C61 Malignant neoplasm of prostate (principal)

== ENCOUNTER → 2021-02-06 | Outpatient (CLI) | payer MEDICARE | END | disposition home or self-care (01) | LOC: US 13:30 | PROVIDERS: ATTEND Internal Medicine | DX: I73.9 Peripheral vascular disease, unspecified (principal) ==

== ENCOUNTER 2021-03-01 18:00 | Emergency (ER) | payer MEDICARE ==
[~2021-03-01] VITALS: Ht 185.4 cm; Wt 108.9 kg
[2021-03-01 18:18] VITALS: BP 165/87
[2021-03-01] MEDS ORDERED: DOXYCYCLINE100 M3 PO (18:44)
== END 2021-03-01 18:56 | disposition home or self-care (01) ==
LOC: ED 18:00
DX: I83.029 Varicose veins of left lower extremity with ulcer of unspecified site (principal); L97.929 Non-pressure chronic ulcer of unspecified part of left lower leg with unspecified severity; L03.116 Cellulitis of left lower limb; I25.10 Atherosclerotic heart disease of native coronary artery without angina pectoris; I10 Essential (primary) hypertension; E78.5 Hyperlipidemia, unspecified; I48.91 Unspecified atrial fibrillation; I73.9 Peripheral vascular disease, unspecified; F17.220 Nicotine dependence, chewing tobacco, uncomplicated; Z86.73 Personal history of transient ischemic attack (TIA), and cerebral infarction without residual deficits; Z88.0 Allergy status to penicillin; Z91.048 Other nonmedicinal substance allergy status; Z79.899 Other long term (current) drug therapy; Z79.2 Long term (current) use of antibiotics; Z79.82 Long term (current) use of aspirin; Z90.49 Acquired absence of other specified parts of digestive tract; Z95.5 Presence of coronary angioplasty implant and graft

== ENCOUNTER → 2021-03-27 | Outpatient (CLI) | payer MEDICARE | END | disposition home or self-care (01) | LOC: RESCLI 00:43 | PROVIDERS: ATTEND Internal Medicine | DX: E11.9 Type 2 diabetes mellitus without complications (principal); I10 Essential (primary) hypertension; G89.29 Other chronic pain; I48.0 Paroxysmal atrial fibrillation; E66.9 Obesity, unspecified; E78.5 Hyperlipidemia, unspecified; F17.220 Nicotine dependence, chewing tobacco, uncomplicated; Z79.899 Other long term (current) drug therapy; Z88.0 Allergy status to penicillin; Z98.890 Other specified postprocedural states ==

== ENCOUNTER → 2021-04-16 | Day surgery (SDC) | payer MEDICARE ==
[~2021-04-16] VITALS: Ht 185.4 cm; Wt 108.9 kg
[2021-04-16 07:20] VITALS: BP 175/76
[2021-04-16 08:44] VITALS: BP 140/85
[2021-04-16 09:00] VITALS: BP 169/82
[2021-04-16 09:08] VITALS: BP 184/87
== END | disposition home or self-care (01) ==
LOC: SDC 04-11 11:00
PROVIDERS: ATTEND Ophthalmology
DX: H25.811 Combined forms of age-related cataract, right eye (principal); I10 Essential (primary) hypertension; I25.10 Atherosclerotic heart disease of native coronary artery without angina pectoris; M19.90 Unspecified osteoarthritis, unspecified site; I48.91 Unspecified atrial fibrillation; Z95.5 Presence of coronary angioplasty implant and graft; Z86.73 Personal history of transient ischemic attack (TIA), and cerebral infarction without residual deficits; Z85.3 Personal history of malignant neoplasm of breast; Z20.822 Contact with and (suspected) exposure to COVID-19; Z88.0 Allergy status to penicillin; Z79.82 Long term (current) use of aspirin; Z79.899 Other long term (current) drug therapy

== ENCOUNTER → 2021-04-25 | Outpatient (CLI) | payer MEDICARE | END | disposition home or self-care (01) | LOC: CT 04-23 09:00 | PROVIDERS: ATTEND Nurse Practitioner Adult Health | DX: C50.022 Malignant neoplasm of nipple and areola, left male breast (principal); R59.0 Localized enlarged lymph nodes; K76.0 Fatty (change of) liver, not elsewhere classified; I25.10 Atherosclerotic heart disease of native coronary artery without angina pectoris; Z90.12 Acquired absence of left breast and nipple ==

== ENCOUNTER → 2021-05-19 | Outpatient (CLI) | payer MEDICARE ==
[2021-05-19 12:02] LABS: BASO % 0.3 % (0.0-1.0); EOS # 0.1 10*3/uL (0.0-0.4); EOS % 1.2 % (1.0-4.0); HEMATOCRIT 42.4 % (42.0-52.0); LYMPH # 1.8 10*3/uL (1.3-4.4); LYMPH % 23.2 % (27.0-41.0); MEAN CELL VOLUME 90.8 fl (80.0-94.0); MEAN CORPUSCULAR HGB 28.9 pg (27.0-31.0); MEAN CORPUSCULAR HGB CONC 31.8 g/dl (33.0-37.0); MEAN PLATELET VOLUME 11.1 fl (9.6-12.3); MONO # 0.5 10*3/uL (0.1-1.0); MONO % 6.9 % (3.0-9.0); NEUT # 5.2 10*3/uL (2.3-7.9); PLATELET COUNT AUTOMATED 196 10*3/uL (130-400); RED BLOOD COUNT 4.67 10*6/uL (4.50-5.90); RED CELL DISTRI WIDTH 14.9 % (0-14.5); WHITE BLOOD COUNT 7.6 10*3/uL (4.8-10.8)
[2021-05-19 12:39] LABS: ALBUMIN 3.4 gm/dl (3.1-4.5); CREATININE 1.41 mg/dL (0.70-1.30); POTASSIUM 3.9 mmol/L (3.5-5.1); TOTAL PROTEIN 7.4 gm/dL (6.4-8.2)
[2021-05-19 12:44] LABS: CHOLESTEROL 92 mg/dL (<200); LDL CHOLESTEROL 37 mg/dL (9-159); TRIGLYCERIDES 151 mg/dl (<150)
== END | disposition home or self-care (01) ==
LOC: LAB 11:35
PROVIDERS: Student in an Organized Health Care Education/Training Program; ATTEND Urology
DX: C61 Malignant neoplasm of prostate (principal); I10 Essential (primary) hypertension; R53.83 Other fatigue; E11.9 Type 2 diabetes mellitus without complications; E78.5 Hyperlipidemia, unspecified

== ENCOUNTER → 2021-06-18 | Day surgery (SDC) | payer MEDICARE ==
[~2021-06-18] VITALS: Ht 185.4 cm; Wt 108.9 kg
[2021-06-18 08:43] VITALS: BP 172/102
[2021-06-18 09:41] VITALS: BP 176/61
[2021-06-18 09:55] VITALS: BP 179/99
[2021-06-18 10:09] VITALS: BP 170/88
== END | disposition home or self-care (01) ==
LOC: SDC 06-13 13:15
PROVIDERS: ATTEND Ophthalmology
DX: H25.812 Combined forms of age-related cataract, left eye (principal); I10 Essential (primary) hypertension; I25.10 Atherosclerotic heart disease of native coronary artery without angina pectoris; M19.90 Unspecified osteoarthritis, unspecified site; Z95.5 Presence of coronary angioplasty implant and graft; Z86.73 Personal history of transient ischemic attack (TIA), and cerebral infarction without residual deficits; Z99.89 Dependence on other enabling machines and devices; Z79.82 Long term (current) use of aspirin; Z79.01 Long term (current) use of anticoagulants; Z79.899 Other long term (current) drug therapy; Z88.0 Allergy status to penicillin; Z91.048 Other nonmedicinal substance allergy status

== ENCOUNTER 2021-07-01 22:12 | Inpatient (IN) | payer MEDICARE ==
[~2021-07-01] VITALS: Ht 185.4 cm; Wt 106.1 kg
[2021-07-01 22:14] VITALS: BP 168/81
[2021-07-01 22:31] LABS: BASO % 0.1 % (0.0-1.0); EOS # 0.1 10*3/uL (0.0-0.4); EOS % 1.1 % (1.0-4.0); HEMATOCRIT 36.9 % (42.0-52.0); LYMPH # 2.3 10*3/uL (1.3-4.4); LYMPH % 25.9 % (27.0-41.0); MEAN CELL VOLUME 89.6 fl (80.0-94.0); MEAN CORPUSCULAR HGB 29.6 pg (27.0-31.0); MEAN CORPUSCULAR HGB CONC 33.1 g/dl (33.0-37.0); MEAN PLATELET VOLUME 10.3 fl (9.6-12.3); MONO % 11.7 % (3.0-9.0); NEUT # 5.4 10*3/uL (2.3-7.9); NEUT % 60.9 % (47.0-73.0); PLATELET COUNT AUTOMATED 183 10*3/uL (130-400); RED BLOOD COUNT 4.12 10*6/uL (4.50-5.90); RED CELL DISTRI WIDTH 14.3 % (0-14.5); WHITE BLOOD COUNT 8.9 10*3/uL (4.8-10.8)
[2021-07-01 22:49] LABS: ALKALINE PHOSPHATASE 60 U/L (45-117); BUN 22 mg/dl (7-24); CHLORIDE 107 mmol/L (98-107); CREATININE 1.25 mg/dL (0.70-1.30); POTASSIUM 3.4 mmol/L (3.5-5.1); SGOT/AST 28 IU/L (3-35); SGPT/ALT 31 U/L (12-78); SODIUM 141 mmol/L (136-145); TOTAL PROTEIN 6.7 gm/dL (6.4-8.2)
[2021-07-01 22:53] LABS: BILIRUBIN Negative (Negative); BLOOD Negative (Negative); CLARITY Clear (Clear); COLOR Yellow (Yellow); GLUCOSE Negative (Negative); KETONE Trace (Negative); LEUKO ESTERASE 1+ (Negative); NITRITE Negative (Negative); SPECIFIC GRAVITY 1.025 (1.001-1.030)
[2021-07-01 23:01] LABS: CALCIUM OXALATE CRYSTALS Trace
[2021-07-02 01:10] VITALS: BP 166/95
[2021-07-02 02:32] VITALS: BP 149/99
[2021-07-02 04:15] VITALS: BP 145/84
[2021-07-02 04:16] LABS: BASO % 0.2 % (0.0-1.0); EOS # 0.1 10*3/uL (0.0-0.4); EOS % 0.7 % (1.0-4.0); HEMATOCRIT 38.7 % (42.0-52.0); LYMPH # 2.4 10*3/uL (1.3-4.4); MEAN CELL VOLUME 90.8 fl (80.0-94.0); MEAN CORPUSCULAR HGB 29.1 pg (27.0-31.0); MEAN PLATELET VOLUME 10.6 fl (9.6-12.3); MONO # 0.8 10*3/uL (0.1-1.0); MONO % 8.7 % (3.0-9.0); NEUT # 6.2 10*3/uL (2.3-7.9); NEUT % 64.9 % (47.0-73.0); PLATELET COUNT AUTOMATED 176 10*3/uL (130-400); RED BLOOD COUNT 4.26 10*6/uL (4.50-5.90); RED CELL DISTRI WIDTH 14.5 % (0-14.5); WHITE BLOOD COUNT 9.5 10*3/uL (4.8-10.8)
[2021-07-02 04:31] LABS: BUN 19 mg/dl (7-24); CHLORIDE 109 mmol/L (98-107); CREATININE 1.16 mg/dL (0.70-1.30); POTASSIUM 3.9 mmol/L (3.5-5.1); SODIUM 141 mmol/L (136-145)
== END 2021-07-02 04:08 | disposition short-term general hospital (02) | DRG 299 ==
LOC: ED 22:12 → EDHOLD 07-02 01:05
PROVIDERS: Internal Medicine; ADMIT Family Medicine; ATTEND Family Medicine
DX: I82.401 Acute embolism and thrombosis of unspecified deep veins of right lower extremity (principal); I61.9 Nontraumatic intracerebral hemorrhage, unspecified; E44.0 Moderate protein-calorie malnutrition; N30.00 Acute cystitis without hematuria; I25.10 Atherosclerotic heart disease of native coronary artery without angina pectoris; R73.9 Hyperglycemia, unspecified; E83.41 Hypermagnesemia; Z20.822 Contact with and (suspected) exposure to COVID-19; R29.6 Repeated falls; E87.6 Hypokalemia; Z68.31 Body mass index [BMI] 31.0-31.9, adult; Z90.49 Acquired absence of other specified parts of digestive tract; Z82.49 Family history of ischemic heart disease and other diseases of the circulatory system; Z80.3 Family history of malignant neoplasm of breast; Z80.1 Family history of malignant neoplasm of trachea, bronchus and lung; Z88.0 Allergy status to penicillin; Z88.8 Allergy status to other drugs, medicaments and biological substances; Z79.82 Long term (current) use of aspirin; Z79.899 Other long term (current) drug therapy; Z95.5 Presence of coronary angioplasty implant and graft

== ENCOUNTER → 2021-08-11 | Outpatient (CLI) | payer MEDICARE ==
[~2021-08-11] MED LIST changes: +ASMANEX220 MC4 IH; +COZAAR100 MG PO; +LIPITOR40 MG PO; +POTASSIUM CHLO10 MEQ PO; +TAMOXIFEN CITRA20 MG PO; +XARE20MG PO
== END | disposition home or self-care (01) ==
LOC: RESCLI 01:22
PROVIDERS: ATTEND Internal Medicine Nephrology
DX: Z23 Encounter for immunization (principal); Z09 Encounter for follow-up examination after completed treatment for conditions other than malignant neoplasm; I48.0 Paroxysmal atrial fibrillation; E78.5 Hyperlipidemia, unspecified; I10 Essential (primary) hypertension; Z86.73 Personal history of transient ischemic attack (TIA), and cerebral infarction without residual deficits; J44.9 Chronic obstructive pulmonary disease, unspecified; Z85.3 Personal history of malignant neoplasm of breast; Z79.899 Other long term (current) drug therapy; Z79.82 Long term (current) use of aspirin; Z95.5 Presence of coronary angioplasty implant and graft; Z98.890 Other specified postprocedural states

== ENCOUNTER 2021-10-14 15:24 | Emergency (ER) | payer MEDICARE ==
[2021-10-14 15:31] VITALS: BP 176/79
[2021-10-14 16:07] LABS: BASO % 0.2 % (0.0-1.0); EOS % 0.2 % (1.0-4.0); HEMATOCRIT 41.6 % (42.0-52.0); LYMPH # 1.1 10*3/uL (1.3-4.4); MEAN CELL VOLUME 89.3 fl (80.0-94.0); MEAN CORPUSCULAR HGB 29.4 pg (27.0-31.0); MEAN CORPUSCULAR HGB CONC 32.9 g/dl (33.0-37.0); MEAN PLATELET VOLUME 11.1 fl (9.6-12.3); MONO # 0.4 10*3/uL (0.1-1.0); MONO % 8.2 % (3.0-9.0); NEUT % 67.2 % (47.0-73.0); PLATELET COUNT AUTOMATED 141 10*3/uL (130-400); RED BLOOD COUNT 4.66 10*6/uL (4.50-5.90); RED CELL DISTRI WIDTH 14.6 % (0-14.5); WHITE BLOOD COUNT 4.4 10*3/uL (4.8-10.8)
[2021-10-14 16:24] LABS: ALKALINE PHOSPHATASE 58 U/L (45-117); BUN 16 mg/dl (7-24); CHLORIDE 98 mmol/L (98-107); CPK 96 U/L (39-308); CREATININE 1.53 mg/dL (0.70-1.30); POTASSIUM 3.4 mmol/L (3.5-5.1); SGOT/AST 38 IU/L (3-35); SGPT/ALT 35 U/L (12-78); SODIUM 133 mmol/L (136-145); TOTAL PROTEIN 7.4 gm/dL (6.4-8.2)
== END 2021-10-14 17:45 | disposition home or self-care (01) ==
LOC: ED 15:24
PROVIDERS: Emergency Medicine
DX: U07.1 COVID-19 (principal); I48.91 Unspecified atrial fibrillation; I25.10 Atherosclerotic heart disease of native coronary artery without angina pectoris; I10 Essential (primary) hypertension; M19.90 Unspecified osteoarthritis, unspecified site; Z86.73 Personal history of transient ischemic attack (TIA), and cerebral infarction without residual deficits; Z98.890 Other specified postprocedural states; F17.220 Nicotine dependence, chewing tobacco, uncomplicated; Z88.0 Allergy status to penicillin; Z79.899 Other long term (current) drug therapy

== ENCOUNTER 2022-03-11 13:41 | Emergency (ER) | payer MEDICARE ==
[2022-03-11] MEDS ORDERED: VIBRAMYCIN100 MG PO (19:02)
== END 2022-03-11 19:16 | disposition left against medical advice (07) ==
LOC: ED 13:41
DX: L08.89 Other specified local infections of the skin and subcutaneous tissue (principal); Z53.21 Procedure and treatment not carried out due to patient leaving prior to being seen by health care provider

== ENCOUNTER 2022-03-11 18:06 | Emergency (ER) | payer MEDICARE ==
[2022-03-11 18:22] VITALS: BP 160/78
[2022-03-11] MEDS ORDERED: VIBRAMYCIN100 MG PO (19:02)
== END 2022-03-11 19:16 | disposition home or self-care (01) ==
LOC: ED 18:06
DX: L08.89 Other specified local infections of the skin and subcutaneous tissue (principal); Z90.49 Acquired absence of other specified parts of digestive tract; Z79.899 Other long term (current) drug therapy; Z88.0 Allergy status to penicillin

== ENCOUNTER → 2022-03-25 | Outpatient (CLI) | payer MEDICARE ==
[2022-03-25 09:14] LABS: BASO % 0.3 % (0.0-1.0); EOS # 0.1 10*3/uL (0.0-0.4); EOS % 1.9 % (1.0-4.0); HEMATOCRIT 43.6 % (42.0-52.0); LYMPH # 1.7 10*3/uL (1.3-4.4); LYMPH % 22.5 % (27.0-41.0); MEAN CELL VOLUME 87.6 fl (80.0-94.0); MEAN CORPUSCULAR HGB 28.5 pg (27.0-31.0); MEAN CORPUSCULAR HGB CONC 32.6 g/dl (33.0-37.0); MEAN PLATELET VOLUME 10.4 fl (9.6-12.3); MONO # 0.6 10*3/uL (0.1-1.0); MONO % 7.7 % (3.0-9.0); NEUT % 67.2 % (47.0-73.0); PLATELET COUNT AUTOMATED 215 10*3/uL (130-400); RED BLOOD COUNT 4.98 10*6/uL (4.50-5.90); RED CELL DISTRI WIDTH 14.6 % (0-14.5); WHITE BLOOD COUNT 7.4 10*3/uL (4.8-10.8)
[2022-03-25 09:38] LABS: ALKALINE PHOSPHATASE 59 U/L (45-117); BUN 15 mg/dl (7-24); CHLORIDE 106 mmol/L (98-107); CHOLESTEROL 94 mg/dL (<200); CREATININE 1.26 mg/dL (0.70-1.30); LDL CHOLESTEROL 36 mg/dL (9-159); POTASSIUM 4.2 mmol/L (3.5-5.1); SGOT/AST 26 IU/L (3-35); SGPT/ALT 25 U/L (12-78); SODIUM 142 mmol/L (136-145); TOTAL PROTEIN 7.8 gm/dL (6.4-8.2); TRIGLYCERIDES 121 mg/dl (<150)
== END | disposition home or self-care (01) ==
LOC: RESCLI 08:16
PROVIDERS: Student in an Organized Health Care Education/Training Program; ATTEND Family Medicine
DX: I11.9 Hypertensive heart disease without heart failure (principal); I25.10 Atherosclerotic heart disease of native coronary artery without angina pectoris; I48.0 Paroxysmal atrial fibrillation; G47.33 Obstructive sleep apnea (adult) (pediatric); E78.00 Pure hypercholesterolemia, unspecified; N40.1 Benign prostatic hyperplasia with lower urinary tract symptoms; J44.9 Chronic obstructive pulmonary disease, unspecified; Z85.3 Personal history of malignant neoplasm of breast; Z86.73 Personal history of transient ischemic attack (TIA), and cerebral infarction without residual deficits; R73.09 Other abnormal glucose; E87.6 Hypokalemia; L03.116 Cellulitis of left lower limb; E78.5 Hyperlipidemia, unspecified; Z88.0 Allergy status to penicillin; Z79.899 Other long term (current) drug therapy; Z79.01 Long term (current) use of anticoagulants

== ENCOUNTER → 2022-05-06 | Outpatient (CLI) | payer MEDICARE | END | disposition home or self-care (01) | LOC: RESCLI 10:22 | PROVIDERS: ATTEND Student in an Organized Health Care Education/Training Program | DX: Z23 Encounter for immunization (principal); S81.802A Unspecified open wound, left lower leg, initial encounter; I10 Essential (primary) hypertension; I48.0 Paroxysmal atrial fibrillation; G47.33 Obstructive sleep apnea (adult) (pediatric); E11.51 Type 2 diabetes mellitus with diabetic peripheral angiopathy without gangrene; L03.116 Cellulitis of left lower limb; E87.6 Hypokalemia; J44.9 Chronic obstructive pulmonary disease, unspecified; E78.5 Hyperlipidemia, unspecified; Z85.3 Personal history of malignant neoplasm of breast; Z98.890 Other specified postprocedural states; Z88.0 Allergy status to penicillin; Z90.12 Acquired absence of left breast and nipple; Z72.89 Other problems related to lifestyle; Z79.899 Other long term (current) drug therapy; Z79.01 Long term (current) use of anticoagulants; Z95.5 Presence of coronary angioplasty implant and graft; X58.XXXA Exposure to other specified factors, initial encounter; Y93.89 Activity, other specified; Y92.89 Other specified places as the place of occurrence of the external cause; Y99.8 Other external cause status ==

== ENCOUNTER → 2022-05-07 | Outpatient (CLI) | payer MEDICARE | END | disposition home or self-care (01) | LOC: WOUNDCARE 05-06 17:53 → RESCLI 11:47 → WOUNDCARE 13:45 | PROVIDERS: ATTEND Nurse Practitioner Family | DX: S81.802A Unspecified open wound, left lower leg, initial encounter (principal); E11.51 Type 2 diabetes mellitus with diabetic peripheral angiopathy without gangrene; E66.9 Obesity, unspecified; E78.5 Hyperlipidemia, unspecified; G89.29 Other chronic pain; I48.0 Paroxysmal atrial fibrillation; I10 Essential (primary) hypertension; N40.0 Benign prostatic hyperplasia without lower urinary tract symptoms; I25.10 Atherosclerotic heart disease of native coronary artery without angina pectoris; J44.9 Chronic obstructive pulmonary disease, unspecified; Z85.3 Personal history of malignant neoplasm of breast; Z68.31 Body mass index [BMI] 31.0-31.9, adult; Z90.49 Acquired absence of other specified parts of digestive tract; Z95.5 Presence of coronary angioplasty implant and graft; Z93.3 Colostomy status; X58.XXXA Exposure to other specified factors, initial encounter; Y93.89 Activity, other specified; Y92.89 Other specified places as the place of occurrence of the external cause; Y99.8 Other external cause status ==

== ENCOUNTER → 2022-05-14 | Outpatient (CLI) | payer MEDICARE | END | disposition home or self-care (01) | LOC: WOUNDCARE 01:52 | PROVIDERS: ATTEND Nurse Practitioner Family | DX: S81.802D Unspecified open wound, left lower leg, subsequent encounter (principal); E11.51 Type 2 diabetes mellitus with diabetic peripheral angiopathy without gangrene; E66.9 Obesity, unspecified; E78.5 Hyperlipidemia, unspecified; G89.29 Other chronic pain; I48.0 Paroxysmal atrial fibrillation; I10 Essential (primary) hypertension; N40.0 Benign prostatic hyperplasia without lower urinary tract symptoms; I25.10 Atherosclerotic heart disease of native coronary artery without angina pectoris; J44.9 Chronic obstructive pulmonary disease, unspecified; M19.90 Unspecified osteoarthritis, unspecified site; Z85.3 Personal history of malignant neoplasm of breast; Z90.49 Acquired absence of other specified parts of digestive tract; Z95.5 Presence of coronary angioplasty implant and graft; Z93.3 Colostomy status; X58.XXXD Exposure to other specified factors, subsequent encounter ==

== ENCOUNTER → 2022-06-10 | Outpatient (CLI) | payer MEDICARE | END | disposition home or self-care (01) | LOC: RESCLI 01:02 | PROVIDERS: ATTEND Student in an Organized Health Care Education/Training Program | DX: Z23 Encounter for immunization (principal); I10 Essential (primary) hypertension; I48.0 Paroxysmal atrial fibrillation; G47.33 Obstructive sleep apnea (adult) (pediatric); E78.00 Pure hypercholesterolemia, unspecified; E78.5 Hyperlipidemia, unspecified; J44.9 Chronic obstructive pulmonary disease, unspecified; Z79.899 Other long term (current) drug therapy; Z93.3 Colostomy status; Z95.5 Presence of coronary angioplasty implant and graft; Z85.3 Personal history of malignant neoplasm of breast ==

== ENCOUNTER → 2022-07-01 | Outpatient (CLI) | payer MEDICARE | END | disposition home or self-care (01) | LOC: RESCLI 00:30 | PROVIDERS: ATTEND Internal Medicine | DX: I10 Essential (primary) hypertension (principal); I48.0 Paroxysmal atrial fibrillation; G47.33 Obstructive sleep apnea (adult) (pediatric); E78.00 Pure hypercholesterolemia, unspecified; N40.1 Benign prostatic hyperplasia with lower urinary tract symptoms; I73.9 Peripheral vascular disease, unspecified; E78.5 Hyperlipidemia, unspecified; J44.9 Chronic obstructive pulmonary disease, unspecified; Z82.49 Family history of ischemic heart disease and other diseases of the circulatory system; Z87.891 Personal history of nicotine dependence; Z85.3 Personal history of malignant neoplasm of breast; Z72.89 Other problems related to lifestyle; Z93.2 Ileostomy status; Z90.49 Acquired absence of other specified parts of digestive tract; Z98.890 Other specified postprocedural states; Z90.12 Acquired absence of left breast and nipple; Z88.0 Allergy status to penicillin; Z79.01 Long term (current) use of anticoagulants; Z79.899 Other long term (current) drug therapy ==

== ENCOUNTER → 2022-07-30 | Outpatient (CLI) | payer MEDICARE ==
[2022-07-30 10:40] LABS: BUN 17 mg/dl (9-23); CHLORIDE 99 mmol/L (98-107); CREATININE 1.21 mg/dL (0.70-1.30); POTASSIUM 3.7 mmol/L (3.4-5.1); SODIUM 136 mmol/L (136-145)
== END | disposition home or self-care (01) ==
LOC: LAB 10:01
PROVIDERS: ATTEND Student in an Organized Health Care Education/Training Program
DX: E87.6 Hypokalemia (principal)

== ENCOUNTER → 2022-10-21 | Outpatient (CLI) | payer MEDICARE | END | disposition home or self-care (01) | LOC: RESCLI 00:42 | PROVIDERS: ATTEND Internal Medicine | DX: M54.9 Dorsalgia, unspecified (principal) ==

== ENCOUNTER → 2022-12-10 | Outpatient (CLI) | payer MEDICARE | END | disposition home or self-care (01) | LOC: WOUNDCARE 13:11 | PROVIDERS: ATTEND Nurse Practitioner Family | DX: S81.801A Unspecified open wound, right lower leg, initial encounter (principal); S81.802A Unspecified open wound, left lower leg, initial encounter; E11.51 Type 2 diabetes mellitus with diabetic peripheral angiopathy without gangrene; G89.29 Other chronic pain; E66.9 Obesity, unspecified; I48.0 Paroxysmal atrial fibrillation; I10 Essential (primary) hypertension; E78.5 Hyperlipidemia, unspecified; I25.10 Atherosclerotic heart disease of native coronary artery without angina pectoris; J44.9 Chronic obstructive pulmonary disease, unspecified; Z95.5 Presence of coronary angioplasty implant and graft; Z93.3 Colostomy status; Z86.73 Personal history of transient ischemic attack (TIA), and cerebral infarction without residual deficits; X58.XXXA Exposure to other specified factors, initial encounter; Y93.89 Activity, other specified; Y92.89 Other specified places as the place of occurrence of the external cause; Y99.8 Other external cause status ==

== ENCOUNTER → 2022-12-17 | Outpatient (CLI) | payer MEDICARE | END | disposition home or self-care (01) | LOC: WOUNDCARE 00:19 | PROVIDERS: ATTEND Nurse Practitioner Family | DX: S81.801A Unspecified open wound, right lower leg, initial encounter (principal); S81.802A Unspecified open wound, left lower leg, initial encounter; E11.51 Type 2 diabetes mellitus with diabetic peripheral angiopathy without gangrene; E78.5 Hyperlipidemia, unspecified; E66.9 Obesity, unspecified; G89.29 Other chronic pain; I10 Essential (primary) hypertension; I48.0 Paroxysmal atrial fibrillation; J44.9 Chronic obstructive pulmonary disease, unspecified; I25.10 Atherosclerotic heart disease of native coronary artery without angina pectoris; M19.90 Unspecified osteoarthritis, unspecified site; Z90.49 Acquired absence of other specified parts of digestive tract; Z95.5 Presence of coronary angioplasty implant and graft; Z93.3 Colostomy status; X58.XXXA Exposure to other specified factors, initial encounter; Y93.89 Activity, other specified; Y92.89 Other specified places as the place of occurrence of the external cause; Y99.8 Other external cause status ==

== ENCOUNTER → 2022-12-24 | Outpatient (CLI) | payer MEDICARE | END | disposition home or self-care (01) | LOC: WOUNDCARE 01:32 | PROVIDERS: ATTEND Nurse Practitioner Family | DX: S81.801D Unspecified open wound, right lower leg, subsequent encounter (principal); S81.802D Unspecified open wound, left lower leg, subsequent encounter; E11.51 Type 2 diabetes mellitus with diabetic peripheral angiopathy without gangrene; E78.5 Hyperlipidemia, unspecified; E66.9 Obesity, unspecified; I10 Essential (primary) hypertension; I48.0 Paroxysmal atrial fibrillation; I25.10 Atherosclerotic heart disease of native coronary artery without angina pectoris; J44.9 Chronic obstructive pulmonary disease, unspecified; Z90.49 Acquired absence of other specified parts of digestive tract; Z95.5 Presence of coronary angioplasty implant and graft; Z93.3 Colostomy status; X58.XXXD Exposure to other specified factors, subsequent encounter ==

== ENCOUNTER → 2022-12-31 | Outpatient (CLI) | payer MEDICARE | END | disposition home or self-care (01) | LOC: WOUNDCARE 00:53 | PROVIDERS: ATTEND Nurse Practitioner Family | DX: S81.801D Unspecified open wound, right lower leg, subsequent encounter (principal); S81.802D Unspecified open wound, left lower leg, subsequent encounter; E11.51 Type 2 diabetes mellitus with diabetic peripheral angiopathy without gangrene; E66.9 Obesity, unspecified; G89.29 Other chronic pain; E78.5 Hyperlipidemia, unspecified; I10 Essential (primary) hypertension; I48.0 Paroxysmal atrial fibrillation; I25.10 Atherosclerotic heart disease of native coronary artery without angina pectoris; J44.9 Chronic obstructive pulmonary disease, unspecified; M19.90 Unspecified osteoarthritis, unspecified site; Z85.3 Personal history of malignant neoplasm of breast; Z90.49 Acquired absence of other specified parts of digestive tract; Z93.3 Colostomy status; X58.XXXD Exposure to other specified factors, subsequent encounter ==

== ENCOUNTER → 2023-01-20 | Outpatient (CLI) | payer MEDICARE ==
[2023-01-20 10:58] LABS: BASO % 0.4 % (0.0-1.0); EOS # 0.2 10*3/uL (0.0-0.4); EOS % 2.4 % (1.0-4.0); HEMATOCRIT 43.3 % (42.0-52.0); LYMPH # 1.8 10*3/uL (1.3-4.4); LYMPH % 24.1 % (27.0-41.0); MEAN CELL VOLUME 88.7 fl (80.0-94.0); MEAN CORPUSCULAR HGB 29.1 pg (27.0-31.0); MEAN CORPUSCULAR HGB CONC 32.8 g/dl (33.0-37.0); MONO # 0.5 10*3/uL (0.1-1.0); MONO % 6.9 % (3.0-9.0); NEUT # 4.9 10*3/uL (2.3-7.9); NEUT % 65.9 % (47.0-73.0); PLATELET COUNT AUTOMATED 209 10*3/uL (130-400); RED BLOOD COUNT 4.88 10*6/uL (4.50-5.90); RED CELL DISTRI WIDTH 14.6 % (0-14.5); WHITE BLOOD COUNT 7.4 10*3/uL (4.8-10.8)
[2023-01-20 11:24] LABS: ALKALINE PHOSPHATASE 69 U/L (46-116); BUN 11 mg/dl (9-23); CHLORIDE 105 mmol/L (98-107); CHOLESTEROL 98 mg/dL (<200); LDL CHOLESTEROL 37 mg/dL (9-159); POTASSIUM 3.5 mmol/L (3.4-5.1); SGPT/ALT 30 U/L (10-49); TOTAL PROTEIN 7.3 gm/dL (6.0-8.0); TRIGLYCERIDES 167 mg/dl (<150)
== END | disposition home or self-care (01) ==
LOC: RESCLI 01:00
PROVIDERS: Student in an Organized Health Care Education/Training Program; ATTEND Internal Medicine
DX: J44.9 Chronic obstructive pulmonary disease, unspecified (principal); I48.0 Paroxysmal atrial fibrillation; I10 Essential (primary) hypertension; E78.5 Hyperlipidemia, unspecified; R73.09 Other abnormal glucose; I73.9 Peripheral vascular disease, unspecified; L03.116 Cellulitis of left lower limb; N40.0 Benign prostatic hyperplasia without lower urinary tract symptoms; F10.90 Alcohol use, unspecified, uncomplicated; Z85.3 Personal history of malignant neoplasm of breast; Z79.01 Long term (current) use of anticoagulants; Z79.899 Other long term (current) drug therapy; Z86.16 Personal history of COVID-19; Z88.0 Allergy status to penicillin; Z72.0 Tobacco use

== ENCOUNTER → 2023-02-09 | Outpatient (CLI) | payer MEDICARE | END | disposition home or self-care (01) | LOC: RESCLI 13:27 | PROVIDERS: ATTEND Student in an Organized Health Care Education/Training Program | DX: I73.9 Peripheral vascular disease, unspecified (principal); B49 Unspecified mycosis; Z82.49 Family history of ischemic heart disease and other diseases of the circulatory system; F10.90 Alcohol use, unspecified, uncomplicated; F17.200 Nicotine dependence, unspecified, uncomplicated; Z88.0 Allergy status to penicillin; Z98.890 Other specified postprocedural states; Z79.899 Other long term (current) drug therapy ==

== ENCOUNTER → 2023-02-19 | Outpatient (CLI) | payer MEDICARE | END | disposition home or self-care (01) | LOC: US 00:53 | PROVIDERS: ATTEND Internal Medicine | DX: I73.9 Peripheral vascular disease, unspecified (principal) ==

== ENCOUNTER → 2023-03-10 | Outpatient (CLI) | payer MEDICARE | END | disposition home or self-care (01) | LOC: RESCLI 01:43 | PROVIDERS: ATTEND Internal Medicine | DX: B49 Unspecified mycosis (principal); I48.0 Paroxysmal atrial fibrillation; I10 Essential (primary) hypertension; Z85.3 Personal history of malignant neoplasm of breast; J44.9 Chronic obstructive pulmonary disease, unspecified; E11.622 Type 2 diabetes mellitus with other skin ulcer; Z98.890 Other specified postprocedural states; Z88.0 Allergy status to penicillin; Z82.49 Family history of ischemic heart disease and other diseases of the circulatory system; Z79.899 Other long term (current) drug therapy ==

== ENCOUNTER 2023-03-27 13:02 | Emergency (ER) | payer MEDICARE ==
[~2023-03-27] VITALS: Ht 185.4 cm; Wt 119.3 kg
[2023-03-27 13:10] VITALS: BP 167/77
[2023-03-27] MEDS ORDERED: CEPHALEXIN500 M1 PO (13:41)
== END 2023-03-27 14:00 | disposition home or self-care (01) ==
LOC: ED 13:02
DX: S51.811A Laceration without foreign body of right forearm, initial encounter (principal); I10 Essential (primary) hypertension; I25.10 Atherosclerotic heart disease of native coronary artery without angina pectoris; M19.90 Unspecified osteoarthritis, unspecified site; Z86.73 Personal history of transient ischemic attack (TIA), and cerebral infarction without residual deficits; E78.00 Pure hypercholesterolemia, unspecified; Z88.0 Allergy status to penicillin; Z90.49 Acquired absence of other specified parts of digestive tract; Z98.890 Other specified postprocedural states; F17.220 Nicotine dependence, chewing tobacco, uncomplicated; W54.0XXA Bitten by dog, initial encounter; Y93.89 Activity, other specified; Y92.89 Other specified places as the place of occurrence of the external cause; Y99.8 Other external cause status

== ENCOUNTER → 2023-06-09 | Outpatient (CLI) | payer MEDICARE ==
[~2023-06-09] MED LIST changes: +CEPHALEXIN500 M1 PO
== END | disposition home or self-care (01) ==
LOC: RESCLI 01:36
PROVIDERS: ATTEND Internal Medicine
DX: Z23 Encounter for immunization (principal); I10 Essential (primary) hypertension; I25.10 Atherosclerotic heart disease of native coronary artery without angina pectoris; I48.0 Paroxysmal atrial fibrillation; E78.5 Hyperlipidemia, unspecified; J44.9 Chronic obstructive pulmonary disease, unspecified; M19.90 Unspecified osteoarthritis, unspecified site; G47.33 Obstructive sleep apnea (adult) (pediatric); Z85.3 Personal history of malignant neoplasm of breast; Z90.12 Acquired absence of left breast and nipple; Z90.49 Acquired absence of other specified parts of digestive tract; Z79.899 Other long term (current) drug therapy; Z88.0 Allergy status to penicillin; Z98.890 Other specified postprocedural states

== ENCOUNTER 2023-07-12 11:14 | Emergency (ER) | payer MEDICARE ==
[~2023-07-12] VITALS: Ht 185.4 cm; Wt 108.9 kg
[2023-07-12 11:33] VITALS: BP 165/86
== END 2023-07-12 15:21 | disposition left against medical advice (07) ==
LOC: ED 11:14
DX: R51.9 Headache, unspecified (principal); M79.10 Myalgia, unspecified site; R05.9 Cough, unspecified; Z88.0 Allergy status to penicillin; Z53.21 Procedure and treatment not carried out due to patient leaving prior to being seen by health care provider

== ENCOUNTER 2023-07-14 06:11 | Emergency (ER) | payer MEDICARE ==
[~2023-07-14] VITALS: Ht 185.4 cm; Wt 108.9 kg
[2023-07-14 06:18] VITALS: BP 142/118
[2023-07-14] MEDS ORDERED: Vibra-Tab100 MG PO (07:10)
[2023-07-14] MEDS ORDERED: PREDNISONE20 M1 PO (07:10)
== END 2023-07-14 07:48 | disposition home or self-care (01) ==
LOC: ED 06:11
DX: J44.1 Chronic obstructive pulmonary disease with (acute) exacerbation (principal); I10 Essential (primary) hypertension; I25.10 Atherosclerotic heart disease of native coronary artery without angina pectoris; M19.90 Unspecified osteoarthritis, unspecified site; Z86.73 Personal history of transient ischemic attack (TIA), and cerebral infarction without residual deficits; E78.00 Pure hypercholesterolemia, unspecified; I48.91 Unspecified atrial fibrillation; Z88.0 Allergy status to penicillin; Z90.49 Acquired absence of other specified parts of digestive tract; Z98.890 Other specified postprocedural states; F17.220 Nicotine dependence, chewing tobacco, uncomplicated

== ENCOUNTER 2023-08-07 11:48 | Emergency (ER) | payer MEDICARE ==
[~2023-08-07] VITALS: Ht 185.4 cm; Wt 108.9 kg
[~2023-08-07 11:48] MED LIST changes: +PREDNISONE20 M1 PO; +Vibra-Tab100 MG PO
[2023-08-07 11:58] VITALS: BP 166/94
[2023-08-07] MEDS ORDERED: LASIX20 MG PO (12:40)
[2023-08-07] MEDS ORDERED: VIBRA-TAB100 MG PO (12:40)
== END 2023-08-07 12:55 | disposition home or self-care (01) ==
LOC: ED 11:48
DX: L03.116 Cellulitis of left lower limb (principal); I10 Essential (primary) hypertension; I25.10 Atherosclerotic heart disease of native coronary artery without angina pectoris; M19.90 Unspecified osteoarthritis, unspecified site; Z86.73 Personal history of transient ischemic attack (TIA), and cerebral infarction without residual deficits; E78.00 Pure hypercholesterolemia, unspecified; I48.91 Unspecified atrial fibrillation; Z88.0 Allergy status to penicillin; Z90.49 Acquired absence of other specified parts of digestive tract; Z98.890 Other specified postprocedural states; F17.220 Nicotine dependence, chewing tobacco, uncomplicated; Z95.5 Presence of coronary angioplasty implant and graft

== ENCOUNTER → 2023-09-01 | Outpatient (CLI) | payer MEDICARE ==
[~2023-09-01] MED LIST changes: +LASIX20 MG PO; +VIBRA-TAB100 MG PO
== END | disposition home or self-care (01) ==
LOC: WOUNDCARE 11:42
PROVIDERS: ATTEND Nurse Practitioner Family
DX: E11.622 Type 2 diabetes mellitus with other skin ulcer (principal); L97.822 Non-pressure chronic ulcer of other part of left lower leg with fat layer exposed; E11.51 Type 2 diabetes mellitus with diabetic peripheral angiopathy without gangrene; I87.2 Venous insufficiency (chronic) (peripheral); I10 Essential (primary) hypertension; I48.0 Paroxysmal atrial fibrillation; J44.9 Chronic obstructive pulmonary disease, unspecified; G89.29 Other chronic pain; N40.1 Benign prostatic hyperplasia with lower urinary tract symptoms; M19.09 Primary osteoarthritis, other specified site; M47.812 Spondylosis without myelopathy or radiculopathy, cervical region; E78.5 Hyperlipidemia, unspecified; E66.9 Obesity, unspecified; F17.290 Nicotine dependence, other tobacco product, uncomplicated; Z68.32 Body mass index [BMI] 32.0-32.9, adult; Z95.818 Presence of other cardiac implants and grafts; Z90.10 Acquired absence of unspecified breast and nipple

== ENCOUNTER → 2023-09-07 | Outpatient (CLI) | payer MEDICARE | END | disposition home or self-care (01) | LOC: WOUNDCARE 01:41 | PROVIDERS: ATTEND Nurse Practitioner Family | DX: E11.622 Type 2 diabetes mellitus with other skin ulcer (principal); L97.822 Non-pressure chronic ulcer of other part of left lower leg with fat layer exposed; E11.51 Type 2 diabetes mellitus with diabetic peripheral angiopathy without gangrene; I87.2 Venous insufficiency (chronic) (peripheral); I10 Essential (primary) hypertension; G89.29 Other chronic pain; I48.21 Permanent atrial fibrillation; J44.9 Chronic obstructive pulmonary disease, unspecified; E78.5 Hyperlipidemia, unspecified; N40.0 Benign prostatic hyperplasia without lower urinary tract symptoms; M19.90 Unspecified osteoarthritis, unspecified site; M47.812 Spondylosis without myelopathy or radiculopathy, cervical region; E66.9 Obesity, unspecified; F17.290 Nicotine dependence, other tobacco product, uncomplicated; Z68.32 Body mass index [BMI] 32.0-32.9, adult; Z85.3 Personal history of malignant neoplasm of breast; Z95.818 Presence of other cardiac implants and grafts; Z90.10 Acquired absence of unspecified breast and nipple ==

== ENCOUNTER → 2023-09-14 | Outpatient (CLI) | payer MEDICARE | END | disposition home or self-care (01) | LOC: WOUNDCARE 01:54 | PROVIDERS: ATTEND Nurse Practitioner Family | DX: E11.622 Type 2 diabetes mellitus with other skin ulcer (principal); L97.822 Non-pressure chronic ulcer of other part of left lower leg with fat layer exposed; I87.2 Venous insufficiency (chronic) (peripheral); E11.51 Type 2 diabetes mellitus with diabetic peripheral angiopathy without gangrene; I10 Essential (primary) hypertension; E66.9 Obesity, unspecified; G89.29 Other chronic pain; I48.0 Paroxysmal atrial fibrillation; E78.5 Hyperlipidemia, unspecified; N40.0 Benign prostatic hyperplasia without lower urinary tract symptoms; I25.10 Atherosclerotic heart disease of native coronary artery without angina pectoris; J44.9 Chronic obstructive pulmonary disease, unspecified; Z90.49 Acquired absence of other specified parts of digestive tract; Z95.5 Presence of coronary angioplasty implant and graft ==

== ENCOUNTER 2023-10-03 17:23 | Inpatient (IN) | payer MEDICARE ==
[~2023-10-03] VITALS: Ht 185.4 cm; Wt 106.8 kg
[2023-10-03 17:30] VITALS: BP 181/47
[2023-10-03] MEDS ORDERED: methylPREDNISolone sod succ 125 MG VIAL IV ONE (17:35)
[2023-10-03] MEDS ORDERED: MAGNESIUM SULFATE 50 ML IV ONE (17:35)
[2023-10-03] MEDS ORDERED: Albuterol Sulfate 2.5 MG/3 ML VIAL NEB ONE (17:35)
[2023-10-03] MEDS ORDERED: AZITHROMYCIN 250 MG TAB PO ONE ×2 (17:35→18:10)
[2023-10-03] MEDS ORDERED: SODIUM CHLORIDE 0.9% 1,000 ML IV ONE (17:45)
[2023-10-03] MEDS ORDERED: ACETAMINOPHEN 325 MG TAB PO ONE (17:45)
[2023-10-03 17:50] LABS: BASO % 0.2 % (0.0-1.0); EOS # 0.1 10*3/uL (0.0-0.4); EOS % 0.4 % (1.0-4.0); HEMATOCRIT 40.8 % (42.0-52.0); LYMPH # 1.9 10*3/uL (1.3-4.4); LYMPH % 16.5 % (27.0-41.0); MEAN CELL VOLUME 88.9 fl (80.0-94.0); MEAN CORPUSCULAR HGB CONC 32.6 g/dl (33.0-37.0); MEAN PLATELET VOLUME 10.4 fl (9.6-12.3); MONO # 0.8 10*3/uL (0.1-1.0); MONO % 6.6 % (3.0-9.0); NEUT # 8.9 10*3/uL (2.3-7.9); PLATELET COUNT AUTOMATED 197 10*3/uL (130-400); RED BLOOD COUNT 4.59 10*6/uL (4.50-5.90); RED CELL DISTRI WIDTH 14.3 % (0-14.5); WHITE BLOOD COUNT 11.6 10*3/uL (4.8-10.8)
[2023-10-03 18:07] LABS: ALKALINE PHOSPHATASE 64 U/L (46-116); BUN 9 mg/dl (9-23); CHLORIDE 103 mmol/L (98-107); POTASSIUM 3.1 mmol/L (3.4-5.1); SGPT/ALT 23 U/L (5-49); TOTAL PROTEIN 7.3 gm/dL (6.0-8.0)
[2023-10-03] MEDS ORDERED: Ceftriaxone Sodium 1 GM/10 ML SYR IV ONE (18:10)
[2023-10-03] MEDS ORDERED: POTASSIUM CHLORIDE 20 MEQ TAB PO ONE ×2 (18:10→18:40)
[2023-10-03] MEDS ORDERED: MORPHINE Sulfate 2 MG/ML SYR IV PRN (18:40)
[2023-10-03] MEDS ORDERED: Magnesium Hydroxide 30 ML UDC PO PRN (18:40)
[2023-10-03] MEDS ORDERED: BISACODYL 5 MG TAB PO PRN (18:40)
[2023-10-03] MEDS ORDERED: ACETAMINOPHEN 325 MG TAB PO PRN (18:40)
[2023-10-03] MEDS ORDERED: Acetaminophen/Hydrocodone 5 MG/325 MG TABLET PO PRN (18:40)
[2023-10-03] MEDS ORDERED: ACETAMINOPHEN 650 MG SUPP R PRN (18:40)
[2023-10-03] MEDS ORDERED: Ondansetron Hydrochloride 4 MG/2 ML VIAL IV PRN (18:40)
[2023-10-03] MEDS ORDERED: BISACODYL 10 MG SUPP R PRN (18:40)
[2023-10-03] MEDS ORDERED: Benzocaine/Menthol 1 LOZ LOZENGE PO PRN (21:00)
[2023-10-03 22:02] VITALS: BP 172/98
[2023-10-04 06:26] VITALS: BP 170/96
[2023-10-04 06:39] LABS: BASO % 0.1 % (0.0-1.0); HEMATOCRIT 45.8 % (42.0-52.0); LYMPH # 1.7 10*3/uL (1.3-4.4); LYMPH % 10.1 % (27.0-41.0); MEAN CELL VOLUME 91.6 fl (80.0-94.0); MEAN CORPUSCULAR HGB 28.6 pg (27.0-31.0); MEAN CORPUSCULAR HGB CONC 31.2 g/dl (33.0-37.0); MEAN PLATELET VOLUME 10.2 fl (9.6-12.3); MONO # 0.4 10*3/uL (0.1-1.0); MONO % 2.6 % (3.0-9.0); NEUT # 14.7 10*3/uL (2.3-7.9); NEUT % 86.7 % (47.0-73.0); PLATELET COUNT AUTOMATED 200 10*3/uL (130-400); RED CELL DISTRI WIDTH 14.6 % (0-14.5); WHITE BLOOD COUNT 16.9 10*3/uL (4.8-10.8)
[2023-10-04 06:56] LABS: ACT PARTIAL THROMBO TIME 42.4 SECONDS (20.0-32.1)
[2023-10-04 07:10] LABS: BUN 8 mg/dl (9-23); CHOLESTEROL 104 mg/dL (<200); FREE T4 0.86 ng/dl (0.89-1.76); LDL CHOLESTEROL 54 mg/dL (9-159); SGPT/ALT 24 U/L (5-49); TOTAL PROTEIN 7.7 gm/dL (6.0-8.0); TRIGLYCERIDES 51 mg/dl (<150)
[2023-10-04 07:12] LABS: ALKALINE PHOSPHATASE 66 U/L (46-116)
[2023-10-04 07:32] LABS: CHLORIDE 106 mmol/L (98-107); POTASSIUM 3.7 mmol/L (3.4-5.1)
[2023-10-04 07:56] LABS: VITAMIN D, 25-HYDROXY 42.9 ng/mL (30-100)
[2023-10-04 08:46] VITALS: BP 184/98
[2023-10-04] MEDS ORDERED: Losartan Potassium 50 MG TAB PO SCH (10:00)
[2023-10-04] MEDS ORDERED: Metoprolol Tartrate 50 MG TAB PO SCH (10:00)
[2023-10-04] MEDS ORDERED: amLODIPine besylate 10 MG TAB PO SCH (10:00)
[2023-10-04] MEDS ORDERED: ATORVASTATIN CALCIUM 40 MG TABLET PO SCH (10:00)
[2023-10-04] MEDS ORDERED: TAMOXIFEN CITRATE 10 MG TAB PO SCH (10:00)
[2023-10-04] MEDS ORDERED: FUROSEMIDE 40 MG/4 ML VIAL IV SCH (10:00)
[2023-10-04] MEDS ORDERED: Enoxaparin Sodium 40 MG/0.4 ML SYR SC SCH (10:00)
[2023-10-04] MEDS ORDERED: Ceftriaxone Sodium 10 ML IV ONE (11:50)
[2023-10-04 12:25] VITALS: BP 141/70
[2023-10-04 12:45] VITALS: BP 136/107
[2023-10-04] MEDS ORDERED: PERFLUTREN PROTEIN-A MICROSPHR 3 ML VIAL IV ONE (13:45)
[2023-10-04 16:00] VITALS: BP 126/70
[2023-10-04] MEDS ORDERED: RIVAROXABAN 20 MG TAB PO SCH (18:00)
[2023-10-04] MEDS ORDERED: AZITHROMYCIN 250 ML IV SCH (18:00)
[2023-10-04 20:00] VITALS: BP 128/69
[2023-10-04] MEDS ORDERED: Ceftriaxone Sodium 1 GM,IV 1 EA in SYRINGE INFUSION 10 ML IV SCH (20:00)
[2023-10-05] VITALS: BP 124/66
[2023-10-05 08:00] VITALS: BP 112/71
[2023-10-05] MEDS ORDERED: Ceftriaxone Sodium 2 GM in SYRINGE INFUSION 20 ML IV SCH (10:00)
[2023-10-05 12:00] VITALS: BP 146/73
[2023-10-05] MEDS ORDERED: SODIUM CHLORIDE 0.9% 100 ML BAG IV ONE (12:40)
[2023-10-05] MEDS ORDERED: IOHEXOL 350 MG/ML 100 ML VIAL IV ONE (12:40)
[2023-10-05] MEDS ORDERED: Cefepime Hydrochloride 2 GM,IV 1 EA in SODIUM CHLORIDE 0.9% 50 ML IV SCH (14:00)
[2023-10-05 16:00] VITALS: BP 156/81
[2023-10-05] MEDS ORDERED: Doxycycline Hyclate 100 MG,IV 1 EA in SODIUM CHLORIDE 0.9% 250 ML IV SCH (16:00)
[2023-10-05 20:00] VITALS: BP 147/80
[2023-10-06] VITALS (10 sets, daily range): BP systolic 122–162; BP diastolic 74–94
[2023-10-06 05:35] LABS: CHLORIDE 103 mmol/L (98-107); POTASSIUM 3.5 mmol/L (3.4-5.1)
[2023-10-06 05:36] LABS: BUN 22 mg/dl (9-23)
[2023-10-06 06:02] LABS: BASO % 0.1 % (0.0-1.0); EOS % 0.2 % (1.0-4.0); HEMATOCRIT 37.2 % (42.0-52.0); LYMPH # 1.5 10*3/uL (1.3-4.4); LYMPH % 9.5 % (27.0-41.0); MEAN CELL VOLUME 89.9 fl (80.0-94.0); MEAN CORPUSCULAR HGB 29.2 pg (27.0-31.0); MEAN CORPUSCULAR HGB CONC 32.5 g/dl (33.0-37.0); MEAN PLATELET VOLUME 11.3 fl (9.6-12.3); MONO # 1.2 10*3/uL (0.1-1.0); MONO % 7.3 % (3.0-9.0); NEUT % 82.3 % (47.0-73.0); PLATELET COUNT AUTOMATED 178 10*3/uL (130-400); RED BLOOD COUNT 4.14 10*6/uL (4.50-5.90); RED CELL DISTRI WIDTH 14.6 % (0-14.5); WHITE BLOOD COUNT 15.8 10*3/uL (4.8-10.8)
[2023-10-06 08:09] LABS: IMMUNOGLOBULIN M, QNT 91 mg/dL (15-143)
[2023-10-06] MEDS ORDERED: SODIUM CHLORIDE 0.9% 1,000 ML IV ONE ×2 (08:25→08:31)
[2023-10-06] MEDS ORDERED: Lidocaine Hydrochloride 4% 5 ML AMP NEB ONE (08:25)
[2023-10-06] MEDS ORDERED: Albuterol Sulfate 1.25 MG/3 ML VIAL NEB ONE (08:25)
[2023-10-06] MEDS ORDERED: Lidocaine Hydrochloride 4% 5 ML AMP ONE (08:28)
[2023-10-06] MEDS ORDERED: Albuterol Sulfate 2.5 MG/0.5 ML VIAL NEB ONE (08:29)
[2023-10-06] MEDS ORDERED: Albuterol Sulf/Ipratropium 3 ML VIAL NEB ONE ×2 (09:20→09:31)
[2023-10-06] MEDS ORDERED: Metoprolol Tartrate 5 MG/5 ML VIAL IV ONE (09:57)
[2023-10-06 15:07] LABS: ALDOLASE 10.6 U/L (3.3-10.3); ANGIOTENSIN-CONVERTING ENZYME 37 U/L (14-82); IGG SUBCLASS 1 899 mg/dL (248-810); IGG SUBCLASS 2 247 mg/dL (130-555); IGG SUBCLASS 3 110 mg/dL (15-102); IMMUNOGLOBULIN G, QNT 1306 mg/dL (603-1613)
[2023-10-06] MEDS ORDERED: Labetalol Hydrochloride 20 MG/4 ML SYR IV ONE (17:01)
[2023-10-06] MEDS ORDERED: Midazolam Hydrochloride 2 MG/2 ML VIAL IV ONE (17:01)
[2023-10-06] MEDS ORDERED: PROPOFOL 200 MG/20 ML VIAL IV ONE (17:01)
[2023-10-06] MEDS ORDERED: Metoprolol Tartrate 50 MG TAB PO SCH (22:00)
[2023-10-07] VITALS: BP 135/80
[2023-10-07 04:51] LABS: BUN 19 mg/dl (9-23); CHLORIDE 104 mmol/L (98-107); POTASSIUM 3.7 mmol/L (3.4-5.1)
[2023-10-07 06:02] LABS: BASO % 0.2 % (0.0-1.0); HEMATOCRIT 35.8 % (42.0-52.0); LYMPH # 1.1 10*3/uL (1.3-4.4); LYMPH % 8.5 % (27.0-41.0); MEAN CELL VOLUME 90.9 fl (80.0-94.0); MEAN CORPUSCULAR HGB 28.9 pg (27.0-31.0); MEAN CORPUSCULAR HGB CONC 31.8 g/dl (33.0-37.0); MEAN PLATELET VOLUME 11.1 fl (9.6-12.3); MONO # 0.8 10*3/uL (0.1-1.0); NEUT # 10.9 10*3/uL (2.3-7.9); NEUT % 84.7 % (47.0-73.0); PLATELET COUNT AUTOMATED 195 10*3/uL (130-400); RED BLOOD COUNT 3.94 10*6/uL (4.50-5.90); RED CELL DISTRI WIDTH 14.4 % (0-14.5); WHITE BLOOD COUNT 12.8 10*3/uL (4.8-10.8)
[2023-10-07] MEDS ORDERED: Albuterol Sulf/Ipratropium 3 ML VIAL NEB PRN (06:35)
[2023-10-07 08:00] VITALS: BP 156/90
[2023-10-07 12:00] VITALS: BP 139/74
[2023-10-07 14:53] VITALS: BP 145/78
[2023-10-07 15:07] LABS: ACID FAST SPEC PROCESSING Concentration (.)
[2023-10-07 20:00] VITALS: BP 158/108
[2023-10-07 22:00] VITALS: BP 160/70
[2023-10-08] VITALS: BP 150/89
[2023-10-08 00:06] LABS: TB1 Ag VALUE 0.22 IU/mL (.)
[2023-10-08 06:36] LABS: BASO % 0.2 % (0.0-1.0); EOS # 0.1 10*3/uL (0.0-0.4); EOS % 0.9 % (1.0-4.0); HEMATOCRIT 38.1 % (42.0-52.0); LYMPH # 1.5 10*3/uL (1.3-4.4); LYMPH % 13.6 % (27.0-41.0); MEAN CELL VOLUME 89.6 fl (80.0-94.0); MEAN CORPUSCULAR HGB 28.9 pg (27.0-31.0); MEAN CORPUSCULAR HGB CONC 32.3 g/dl (33.0-37.0); MEAN PLATELET VOLUME 10.5 fl (9.6-12.3); MONO # 1.1 10*3/uL (0.1-1.0); NEUT # 7.9 10*3/uL (2.3-7.9); NEUT % 74.4 % (47.0-73.0); PLATELET COUNT AUTOMATED 216 10*3/uL (130-400); RED BLOOD COUNT 4.25 10*6/uL (4.50-5.90); RED CELL DISTRI WIDTH 14.5 % (0-14.5); WHITE BLOOD COUNT 10.7 10*3/uL (4.8-10.8)
[2023-10-08 07:04] LABS: BUN 14 mg/dl (9-23); CHLORIDE 105 mmol/L (98-107); POTASSIUM 3.3 mmol/L (3.4-5.1)
[2023-10-08] MEDS ORDERED: POTASSIUM CHLORIDE 20 MEQ TAB PO ONE (07:35)
[2023-10-08 08:14] VITALS: BP 152/93
[2023-10-08 12:00] VITALS: BP 154/89
[2023-10-08 16:00] VITALS: BP 158/104
[2023-10-08 17:54] VITALS: BP 148/70
[2023-10-08] MEDS ORDERED: FUROSEMIDE 40 MG/4 ML VIAL IV SCH (18:00)
[2023-10-08 20:00] VITALS: BP 160/78
[2023-10-09] VITALS: BP 145/81
[2023-10-09 06:05] LABS: BASO % 0.4 % (0.0-1.0); EOS # 0.2 10*3/uL (0.0-0.4); EOS % 2.4 % (1.0-4.0); HEMATOCRIT 39.8 % (42.0-52.0); LYMPH # 1.5 10*3/uL (1.3-4.4); LYMPH % 15.2 % (27.0-41.0); MEAN CELL VOLUME 89.2 fl (80.0-94.0); MEAN CORPUSCULAR HGB 28.5 pg (27.0-31.0); MEAN CORPUSCULAR HGB CONC 31.9 g/dl (33.0-37.0); MEAN PLATELET VOLUME 10.5 fl (9.6-12.3); MONO % 9.7 % (3.0-9.0); NEUT # 7.2 10*3/uL (2.3-7.9); NEUT % 70.9 % (47.0-73.0); PLATELET COUNT AUTOMATED 247 10*3/uL (130-400); RED BLOOD COUNT 4.46 10*6/uL (4.50-5.90); RED CELL DISTRI WIDTH 14.4 % (0-14.5); WHITE BLOOD COUNT 10.1 10*3/uL (4.8-10.8)
[2023-10-09 06:53] LABS: BUN 14 mg/dl (9-23); CHLORIDE 104 mmol/L (98-107); POTASSIUM 3.4 mmol/L (3.4-5.1)
[2023-10-09 08:00] VITALS: BP 152/87
[2023-10-09 12:00] VITALS: BP 130/77
[2023-10-09 16:00] VITALS: BP 124/83
[2023-10-09 20:00] VITALS: BP 144/73
[2023-10-10] VITALS: BP 144/731
[2023-10-10 04:00] VITALS: BP 140/89
[2023-10-10 06:30] LABS: BASO # 0.1 10*3/uL (0.0-0.1); BASO % 0.5 % (0.0-1.0); EOS # 0.3 10*3/uL (0.0-0.4); EOS % 3.3 % (1.0-4.0); HEMATOCRIT 39.9 % (42.0-52.0); LYMPH # 1.7 10*3/uL (1.3-4.4); LYMPH % 17.7 % (27.0-41.0); MEAN CELL VOLUME 88.7 fl (80.0-94.0); MEAN CORPUSCULAR HGB 28.9 pg (27.0-31.0); MEAN CORPUSCULAR HGB CONC 32.6 g/dl (33.0-37.0); MEAN PLATELET VOLUME 10.2 fl (9.6-12.3); MONO # 0.9 10*3/uL (0.1-1.0); MONO % 9.5 % (3.0-9.0); NEUT # 6.3 10*3/uL (2.3-7.9); NEUT % 66.5 % (47.0-73.0); PLATELET COUNT AUTOMATED 260 10*3/uL (130-400); RED CELL DISTRI WIDTH 14.4 % (0-14.5); WHITE BLOOD COUNT 9.5 10*3/uL (4.8-10.8)
[2023-10-10 07:11] LABS: BUN 16 mg/dl (9-23); CHLORIDE 104 mmol/L (98-107); POTASSIUM 3.2 mmol/L (3.4-5.1)
[2023-10-10 07:24] VITALS: BP 140/89
[2023-10-10] MEDS ORDERED: POTASSIUM CHLORIDE 20 MEQ TAB PO ONE (08:10)
[2023-10-10 12:00] VITALS: BP 126/64
[2023-10-10 16:00] VITALS: BP 131/49
[2023-10-10] MEDS ORDERED: RIVAROXABAN 20 MG TAB PO SCH (18:00)
[2023-10-10 20:00] VITALS: BP 150/87
[2023-10-11] VITALS: BP 131/72
[2023-10-11 06:23] LABS: HEMATOCRIT 40.7 % (42.0-52.0); MEAN CORPUSCULAR HGB 28.8 pg (27.0-31.0); MEAN CORPUSCULAR HGB CONC 31.9 g/dl (33.0-37.0); MEAN PLATELET VOLUME 9.9 fl (9.6-12.3); PLATELET COUNT AUTOMATED 297 10*3/uL (130-400); RED BLOOD COUNT 4.52 10*6/uL (4.50-5.90); RED CELL DISTRI WIDTH 14.4 % (0-14.5)
[2023-10-11 06:26] LABS: MANUAL DIFF REFLEX YES
[2023-10-11 06:55] LABS: BUN 18 mg/dl (9-23); BURR CELLS FEW; CHLORIDE 106 mmol/L (98-107); OVALOCYTES FEW; PLATELET SUFFICIENCY NORMAL (NORMAL); POLYCHROMASIA SLIGHT; POTASSIUM 3.5 mmol/L (3.4-5.1); TOTAL CELLS COUNTED 100 #CELLS
[2023-10-11 08:00] VITALS: BP 151/85
[2023-10-11] MEDS ORDERED: Doxycycline Hyclate 100 MG CAP PO SCH (10:00)
[2023-10-11 12:00] VITALS: BP 119/71
[2023-10-11 16:00] VITALS: BP 129/68
[2023-10-11] MEDS ORDERED: METOLAZONE 5 MG TAB PO SCH (17:30)
[2023-10-11 20:00] VITALS: BP 113/63
[2023-10-11] MEDS ORDERED: LEVOFLOXACIN750 M2 PO (21:51)
[2023-10-12] VITALS: BP 121/72
[2023-10-12 06:31] LABS: HEMATOCRIT 41.9 % (42.0-52.0); MEAN CELL VOLUME 88.8 fl (80.0-94.0); MEAN CORPUSCULAR HGB 28.8 pg (27.0-31.0); MEAN CORPUSCULAR HGB CONC 32.5 g/dl (33.0-37.0); MEAN PLATELET VOLUME 10.1 fl (9.6-12.3); PLATELET COUNT AUTOMATED 312 10*3/uL (130-400); RED BLOOD COUNT 4.72 10*6/uL (4.50-5.90); RED CELL DISTRI WIDTH 14.3 % (0-14.5); WHITE BLOOD COUNT 10.9 10*3/uL (4.8-10.8)
[2023-10-12 06:40] LABS: MANUAL DIFF REFLEX YES
[2023-10-12 06:50] LABS: BUN 20 mg/dl (9-23); CHLORIDE 103 mmol/L (98-107); POTASSIUM 3.5 mmol/L (3.4-5.1)
[2023-10-12 07:14] LABS: ATYPICAL LYMPHS 1 % (0-0); PLATELET SUFFICIENCY NORMAL (NORMAL); TOTAL CELLS COUNTED 100 #CELLS
[2023-10-12 07:15] LABS: BURR CELLS FEW
[2023-10-12 08:30] VITALS: BP 136/71
[2023-10-12 12:00] VITALS: BP 106/70
[2023-10-12 16:00] VITALS: BP 110/68
[2023-10-12] MEDS ORDERED: INH300 MG PO (18:43)
[2023-10-12 20:00] VITALS: BP 110/50
[2023-10-13] VITALS: BP 118/60
[2023-10-13 07:42] LABS: MEAN CELL VOLUME 89.8 fl (80.0-94.0); MEAN CORPUSCULAR HGB 28.8 pg (27.0-31.0); MEAN PLATELET VOLUME 9.8 fl (9.6-12.3); PLATELET COUNT AUTOMATED 338 10*3/uL (130-400); RED CELL DISTRI WIDTH 14.2 % (0-14.5); WHITE BLOOD COUNT 10.5 10*3/uL (4.8-10.8)
[2023-10-13 07:43] LABS: MANUAL DIFF REFLEX YES
[2023-10-13 08:00] VITALS: BP 112/56
[2023-10-13 08:06] LABS: BASOPHILS 2 % (0-1); BURR CELLS FEW; OVALOCYTES FEW; POLYCHROMASIA SLIGHT; TOTAL CELLS COUNTED 100 #CELLS
[2023-10-13 08:07] LABS: PLATELET SUFFICIENCY NORMAL (NORMAL)
[2023-10-13 08:14] LABS: POTASSIUM 3.4 mmol/L (3.4-5.1)
[2023-10-13 12:00] VITALS: BP 100/61
[2023-10-13] MEDS ORDERED: LASIX20 MG PO (13:34)
== END 2023-10-13 14:02 | disposition home or self-care (01) | DRG 871 ==
LOC: ED 17:23 → 4E 18:21 → EDHOLD 18:21 → 4E 10-04 11:15
PROVIDERS: Emergency Medicine; Internal Medicine Critical Care Medicine; Student in an Organized Health Care Education/Training Program; ADMIT Student in an Organized Health Care Education/Training Program; ATTEND Student in an Organized Health Care Education/Training Program
PROC: 0B928ZZ Drainage of Carina, Via Natural or Artificial Opening Endoscopic (ICD-10-PCS; 2023-10-06)
PROC: 0B948ZZ Drainage of Right Upper Lobe Bronchus, Via Natural or Artificial Opening Endoscopic (ICD-10-PCS; 2023-10-06)
PROC: 0B988ZZ Drainage of Left Upper Lobe Bronchus, Via Natural or Artificial Opening Endoscopic (ICD-10-PCS; 2023-10-06)
PROC: 0B918ZZ Drainage of Trachea, Via Natural or Artificial Opening Endoscopic (ICD-10-PCS; 2023-10-06)
PROC: 0B958ZZ Drainage of Right Middle Lobe Bronchus, Via Natural or Artificial Opening Endoscopic (ICD-10-PCS; 2023-10-06)
PROC: 0B938ZZ Drainage of Right Main Bronchus, Via Natural or Artificial Opening Endoscopic (ICD-10-PCS; 2023-10-06)
PROC: 0B978ZZ Drainage of Left Main Bronchus, Via Natural or Artificial Opening Endoscopic (ICD-10-PCS; 2023-10-06)
PROC: 0B968ZZ Drainage of Right Lower Lobe Bronchus, Via Natural or Artificial Opening Endoscopic (ICD-10-PCS; 2023-10-06)
PROC: 0B9B8ZZ Drainage of Left Lower Lobe Bronchus, Via Natural or Artificial Opening Endoscopic (ICD-10-PCS; 2023-10-06)
PROC: 0B998ZZ Drainage of Lingula Bronchus, Via Natural or Artificial Opening Endoscopic (ICD-10-PCS; 2023-10-06)
PROC: 5A09357 Assistance with Respiratory Ventilation, Less than 24 Consecutive Hours, Continuous Positive Airway Pressure (ICD-10-PCS; principal; 2023-10-08)
DX: A41.9 Sepsis, unspecified organism (principal); J18.9 Pneumonia, unspecified organism; I48.20 Chronic atrial fibrillation, unspecified; J44.1 Chronic obstructive pulmonary disease with (acute) exacerbation; R04.2 Hemoptysis; E66.09 Other obesity due to excess calories; I50.9 Heart failure, unspecified; I11.0 Hypertensive heart disease with heart failure; K57.30 Diverticulosis of large intestine without perforation or abscess without bleeding; E87.6 Hypokalemia; R73.9 Hyperglycemia, unspecified; E78.5 Hyperlipidemia, unspecified; I25.10 Atherosclerotic heart disease of native coronary artery without angina pectoris; Z68.31 Body mass index [BMI] 31.0-31.9, adult; Z95.5 Presence of coronary angioplasty implant and graft; Z93.3 Colostomy status; Z85.3 Personal history of malignant neoplasm of breast; Z88.0 Allergy status to penicillin; Z79.899 Other long term (current) drug therapy; Z82.49 Family history of ischemic heart disease and other diseases of the circulatory system; Z80.3 Family history of malignant neoplasm of breast; Z90.49 Acquired absence of other specified parts of digestive tract; Z22.7 Latent tuberculosis

== ENCOUNTER → 2023-10-19 | Outpatient (CLI) | payer MEDICARE ==
[~2023-10-19] MED LIST changes: +INH300 MG PO; +LEVOFLOXACIN750 M2 PO
[2023-10-19 11:44] LABS: BASO # 0.1 10*3/uL (0.0-0.1); BASO % 0.5 % (0.0-1.0); EOS # 0.1 10*3/uL (0.0-0.4); EOS % 0.8 % (1.0-4.0); HEMATOCRIT 42.3 % (42.0-52.0); LYMPH # 2.4 10*3/uL (1.3-4.4); LYMPH % 23.7 % (27.0-41.0); MEAN CELL VOLUME 89.2 fl (80.0-94.0); MEAN CORPUSCULAR HGB 28.1 pg (27.0-31.0); MEAN CORPUSCULAR HGB CONC 31.4 g/dl (33.0-37.0); MEAN PLATELET VOLUME 10.2 fl (9.6-12.3); MONO # 0.8 10*3/uL (0.1-1.0); MONO % 7.9 % (3.0-9.0); NEUT # 6.6 10*3/uL (2.3-7.9); NEUT % 66.4 % (47.0-73.0); PLATELET COUNT AUTOMATED 280 10*3/uL (130-400); RED BLOOD COUNT 4.74 10*6/uL (4.50-5.90); RED CELL DISTRI WIDTH 14.2 % (0-14.5)
[2023-10-19 12:17] LABS: TOTAL PROTEIN 7.3 gm/dL (6.0-8.0)
== END | disposition home or self-care (01) ==
LOC: RESCLI 02:35
PROVIDERS: Student in an Organized Health Care Education/Training Program; ATTEND Internal Medicine
DX: J44.9 Chronic obstructive pulmonary disease, unspecified (principal); I10 Essential (primary) hypertension; E78.5 Hyperlipidemia, unspecified; I48.0 Paroxysmal atrial fibrillation; D72.829 Elevated white blood cell count, unspecified; E87.6 Hypokalemia; R73.9 Hyperglycemia, unspecified; Z22.7 Latent tuberculosis; Z85.3 Personal history of malignant neoplasm of breast; Z98.890 Other specified postprocedural states; Z82.49 Family history of ischemic heart disease and other diseases of the circulatory system; Z79.899 Other long term (current) drug therapy; Z88.0 Allergy status to penicillin; Z86.79 Personal history of other diseases of the circulatory system

== ENCOUNTER 2023-11-15 09:50 | Emergency (ER) | payer MEDICARE ==
[~2023-11-15] VITALS: Ht 185.4 cm; Wt 108.9 kg
[2023-11-15 09:57] VITALS: BP 185/96
[2023-11-15 10:26] LABS: BASO % 0.4 % (0.0-1.0); EOS % 0.5 % (1.0-4.0); HEMATOCRIT 36.8 % (42.0-52.0); LYMPH # 1.1 10*3/uL (1.3-4.4); LYMPH % 14.6 % (27.0-41.0); MEAN CELL VOLUME 90.4 fl (80.0-94.0); MEAN CORPUSCULAR HGB 28.7 pg (27.0-31.0); MEAN CORPUSCULAR HGB CONC 31.8 g/dl (33.0-37.0); MONO # 0.5 10*3/uL (0.1-1.0); MONO % 6.7 % (3.0-9.0); NEUT # 5.8 10*3/uL (2.3-7.9); NEUT % 77.7 % (47.0-73.0); PLATELET COUNT AUTOMATED 187 10*3/uL (130-400); RED BLOOD COUNT 4.07 10*6/uL (4.50-5.90); RED CELL DISTRI WIDTH 15.4 % (0-14.5); WHITE BLOOD COUNT 7.5 10*3/uL (4.8-10.8)
[2023-11-15 10:55] LABS: ALKALINE PHOSPHATASE 54 U/L (46-116); BUN 15 mg/dl (9-23); CHLORIDE 107 mmol/L (98-107); POTASSIUM 3.8 mmol/L (3.4-5.1); SGPT/ALT 15 U/L (5-49)
[2023-11-15 11:21] LABS: BILIRUBIN 1+ (Negative); BLOOD Negative (Negative); CLARITY Clear (Clear); COLOR Dark Yellow (Yellow); GLUCOSE Negative (Negative); KETONE Negative (Negative); LEUKO ESTERASE 1+ (Negative); NITRITE Negative (Negative); UROBILINOGEN 0.2 E.U./dl (0.0-1.0)
[2023-11-15 11:35] LABS: BACTERIA 2+; MUCOUS 2+
[2023-11-15] MEDS ORDERED: BENZONATATE100 M1 PO (11:44)
[2023-11-15] MEDS ORDERED: CIPRO500 MG PO (11:44)
== END 2023-11-15 11:59 | disposition home or self-care (01) ==
LOC: ED 09:50
PROVIDERS: Physician Assistant Medical
DX: Z22.7 Latent tuberculosis (principal); N39.0 Urinary tract infection, site not specified; I10 Essential (primary) hypertension; I25.10 Atherosclerotic heart disease of native coronary artery without angina pectoris; M19.90 Unspecified osteoarthritis, unspecified site; Z86.73 Personal history of transient ischemic attack (TIA), and cerebral infarction without residual deficits; E78.00 Pure hypercholesterolemia, unspecified; Z88.0 Allergy status to penicillin; Z90.49 Acquired absence of other specified parts of digestive tract; Z98.890 Other specified postprocedural states; Z95.5 Presence of coronary angioplasty implant and graft; F17.220 Nicotine dependence, chewing tobacco, uncomplicated

== ENCOUNTER 2023-12-09 09:28 | Emergency (ER) | payer MEDICARE ==
[~2023-12-09] VITALS: Ht 185.4 cm; Wt 106.6 kg
[~2023-12-09 09:28] MED LIST changes: -PREDNISONE50 MG PO
[2023-12-09 10:42] LABS: BASO % 0.3 % (0.0-1.0); EOS # 0.1 10*3/uL (0.0-0.4); EOS % 1.3 % (1.0-4.0); HEMATOCRIT 38.8 % (42.0-52.0); LYMPH # 1.5 10*3/uL (1.3-4.4); LYMPH % 19.1 % (27.0-41.0); MEAN CELL VOLUME 91.7 fl (80.0-94.0); MEAN CORPUSCULAR HGB 28.1 pg (27.0-31.0); MEAN CORPUSCULAR HGB CONC 30.7 g/dl (33.0-37.0); MONO # 0.5 10*3/uL (0.1-1.0); MONO % 6.8 % (3.0-9.0); NEUT # 5.8 10*3/uL (2.3-7.9); NEUT % 72.4 % (47.0-73.0); PLATELET COUNT AUTOMATED 199 10*3/uL (130-400); RED BLOOD COUNT 4.23 10*6/uL (4.50-5.90); WHITE BLOOD COUNT 7.9 10*3/uL (4.8-10.8)
[2023-12-09 11:03] LABS: ALKALINE PHOSPHATASE 54 U/L (46-116); BUN 8 mg/dl (9-23); CHLORIDE 102 mmol/L (98-107); POTASSIUM 3.6 mmol/L (3.4-5.1); SGPT/ALT 19 U/L (5-49); TOTAL PROTEIN 7.1 gm/dL (6.0-8.0)
[2023-12-09] MEDS ORDERED: Ceftriaxone Sodium 1 GM/10 ML SYR IV ONE (12:30)
[2023-12-09] MEDS ORDERED: hydrALAZINE hydrochloride 20 MG/ML VIAL IV ONE (12:30)
[2023-12-09] MEDS ORDERED: methylPREDNISolone sod succ 125 MG VIAL IV ONE (12:30)
[2023-12-09 14:07] VITALS: BP 156/82
[2023-12-09] MEDS ORDERED: PREDNISONE50 MG PO (14:35)
[2023-12-09] MEDS ORDERED: LEVOFLOXACIN750 M2 PO (14:35)
== END 2023-12-09 16:02 | disposition home or self-care (01) ==
LOC: ED 09:28
PROVIDERS: Internal Medicine
DX: J44.1 Chronic obstructive pulmonary disease with (acute) exacerbation (principal); I10 Essential (primary) hypertension; I25.10 Atherosclerotic heart disease of native coronary artery without angina pectoris; M19.90 Unspecified osteoarthritis, unspecified site; Z86.73 Personal history of transient ischemic attack (TIA), and cerebral infarction without residual deficits; E78.00 Pure hypercholesterolemia, unspecified; Z95.5 Presence of coronary angioplasty implant and graft; I48.91 Unspecified atrial fibrillation; Z90.12 Acquired absence of left breast and nipple

== ENCOUNTER → 2023-12-09 | Outpatient (CLI) | payer MEDICARE ==
[~2023-12-09] MED LIST changes: +BENZONATATE100 M1 PO; +PREDNISONE50 MG PO
== END | disposition home or self-care (01) ==
LOC: RESCLI 00:48
PROVIDERS: ATTEND Internal Medicine
DX: J44.1 Chronic obstructive pulmonary disease with (acute) exacerbation (principal); I48.91 Unspecified atrial fibrillation; I10 Essential (primary) hypertension; I25.10 Atherosclerotic heart disease of native coronary artery without angina pectoris; E78.5 Hyperlipidemia, unspecified; I48.0 Paroxysmal atrial fibrillation; Z98.890 Other specified postprocedural states; Z82.49 Family history of ischemic heart disease and other diseases of the circulatory system; Z88.0 Allergy status to penicillin; Z22.7 Latent tuberculosis; Z85.3 Personal history of malignant neoplasm of breast; Z79.899 Other long term (current) drug therapy

== ENCOUNTER → 2023-12-23 | Outpatient (CLI) | payer MEDICARE ==
[~2023-12-23] MED LIST changes: +PREDNISONE50 MG PO
== END | disposition home or self-care (01) ==
LOC: RESCLI 00:56
PROVIDERS: ATTEND Internal Medicine
DX: Z22.7 Latent tuberculosis (principal); R05.9 Cough, unspecified; J44.9 Chronic obstructive pulmonary disease, unspecified; I48.91 Unspecified atrial fibrillation; I10 Essential (primary) hypertension; Z85.3 Personal history of malignant neoplasm of breast; E78.5 Hyperlipidemia, unspecified; Z79.899 Other long term (current) drug therapy; Z88.8 Allergy status to other drugs, medicaments and biological substances; Z98.890 Other specified postprocedural states

== ENCOUNTER → 2024-01-20 | Outpatient (CLI) | payer MEDICARE ==
[~2024-01-20] MED LIST changes: +CYCLOBENZAPRINE5 M3 PO
[2024-01-20 13:50] LABS: TOTAL PROTEIN 6.7 gm/dL (6.0-8.0)
== END | disposition home or self-care (01) ==
LOC: LAB 12:57
PROVIDERS: Student in an Organized Health Care Education/Training Program; ATTEND Student in an Organized Health Care Education/Training Program
DX: Z22.7 Latent tuberculosis (principal)

== ENCOUNTER 2024-01-22 11:48 | Emergency (ER) | payer MEDICARE ==
[~2024-01-22] VITALS: Ht 185.4 cm; Wt 108.9 kg
[~2024-01-22 11:48] MED LIST changes: -CYCLOBENZAPRINE5 M3 PO
[2024-01-22 11:51] VITALS: BP 161/89
[2024-01-22] MEDS ORDERED: ACETAMINOPHEN 325 MG TAB PO ONE (12:20)
[2024-01-22] MEDS ORDERED: CYCLOBENZAPRINE5 M3 PO (14:07)
[2024-01-22] MEDS ORDERED: Cyclobenzaprine Hydrochlorid 10 MG TAB PO ONE (14:35)
== END 2024-01-22 14:34 | disposition home or self-care (01) ==
LOC: ED 11:48
DX: S39.012A Strain of muscle, fascia and tendon of lower back, initial encounter (principal); S09.8XXA Other specified injuries of head, initial encounter; J90 Pleural effusion, not elsewhere classified; I10 Essential (primary) hypertension; I25.10 Atherosclerotic heart disease of native coronary artery without angina pectoris; M19.90 Unspecified osteoarthritis, unspecified site; Z86.73 Personal history of transient ischemic attack (TIA), and cerebral infarction without residual deficits; E78.00 Pure hypercholesterolemia, unspecified; I48.91 Unspecified atrial fibrillation; F17.220 Nicotine dependence, chewing tobacco, uncomplicated; Z88.0 Allergy status to penicillin; Z90.49 Acquired absence of other specified parts of digestive tract; Z98.890 Other specified postprocedural states; W01.0XXA Fall on same level from slipping, tripping and stumbling without subsequent striking against object, initial encounter; Y93.89 Activity, other specified; Y92.009 Unspecified place in unspecified non-institutional (private) residence as the place of occurrence of the external cause; Y99.8 Other external cause status

== ENCOUNTER → 2024-02-07 | Outpatient (CLI) | payer MEDICARE ==
[~2024-02-07] MED LIST changes: +ALDACTONE25 MG PO; +BUMETANIDE0.5 MG PO; +CYCLOBENZAPRINE5 M3 PO; +DOXYCYCLINE HY100 M3 PO; +LOSARTAN POTASS50 M1 PO; +METOPROLOL SUCC25 M2 PO
== END | disposition home or self-care (01) ==
LOC: WOUNDCARE 00:15
PROVIDERS: ATTEND Nurse Practitioner Family
DX: E11.622 Type 2 diabetes mellitus with other skin ulcer (principal); L97.822 Non-pressure chronic ulcer of other part of left lower leg with fat layer exposed; L03.90 Cellulitis, unspecified; I87.2 Venous insufficiency (chronic) (peripheral); R60.0 Localized edema; I10 Essential (primary) hypertension; E11.51 Type 2 diabetes mellitus with diabetic peripheral angiopathy without gangrene; I48.0 Paroxysmal atrial fibrillation; J44.9 Chronic obstructive pulmonary disease, unspecified; N40.1 Benign prostatic hyperplasia with lower urinary tract symptoms; M19.90 Unspecified osteoarthritis, unspecified site; M47.812 Spondylosis without myelopathy or radiculopathy, cervical region; E78.5 Hyperlipidemia, unspecified; E66.9 Obesity, unspecified; F17.290 Nicotine dependence, other tobacco product, uncomplicated; Z68.29 Body mass index [BMI] 29.0-29.9, adult; Z86.73 Personal history of transient ischemic attack (TIA), and cerebral infarction without residual deficits; Z95.818 Presence of other cardiac implants and grafts; Z90.10 Acquired absence of unspecified breast and nipple

== ENCOUNTER → 2024-02-14 | Outpatient (CLI) | payer MEDICARE | END | disposition home or self-care (01) | LOC: WOUNDCARE 02:56 | PROVIDERS: ATTEND Nurse Practitioner Family | DX: E11.622 Type 2 diabetes mellitus with other skin ulcer (principal); L97.822 Non-pressure chronic ulcer of other part of left lower leg with fat layer exposed; L03.90 Cellulitis, unspecified; E11.51 Type 2 diabetes mellitus with diabetic peripheral angiopathy without gangrene; I87.2 Venous insufficiency (chronic) (peripheral); I10 Essential (primary) hypertension; I48.0 Paroxysmal atrial fibrillation; J44.9 Chronic obstructive pulmonary disease, unspecified; N40.1 Benign prostatic hyperplasia with lower urinary tract symptoms; M19.90 Unspecified osteoarthritis, unspecified site; M47.812 Spondylosis without myelopathy or radiculopathy, cervical region; R60.0 Localized edema; G47.33 Obstructive sleep apnea (adult) (pediatric); E78.5 Hyperlipidemia, unspecified; E66.9 Obesity, unspecified; F17.290 Nicotine dependence, other tobacco product, uncomplicated; Z68.29 Body mass index [BMI] 29.0-29.9, adult; Z86.73 Personal history of transient ischemic attack (TIA), and cerebral infarction without residual deficits; Z95.818 Presence of other cardiac implants and grafts; Z90.10 Acquired absence of unspecified breast and nipple; Z79.899 Other long term (current) drug therapy ==

== ENCOUNTER → 2024-02-28 | Outpatient (CLI) | payer MEDICARE | END | disposition home or self-care (01) | LOC: CT 00:06 → WOUNDCARE 11:00 → CT 11:00 | PROVIDERS: ATTEND Internal Medicine Critical Care Medicine | DX: J90 Pleural effusion, not elsewhere classified (principal); J45.30 Mild persistent asthma, uncomplicated; D86.0 Sarcoidosis of lung; G47.33 Obstructive sleep apnea (adult) (pediatric); R59.0 Localized enlarged lymph nodes; I25.10 Atherosclerotic heart disease of native coronary artery without angina pectoris; Z68.32 Body mass index [BMI] 32.0-32.9, adult; Z85.3 Personal history of malignant neoplasm of breast; Z86.16 Personal history of COVID-19 ==

== ENCOUNTER → 2024-03-28 | Outpatient (CLI) | payer MEDICARE | END | disposition home or self-care (01) | LOC: WOUNDCARE 02:41 | PROVIDERS: ATTEND Nurse Practitioner Family | DX: E11.622 Type 2 diabetes mellitus with other skin ulcer (principal); L97.822 Non-pressure chronic ulcer of other part of left lower leg with fat layer exposed; L03.90 Cellulitis, unspecified; E11.51 Type 2 diabetes mellitus with diabetic peripheral angiopathy without gangrene; I87.2 Venous insufficiency (chronic) (peripheral); I10 Essential (primary) hypertension; I48.0 Paroxysmal atrial fibrillation; J44.9 Chronic obstructive pulmonary disease, unspecified; N40.1 Benign prostatic hyperplasia with lower urinary tract symptoms; M19.90 Unspecified osteoarthritis, unspecified site; M47.812 Spondylosis without myelopathy or radiculopathy, cervical region; G47.33 Obstructive sleep apnea (adult) (pediatric); R60.0 Localized edema; E78.5 Hyperlipidemia, unspecified; E66.9 Obesity, unspecified; F17.290 Nicotine dependence, other tobacco product, uncomplicated; Z68.29 Body mass index [BMI] 29.0-29.9, adult; Z86.73 Personal history of transient ischemic attack (TIA), and cerebral infarction without residual deficits; Z85.3 Personal history of malignant neoplasm of breast; Z95.818 Presence of other cardiac implants and grafts; Z90.10 Acquired absence of unspecified breast and nipple; Z79.899 Other long term (current) drug therapy ==

== ENCOUNTER → 2024-04-10 | Outpatient (CLI) | payer MEDICARE | END | disposition home or self-care (01) | LOC: WOUNDCARE 00:50 | PROVIDERS: ATTEND Nurse Practitioner Family | DX: E11.622 Type 2 diabetes mellitus with other skin ulcer (principal); L97.822 Non-pressure chronic ulcer of other part of left lower leg with fat layer exposed; I87.2 Venous insufficiency (chronic) (peripheral); E11.51 Type 2 diabetes mellitus with diabetic peripheral angiopathy without gangrene; R60.0 Localized edema; L03.90 Cellulitis, unspecified; I10 Essential (primary) hypertension; E66.9 Obesity, unspecified; I48.0 Paroxysmal atrial fibrillation; E78.5 Hyperlipidemia, unspecified; I25.10 Atherosclerotic heart disease of native coronary artery without angina pectoris; G47.33 Obstructive sleep apnea (adult) (pediatric); N40.0 Benign prostatic hyperplasia without lower urinary tract symptoms; J44.9 Chronic obstructive pulmonary disease, unspecified; M19.90 Unspecified osteoarthritis, unspecified site; Z90.49 Acquired absence of other specified parts of digestive tract; Z95.5 Presence of coronary angioplasty implant and graft; Z93.3 Colostomy status ==

== ENCOUNTER → 2024-04-18 | Outpatient (CLI) | payer MEDICARE | END | disposition home or self-care (01) | LOC: WOUNDCARE 01:28 | PROVIDERS: ATTEND Nurse Practitioner Family | DX: E11.622 Type 2 diabetes mellitus with other skin ulcer (principal); L97.822 Non-pressure chronic ulcer of other part of left lower leg with fat layer exposed; L03.90 Cellulitis, unspecified; R60.0 Localized edema; I87.2 Venous insufficiency (chronic) (peripheral); E11.51 Type 2 diabetes mellitus with diabetic peripheral angiopathy without gangrene; E66.9 Obesity, unspecified; E78.5 Hyperlipidemia, unspecified; I10 Essential (primary) hypertension; I48.0 Paroxysmal atrial fibrillation; I25.10 Atherosclerotic heart disease of native coronary artery without angina pectoris; N40.0 Benign prostatic hyperplasia without lower urinary tract symptoms; J44.9 Chronic obstructive pulmonary disease, unspecified; M19.90 Unspecified osteoarthritis, unspecified site; Z90.49 Acquired absence of other specified parts of digestive tract; Z95.5 Presence of coronary angioplasty implant and graft; Z93.3 Colostomy status ==

== ENCOUNTER → 2024-04-28 | Outpatient (CLI) | payer MEDICARE ==
[2024-04-28 14:49] LABS: POTASSIUM 4.2 mmol/L (3.4-5.1); TOTAL PROTEIN 6.7 gm/dL (6.0-8.0)
== END | disposition home or self-care (01) ==
LOC: RESCLI 02:04
PROVIDERS: Student in an Organized Health Care Education/Training Program; ATTEND Internal Medicine
DX: R76.11 Nonspecific reaction to tuberculin skin test without active tuberculosis (principal); I10 Essential (primary) hypertension; I25.10 Atherosclerotic heart disease of native coronary artery without angina pectoris; Z95.5 Presence of coronary angioplasty implant and graft; Z88.0 Allergy status to penicillin; Z29.9 Encounter for prophylactic measures, unspecified; Z98.890 Other specified postprocedural states; Z82.49 Family history of ischemic heart disease and other diseases of the circulatory system; F10.90 Alcohol use, unspecified, uncomplicated; F17.200 Nicotine dependence, unspecified, uncomplicated; Z79.01 Long term (current) use of anticoagulants; Z79.899 Other long term (current) drug therapy; Y90.9 Presence of alcohol in blood, level not specified

== ENCOUNTER 2024-05-15 14:39 | Emergency (ER) | payer MEDICARE ==
[~2024-05-15] VITALS: Ht 185.4 cm; Wt 106.1 kg
[2024-05-15 16:58] VITALS: BP 158/91
== END 2024-05-15 17:11 | disposition home or self-care (01) ==
LOC: ED 14:39
DX: S40.021A Contusion of right upper arm, initial encounter (principal); I10 Essential (primary) hypertension; I25.10 Atherosclerotic heart disease of native coronary artery without angina pectoris; M19.90 Unspecified osteoarthritis, unspecified site; Z86.73 Personal history of transient ischemic attack (TIA), and cerebral infarction without residual deficits; E78.00 Pure hypercholesterolemia, unspecified; I48.91 Unspecified atrial fibrillation; F17.220 Nicotine dependence, chewing tobacco, uncomplicated; Z95.5 Presence of coronary angioplasty implant and graft; Z88.0 Allergy status to penicillin; Z98.890 Other specified postprocedural states; Z90.49 Acquired absence of other specified parts of digestive tract; Z90.12 Acquired absence of left breast and nipple; X58.XXXA Exposure to other specified factors, initial encounter; Y93.89 Activity, other specified; Y92.009 Unspecified place in unspecified non-institutional (private) residence as the place of occurrence of the external cause; Y99.8 Other external cause status

== ENCOUNTER → 2024-05-19 | Outpatient (CLI) | payer MEDICARE ==
[2024-05-19 16:25] LABS: BASO % 0.3 % (0.0-1.0); EOS # 0.1 10*3/uL (0.0-0.4); EOS % 1.3 % (1.0-4.0); HEMATOCRIT 35.9 % (42.0-52.0); LYMPH # 2.1 10*3/uL (1.3-4.4); LYMPH % 30.2 % (27.0-41.0); MEAN CELL VOLUME 89.8 fl (80.0-94.0); MEAN CORPUSCULAR HGB 29.8 pg (27.0-31.0); MEAN CORPUSCULAR HGB CONC 33.1 g/dl (33.0-37.0); MEAN PLATELET VOLUME 10.7 fl (9.6-12.3); MONO # 0.5 10*3/uL (0.1-1.0); MONO % 7.4 % (3.0-9.0); NEUT # 4.3 10*3/uL (2.3-7.9); NEUT % 60.5 % (47.0-73.0); PLATELET COUNT AUTOMATED 211 10*3/uL (130-400); RED CELL DISTRI WIDTH 16.2 % (0-14.5)
[2024-05-19 16:35] LABS: ACT PARTIAL THROMBO TIME 61.8 SECONDS (20.0-32.1)
== END | disposition home or self-care (01) ==
LOC: RESCLI 03:36
PROVIDERS: Student in an Organized Health Care Education/Training Program; ATTEND Family Medicine
DX: F03.90 Unspecified dementia, unspecified severity, without behavioral disturbance, psychotic disturbance, mood disturbance, and anxiety (principal); I48.91 Unspecified atrial fibrillation; I10 Essential (primary) hypertension; J44.9 Chronic obstructive pulmonary disease, unspecified; E78.5 Hyperlipidemia, unspecified; M54.9 Dorsalgia, unspecified; R05.9 Cough, unspecified; Z85.3 Personal history of malignant neoplasm of breast; Z79.01 Long term (current) use of anticoagulants; Z88.0 Allergy status to penicillin; Z79.899 Other long term (current) drug therapy; Z98.890 Other specified postprocedural states

== ENCOUNTER 2024-05-20 13:27 | Emergency (ER) | payer MEDICARE ==
[~2024-05-20] VITALS: Ht 185.4 cm; Wt 108.9 kg
[2024-05-20 13:39] VITALS: BP 133/77
[2024-05-20 15:04] LABS: ACT PARTIAL THROMBO TIME 39.4 SECONDS (20.0-32.1)
[2024-05-20 15:05] LABS: POTASSIUM 4.1 mmol/L (3.4-5.1); TOTAL PROTEIN 7.3 gm/dL (6.0-8.0)
== END 2024-05-20 19:34 | disposition home or self-care (01) ==
LOC: ED 13:27
PROVIDERS: Internal Medicine
DX: I13.0 Hypertensive heart and chronic kidney disease with heart failure and stage 1 through stage 4 chronic kidney disease, or unspecified chronic kidney disease (principal); I50.9 Heart failure, unspecified; N18.30 Chronic kidney disease, stage 3 unspecified; I25.10 Atherosclerotic heart disease of native coronary artery without angina pectoris; F17.220 Nicotine dependence, chewing tobacco, uncomplicated; Z88.0 Allergy status to penicillin; Z79.899 Other long term (current) drug therapy; Z90.49 Acquired absence of other specified parts of digestive tract; Z95.5 Presence of coronary angioplasty implant and graft; Z98.890 Other specified postprocedural states

== ENCOUNTER → 2024-06-28 | Outpatient (CLI) | payer MEDICARE | END | disposition home or self-care (01) | LOC: WOUNDCARE 14:26 | PROVIDERS: ATTEND Nurse Practitioner Family | DX: R21 Rash and other nonspecific skin eruption (principal); L24.B1 Irritant contact dermatitis related to digestive stoma or fistula; E11.51 Type 2 diabetes mellitus with diabetic peripheral angiopathy without gangrene; I10 Essential (primary) hypertension; I48.0 Paroxysmal atrial fibrillation; J44.9 Chronic obstructive pulmonary disease, unspecified; N40.1 Benign prostatic hyperplasia with lower urinary tract symptoms; M19.90 Unspecified osteoarthritis, unspecified site; M47.812 Spondylosis without myelopathy or radiculopathy, cervical region; G47.33 Obstructive sleep apnea (adult) (pediatric); R60.0 Localized edema; E78.5 Hyperlipidemia, unspecified; E66.9 Obesity, unspecified; F17.290 Nicotine dependence, other tobacco product, uncomplicated; Z68.29 Body mass index [BMI] 29.0-29.9, adult; Z86.73 Personal history of transient ischemic attack (TIA), and cerebral infarction without residual deficits; Z85.3 Personal history of malignant neoplasm of breast; Z95.818 Presence of other cardiac implants and grafts; Z90.10 Acquired absence of unspecified breast and nipple; Z79.899 Other long term (current) drug therapy ==

== ENCOUNTER → 2024-07-03 | Outpatient (CLI) | payer MEDICARE | END | disposition home or self-care (01) | LOC: WOUNDCARE 13:22 | PROVIDERS: ATTEND Nurse Practitioner Family | DX: S81.812A Laceration without foreign body, left lower leg, initial encounter (principal); E11.622 Type 2 diabetes mellitus with other skin ulcer; L97.822 Non-pressure chronic ulcer of other part of left lower leg with fat layer exposed; R21 Rash and other nonspecific skin eruption; L24.B1 Irritant contact dermatitis related to digestive stoma or fistula; E11.51 Type 2 diabetes mellitus with diabetic peripheral angiopathy without gangrene; I10 Essential (primary) hypertension; I48.0 Paroxysmal atrial fibrillation; J44.9 Chronic obstructive pulmonary disease, unspecified; N40.1 Benign prostatic hyperplasia with lower urinary tract symptoms; M19.90 Unspecified osteoarthritis, unspecified site; M47.812 Spondylosis without myelopathy or radiculopathy, cervical region; G47.33 Obstructive sleep apnea (adult) (pediatric); R60.0 Localized edema; E78.5 Hyperlipidemia, unspecified; E66.9 Obesity, unspecified; F17.290 Nicotine dependence, other tobacco product, uncomplicated; Z68.29 Body mass index [BMI] 29.0-29.9, adult; Z86.73 Personal history of transient ischemic attack (TIA), and cerebral infarction without residual deficits; Z85.3 Personal history of malignant neoplasm of breast; Z95.818 Presence of other cardiac implants and grafts; Z90.10 Acquired absence of unspecified breast and nipple; Z79.899 Other long term (current) drug therapy; X58.XXXA Exposure to other specified factors, initial encounter; Y93.89 Activity, other specified; Y92.89 Other specified places as the place of occurrence of the external cause; Y99.8 Other external cause status ==

== ENCOUNTER → 2024-07-10 | Outpatient (CLI) | payer MEDICARE | END | disposition home or self-care (01) | LOC: WOUNDCARE 07-05 03:00 | PROVIDERS: ATTEND Nurse Practitioner Family | DX: E11.622 Type 2 diabetes mellitus with other skin ulcer (principal); L97.822 Non-pressure chronic ulcer of other part of left lower leg with fat layer exposed; L24.B1 Irritant contact dermatitis related to digestive stoma or fistula; S81.812D Laceration without foreign body, left lower leg, subsequent encounter; I10 Essential (primary) hypertension; E66.9 Obesity, unspecified; I48.0 Paroxysmal atrial fibrillation; J44.9 Chronic obstructive pulmonary disease, unspecified; E78.5 Hyperlipidemia, unspecified; E11.51 Type 2 diabetes mellitus with diabetic peripheral angiopathy without gangrene; N40.0 Benign prostatic hyperplasia without lower urinary tract symptoms; I25.10 Atherosclerotic heart disease of native coronary artery without angina pectoris; M19.90 Unspecified osteoarthritis, unspecified site; Z93.2 Ileostomy status; Z86.73 Personal history of transient ischemic attack (TIA), and cerebral infarction without residual deficits; Z90.49 Acquired absence of other specified parts of digestive tract; Z95.5 Presence of coronary angioplasty implant and graft; Z93.3 Colostomy status; X58.XXXD Exposure to other specified factors, subsequent encounter ==

== ENCOUNTER → 2024-07-20 | Outpatient (CLI) | payer MEDICARE | END | disposition home or self-care (01) | LOC: WOUNDCARE 02:09 | PROVIDERS: ATTEND Nurse Practitioner Family | DX: S81.812D Laceration without foreign body, left lower leg, subsequent encounter (principal); E11.622 Type 2 diabetes mellitus with other skin ulcer; L97.822 Non-pressure chronic ulcer of other part of left lower leg with fat layer exposed; R21 Rash and other nonspecific skin eruption; L24.B1 Irritant contact dermatitis related to digestive stoma or fistula; E11.51 Type 2 diabetes mellitus with diabetic peripheral angiopathy without gangrene; I10 Essential (primary) hypertension; I48.0 Paroxysmal atrial fibrillation; J44.9 Chronic obstructive pulmonary disease, unspecified; N40.1 Benign prostatic hyperplasia with lower urinary tract symptoms; M19.90 Unspecified osteoarthritis, unspecified site; M47.812 Spondylosis without myelopathy or radiculopathy, cervical region; G47.33 Obstructive sleep apnea (adult) (pediatric); R60.0 Localized edema; E78.5 Hyperlipidemia, unspecified; E66.9 Obesity, unspecified; F17.290 Nicotine dependence, other tobacco product, uncomplicated; Z68.29 Body mass index [BMI] 29.0-29.9, adult; Z86.73 Personal history of transient ischemic attack (TIA), and cerebral infarction without residual deficits; Z85.3 Personal history of malignant neoplasm of breast; Z95.818 Presence of other cardiac implants and grafts; Z93.2 Ileostomy status; Z90.10 Acquired absence of unspecified breast and nipple; Z79.899 Other long term (current) drug therapy; X58.XXXD Exposure to other specified factors, subsequent encounter ==

== ENCOUNTER → 2024-07-24 | Outpatient (CLI) | payer MEDICARE | END | disposition home or self-care (01) | LOC: WOUNDCARE 15:07 | PROVIDERS: ATTEND Nurse Practitioner Family | DX: S81.812D Laceration without foreign body, left lower leg, subsequent encounter (principal); E11.622 Type 2 diabetes mellitus with other skin ulcer; L97.822 Non-pressure chronic ulcer of other part of left lower leg with fat layer exposed; R21 Rash and other nonspecific skin eruption; L24.B1 Irritant contact dermatitis related to digestive stoma or fistula; E11.51 Type 2 diabetes mellitus with diabetic peripheral angiopathy without gangrene; I10 Essential (primary) hypertension; I48.0 Paroxysmal atrial fibrillation; J44.9 Chronic obstructive pulmonary disease, unspecified; N40.1 Benign prostatic hyperplasia with lower urinary tract symptoms; M19.90 Unspecified osteoarthritis, unspecified site; M47.812 Spondylosis without myelopathy or radiculopathy, cervical region; G47.33 Obstructive sleep apnea (adult) (pediatric); R60.0 Localized edema; E78.5 Hyperlipidemia, unspecified; E66.9 Obesity, unspecified; F17.290 Nicotine dependence, other tobacco product, uncomplicated; Z68.29 Body mass index [BMI] 29.0-29.9, adult; Z86.73 Personal history of transient ischemic attack (TIA), and cerebral infarction without residual deficits; Z85.3 Personal history of malignant neoplasm of breast; Z95.818 Presence of other cardiac implants and grafts; Z93.2 Ileostomy status; Z90.10 Acquired absence of unspecified breast and nipple; Z79.899 Other long term (current) drug therapy; X58.XXXD Exposure to other specified factors, subsequent encounter ==

== ENCOUNTER → 2024-07-27 | Outpatient (CLI) | payer MEDICARE | END | disposition home or self-care (01) | LOC: WOUNDCARE 00:40 | PROVIDERS: ATTEND Nurse Practitioner Family | DX: S81.812D Laceration without foreign body, left lower leg, subsequent encounter (principal); E11.622 Type 2 diabetes mellitus with other skin ulcer; L97.822 Non-pressure chronic ulcer of other part of left lower leg with fat layer exposed; R21 Rash and other nonspecific skin eruption; L24.B1 Irritant contact dermatitis related to digestive stoma or fistula; E11.51 Type 2 diabetes mellitus with diabetic peripheral angiopathy without gangrene; I10 Essential (primary) hypertension; I48.0 Paroxysmal atrial fibrillation; J44.9 Chronic obstructive pulmonary disease, unspecified; N40.1 Benign prostatic hyperplasia with lower urinary tract symptoms; M19.90 Unspecified osteoarthritis, unspecified site; M47.812 Spondylosis without myelopathy or radiculopathy, cervical region; G47.33 Obstructive sleep apnea (adult) (pediatric); R60.0 Localized edema; E78.5 Hyperlipidemia, unspecified; E66.9 Obesity, unspecified; F17.290 Nicotine dependence, other tobacco product, uncomplicated; Z68.29 Body mass index [BMI] 29.0-29.9, adult; Z86.73 Personal history of transient ischemic attack (TIA), and cerebral infarction without residual deficits; Z95.818 Presence of other cardiac implants and grafts; Z93.2 Ileostomy status; Z90.10 Acquired absence of unspecified breast and nipple; Z85.3 Personal history of malignant neoplasm of breast; Z79.899 Other long term (current) drug therapy; X58.XXXD Exposure to other specified factors, subsequent encounter ==

== ENCOUNTER → 2024-08-04 | Outpatient (CLI) | payer MEDICARE ==
[2024-08-04 16:21] LABS: BASO % 0.3 % (0.0-1.0); EOS # 0.1 10*3/uL (0.0-0.4); EOS % 1.4 % (1.0-4.0); HEMATOCRIT 35.9 % (42.0-52.0); MEAN CELL VOLUME 91.3 fl (80.0-94.0); MEAN CORPUSCULAR HGB CONC 30.6 g/dl (33.0-37.0); MEAN PLATELET VOLUME 10.2 fl (9.6-12.3); MONO # 0.5 10*3/uL (0.1-1.0); MONO % 7.8 % (3.0-9.0); NEUT # 4.4 10*3/uL (2.3-7.9); NEUT % 66.6 % (47.0-73.0); PLATELET COUNT AUTOMATED 216 10*3/uL (130-400); RED BLOOD COUNT 3.93 10*6/uL (4.50-5.90); RED CELL DISTRI WIDTH 13.7 % (0-14.5); WHITE BLOOD COUNT 6.5 10*3/uL (4.8-10.8)
[2024-08-04 16:52] LABS: POTASSIUM 3.6 mmol/L (3.4-5.1)
== END | disposition home or self-care (01) ==
LOC: RESCLI → LAB 01:10 → RESCLI 01:10
PROVIDERS: ATTEND Internal Medicine
DX: S81.802A Unspecified open wound, left lower leg, initial encounter (principal); X58.XXXA Exposure to other specified factors, initial encounter; Y93.89 Activity, other specified; Y92.89 Other specified places as the place of occurrence of the external cause; Y99.8 Other external cause status

== ENCOUNTER → 2024-08-14 | Outpatient (CLI) | payer MEDICARE ==
[2024-08-14 17:19] LABS: BASO % 0.3 % (0.0-1.0); EOS # 0.2 10*3/uL (0.0-0.4); EOS % 2.4 % (1.0-4.0); HEMATOCRIT 37.1 % (42.0-52.0); MEAN CELL VOLUME 90.9 fl (80.0-94.0); MEAN CORPUSCULAR HGB 27.5 pg (27.0-31.0); MEAN CORPUSCULAR HGB CONC 30.2 g/dl (33.0-37.0); MEAN PLATELET VOLUME 10.3 fl (9.6-12.3); MONO # 0.5 10*3/uL (0.1-1.0); MONO % 7.3 % (3.0-9.0); NEUT # 4.6 10*3/uL (2.3-7.9); NEUT % 65.5 % (47.0-73.0); PLATELET COUNT AUTOMATED 208 10*3/uL (130-400); RED BLOOD COUNT 4.08 10*6/uL (4.50-5.90); RED CELL DISTRI WIDTH 13.6 % (0-14.5)
[2024-08-14 17:53] LABS: POTASSIUM 3.2 mmol/L (3.4-5.1); T3 UPTAKE 39.3 % (22.4-36.7); THYROXINE (T4) TOTAL 4.5 ug/dl (4.5-10.9); TOTAL PROTEIN 7.2 gm/dL (6.0-8.0)
== END | disposition home or self-care (01) ==
LOC: LAB 16:53
PROVIDERS: ATTEND Psychiatry & Neurology Neurology
DX: F03.90 Unspecified dementia, unspecified severity, without behavioral disturbance, psychotic disturbance, mood disturbance, and anxiety (principal)

== ENCOUNTER → 2024-08-23 | Outpatient (CLI) | payer MEDICARE | END | disposition home or self-care (01) | LOC: WOUNDCARE 01:27 | PROVIDERS: ATTEND Nurse Practitioner Family | DX: S81.812D Laceration without foreign body, left lower leg, subsequent encounter (principal); L24.B1 Irritant contact dermatitis related to digestive stoma or fistula; I10 Essential (primary) hypertension; I48.0 Paroxysmal atrial fibrillation; K57.92 Diverticulitis of intestine, part unspecified, without perforation or abscess without bleeding; J44.9 Chronic obstructive pulmonary disease, unspecified; G56.01 Carpal tunnel syndrome, right upper limb; E78.5 Hyperlipidemia, unspecified; E11.51 Type 2 diabetes mellitus with diabetic peripheral angiopathy without gangrene; D86.9 Sarcoidosis, unspecified; N40.1 Benign prostatic hyperplasia with lower urinary tract symptoms; I25.10 Atherosclerotic heart disease of native coronary artery without angina pectoris; M19.90 Unspecified osteoarthritis, unspecified site; E66.01 Morbid (severe) obesity due to excess calories; F17.200 Nicotine dependence, unspecified, uncomplicated; Z93.2 Ileostomy status; Z68.30 Body mass index [BMI] 30.0-30.9, adult; Z79.01 Long term (current) use of anticoagulants; Z79.899 Other long term (current) drug therapy; Z98.890 Other specified postprocedural states; X58.XXXD Exposure to other specified factors, subsequent encounter ==

== ENCOUNTER 2024-10-16 15:56 | Inpatient (IN) | payer MEDICARE ==
[~2024-10-16] VITALS: Ht 177.8 cm; Wt 76.8 kg
[2024-10-16 16:07] VITALS: BP 159/89
[2024-10-16] MEDS ORDERED: IOHEXOL 300 MG/ML 100 ML VIAL IV ONE (16:25)
[2024-10-16 16:46] LABS: BASO % 0.1 % (0.0-1.0); EOS # 0.1 10*3/uL (0.0-0.4); EOS % 1.1 % (1.0-4.0); HEMATOCRIT 45.9 % (42.0-52.0); MEAN CELL VOLUME 83.6 fl (80.0-94.0); MEAN CORPUSCULAR HGB 26.4 pg (27.0-31.0); MEAN CORPUSCULAR HGB CONC 31.6 g/dl (33.0-37.0); MEAN PLATELET VOLUME 11.9 fl (9.6-12.3); MONO # 0.3 10*3/uL (0.1-1.0); MONO % 3.7 % (3.0-9.0); NEUT # 7.7 10*3/uL (2.3-7.9); PLATELET COUNT AUTOMATED 130 10*3/uL (130-400); RED BLOOD COUNT 5.49 10*6/uL (4.50-5.90); RED CELL DISTRI WIDTH 15.9 % (0-14.5); WHITE BLOOD COUNT 8.9 10*3/uL (4.8-10.8)
[2024-10-16 16:55] LABS: ACT PARTIAL THROMBO TIME 32.2 SECONDS (20.0-32.1)
[2024-10-16 17:08] LABS: ALKALINE PHOSPHATASE 882 U/L (46-116); BUN 35 mg/dl (9-23); CHLORIDE 93 mmol/L (98-107); ETHYL ALCOHOL < 3.0 mg/dl (<3); LIPASE 87 U/L (12-53); POTASSIUM 4.1 mmol/L (3.4-5.1); SGPT/ALT 251 U/L (5-49); TOTAL PROTEIN 8.3 gm/dL (6.0-8.0)
[2024-10-16] MEDS ORDERED: Iodixanol 320 100 ML VIAL IV ONE (17:15)
[2024-10-16] MEDS ORDERED: SODIUM CHLORIDE 0.9% 1,000 ML IV ONE (18:10)
[2024-10-16] MEDS ORDERED: Magnesium Hydroxide 30 ML UDC PO PRN (23:30)
[2024-10-16] MEDS ORDERED: BISACODYL 5 MG TAB PO PRN (23:30)
[2024-10-16] MEDS ORDERED: ACETAMINOPHEN 650 MG SUPP R PRN (23:30)
[2024-10-16] MEDS ORDERED: Ondansetron Hydrochloride 4 MG/2 ML VIAL IV PRN (23:30)
[2024-10-16] MEDS ORDERED: MORPHINE Sulfate 2 MG/ML SYR IV PRN (23:30)
[2024-10-16] MEDS ORDERED: ATROPINE SULFATE 1% 2 ML BOTTLE SL PRN (23:35)
[2024-10-16] MEDS ORDERED: diazePAM 10 MG/2 ML SYR IV PRN (23:35)
[2024-10-17 04:26] VITALS: BP 147/73
[2024-10-17 07:06] LABS: HBsAG SCREEN Negative (Negative); HCV Ab Non Reactive (Non Reactive); HEP B CORE Ab, IgM Negative (Negative)
[2024-10-17 09:09] VITALS: BP 180/105
[2024-10-17] MEDS ORDERED: METOPROLOL SUCCINATE XR 25 MG TAB PO SCH (10:00)
[2024-10-17] MEDS ORDERED: Losartan Potassium 50 MG TAB PO SCH (10:00)
[2024-10-17] MEDS ORDERED: ATORVASTATIN CALCIUM 40 MG TABLET PO SCH (10:00)
[2024-10-17] MEDS ORDERED: OXYCODONE5 M1 PO (11:45)
== END 2024-10-17 14:20 | disposition home or self-care (01) | DRG 436 ==
LOC: ED → EDHOLD 23:07
PROVIDERS: Internal Medicine; ADMIT Internal Medicine; ATTEND Internal Medicine
DX: C25.9 Malignant neoplasm of pancreas, unspecified (principal); C78.7 Secondary malignant neoplasm of liver and intrahepatic bile duct; N17.9 Acute kidney failure, unspecified; J90 Pleural effusion, not elsewhere classified; I13.0 Hypertensive heart and chronic kidney disease with heart failure and stage 1 through stage 4 chronic kidney disease, or unspecified chronic kidney disease; E87.1 Hypo-osmolality and hyponatremia; R17 Unspecified jaundice; I50.32 Chronic diastolic (congestive) heart failure; D73.5 Infarction of spleen; Z66 Do not resuscitate; I48.91 Unspecified atrial fibrillation; I25.10 Atherosclerotic heart disease of native coronary artery without angina pectoris; K57.90 Diverticulosis of intestine, part unspecified, without perforation or abscess without bleeding; F03.90 Unspecified dementia, unspecified severity, without behavioral disturbance, psychotic disturbance, mood disturbance, and anxiety; G47.33 Obstructive sleep apnea (adult) (pediatric); F17.220 Nicotine dependence, chewing tobacco, uncomplicated; R73.9 Hyperglycemia, unspecified; R74.8 Abnormal levels of other serum enzymes; E78.5 Hyperlipidemia, unspecified; N18.32 Chronic kidney disease, stage 3b; Z86.73 Personal history of transient ischemic attack (TIA), and cerebral infarction without residual deficits; Z90.49 Acquired absence of other specified parts of digestive tract; Z82.49 Family history of ischemic heart disease and other diseases of the circulatory system; Z80.1 Family history of malignant neoplasm of trachea, bronchus and lung; Z88.0 Allergy status to penicillin; Z79.899 Other long term (current) drug therapy